=== PATIENT | female | born 1955 | race Caucasian/White ===

== ENCOUNTER 2019-06-12 06:34 | Inpatient (IN) ==
--- NOTE | 2019-05-22 09:31 | PAT Medication Instructions ---
Medication Instructions Date of Service May 22, 2019 Home Medications acetaminophen [Tylenol Extra Strength] 500 mg PO Q6H PRN albuterol sulfate 2 puff INHALATION Q6H PRN aspirin [Aspir-81] 81 mg PO QAM budesonide-formoterol [Symbicort] 2 puff INHALATION Q12H cyclosporine [Restasis] 1 drp OPHTHALMIC (EYE) Q12H levothyroxine 125 mcg PO QAM meloxicam 7.5 mg PO BID montelukast [Singulair] 10 mg PO PM omeprazole 40 mg PO BID simvastatin 20 mg PO HS ASK your surgeon for instructions meloxicam 7.5 mg PO BID Take morning of surgery With a small sip of water, OTHERWISE NOTHING TO EAT OR DRINK AFTER MIDNIGHT: acetaminophen [Tylenol Extra Strength] 500 mg PO Q6H PRN (okay to take up to 4 hours prior to surgery if needed) albuterol sulfate 2 puff INHALATION Q6H PRN (use if needed; please bring with you to hospital day of surgery if possible) aspirin [Aspir-81] 81 mg PO QAM budesonide-formoterol [Symbicort] 2 puff INHALATION Q12H cyclosporine [Restasis] 1 drp OPHTHALMIC (EYE) Q12H levothyroxine 125 mcg PO QAM omeprazole 40 mg PO BID Take evening before surgery acetaminophen [Tylenol Extra Strength] 500 mg PO Q6H PRN (if needed) albuterol sulfate 2 puff INHALATION Q6H PRN (if needed) budesonide-formoterol [Symbicort] 2 puff INHALATION Q12H cyclosporine [Restasis] 1 drp OPHTHALMIC (EYE) Q12H montelukast [Singulair] 10 mg PO PM omeprazole 40 mg PO BID simvastatin 20 mg PO HS Other Notes If you have any questions please call us at [phone] or [phone] or [phone] or [phone]
--- NOTE | 2019-05-23 14:03 | Anesthesiology Consultation ---
Date of Service May 23, 2019 Assessment & Plan (1) Encounter for pre-operative examination: (2) Obesity: - Awaiting review preop testing (labs, EKG, CXR). - Awaiting surgeon-ordered PCP preop evaluation. - Patient anxious RE: SAB: Patient reports fidgeting/aggressive reaction with either thumb surgery or shoulder surgery done with block + light sedation. Patient also anxious regarding SAB/hx migraines. Discussed SAB vs. GA: questions/concerns answered. Advised patient to discuss further AM DOS. Chart Review Chart Review: Patient seen in Pre Admission Testing Teaching & Discussion Pre-Anesthesia Teaching/Discussion Notes: Instructed NPO after midnight before surgery,except medications with 15 cc of water. Medication instructions provided according to the PAT guidelines. History Surgery Operation Date: 06/12/19 15:05 Proposed Procedures p Right Total Knee Arthroplasty - David Dinh MD Height/Weight Height: 5 ft Weight: 85 kg Allergies Allergy/AdvReac Type Severity Reaction Status Date / Time mold Allergy Unknown MOLD TREE Verified 05/15/19 13:20 POLLEN-ASTHMA SYMPTOMS adhesive tape AdvReac Unknown SKIN Verified 05/15/19 13:21 IRRITATION -PAPER TAPE OK garlic AdvReac Unknown NAUSEA AND Unverified 05/15/19 13:20 VOMITNG Penicillins AdvReac Unknown COLITIS Verified 05/15/19 13:20 INTERNAL BLEEDING tomato AdvReac Unknown TOMATO Verified 05/15/19 13:20 SAUCE-GERD Medications Home Medications Medication Instructions Recorded Confirmed Last Taken acetaminophen [Tylenol Extra 500 mg PO Q6H PRN 05/15/19 05/15/19 Unknown Strength] albuterol sulfate 2 puff INHALATION Q6H PRN 05/15/19 05/15/19 Unknown aspirin [Aspir-81] 81 mg PO QAM 05/15/19 05/15/19 Unknown budesonide-formoterol [Symbicort] 2 puff INHALATION Q12H 05/15/19 05/15/19 Unknown cyclosporine [Restasis] 1 drp OPHTHALMIC (EYE) Q12H 05/15/19 05/15/19 Unknown levothyroxine 125 mcg PO QAM 05/15/19 05/15/19 Unknown meloxicam 7.5 mg PO BID 05/15/19 05/15/19 Unknown montelukast [Singulair] 10 mg PO PM 05/15/19 05/15/19 Unknown omeprazole 40 mg PO BID 05/15/19 05/15/19 Unknown simvastatin 20 mg PO HS 05/15/19 05/15/19 Unknown Past Medical History Medical History Obesity Asthma GERD (gastroesophageal reflux disease) controlled Hiatal hernia Hyperlipidemia Hypothyroidism Migraine hx Temporomandibular joint disorder occasional clicking Exercise / Class Metabolic Activity III < 4 Walking/Shop/Light housework Past Family History Family History Mother Family history of diabetes mellitus Past Surgical History Surgical History Exploratory laparotomy scar MULTIPLE RELATED TO ENDOMETRIOSIS H/O shoulder surgery LEFT H/O sinus surgery MULTIPLE History of appendectomy History of arthroscopy R/L KNEE- MENISCUS REPAIR History of carpal tunnel release R/L History of hand surgery LEFT History of hysterectomy TOTAL History of tonsillectomy Past Anesthesia History No Family Hx of Anesthesia Complications and Other *Patient reports fidgeting/aggressive reaction with either thumb surgery or shoulder surgery done with block + light sedation.* History of PONV No Hx of PONV and No Hx of Motion Sickness Social History Smoking Status: Never smoker Do You Dip or Chew Tobacco: No Hx Alcohol Use: No Hx Substance Use: No Review of Systems Reflux controlled. Patient denies chest pain, shortness of breath, cough, wheezing, palpitations. Physical Exam Vital Signs VITALS BP 119/72 P 83 TEMP 98.0 SP02 93%RA RESP 16 PHYSICAL Full neck and c-spine range of motion. Full TMJ range of motion. TMD 3.5 finger breaths Mallampati Score 2 Dentition: temporary bridge lower front (plan to be cemented in prior to surgery/surgeon aware), partials upper/lower Lungs: clear throughout to auscultation Cardiac: regular rate and rhythm, no murmurs noted Spine: normal Carotid arteries: negative bruit Extremities: no edema
--- NOTE | 2019-05-23 15:06 | XRay Report ---
XR chest Pre-admission PA/Lat CLINICAL HISTORY: pat preoperative evaluation COMPARISON STUDY: No previous studies for comparison. FINDINGS: Lungs are clear. No significant cardiac enlargement. Prior left shoulder arthroplasty. IMPRESSION: No acute process. The above report was generated using voice recognition software. It may contain grammatical, syntax or spelling errors. Electronically signed by: Charles Mullen M.D. 05/23/2019 3:05 PM
[2019-05-23 16:07] LABS: Basophils # (auto) 0.04 K/uL (0-0.2); Basophils % (auto) 0.4 %; Eosinophils % (auto) 2.8 %; Hematocrit (blood only) 40.9 % (37-47); Immature Granulocytes # (auto) 0.03 K/uL (0.00-0.02); Immature Granulocytes % (auto) 0.3 %; Lymphocytes # (auto) 2.42 K/uL (1.2-3.4); Lymphocytes % (auto) 22.8 %; Mean Corpuscular Hgb Conc 34.2 g/dL (32-36); Mean Corpuscular Volume 90.7 fL (80-100); Mean Platelet Volume 10.4 fL (7.4-10.4); Monocytes # (auto) 0.88 K/uL (0.11-0.59); Monocytes % (auto) 8.3 %; Neutrophils # (auto) 6.93 K/uL (1.4-6.5); Neutrophils % (auto) 65.4 %; Platelet Count 334 K/uL (130-400); RDW Coefficient of Variation 13.2 % (11.5-14.5); RDW Standard Deviation 43.7 fL (36.4-46.3); Red Blood Count 4.51 M/uL (4.2-5.4)
[2019-05-23 16:15] LABS: Albumin Level 3.8 gm/dl (3.4-5.0); BUN Creatinine Ratio 25.3 (10-20); Calcium 9.3 mg/dl (8.5-10.1); Est GFR (African American) 87.6; Est GFR (Non-African American) 75.6; Potassium 3.8 mmol/L (3.5-5.1)
[2019-05-23 16:21] LABS: Partial Thromboplastin Time 26.4 Seconds (21.0-31.0); Prothrombin Time 10.1 Seconds (9.0-12.0)
[2019-05-24 05:47] LABS: Estimated Average Glucose 117 mg/dl; Hemoglobin A1C 5.7 % (4.5-5.6)
--- NOTE | 2019-06-11 22:16 | History and Physical Report ---
DATE OF ADMISSION: 06/12/2019 CHIEF COMPLAINT: Chronic right knee pain and instability. HISTORY OF PRESENT ILLNESS: This is a 63-year-old female patient of Dr. Dinh'senia complaining of chronic right knee pain and instability, longstanding, now progressively getting worse. The patient has failed conservative treatment including intra-articular injections, anti-inflammatories, home exercise program and the use of a brace and a cane. The patient has increased pain with weightbearing activities and her pain does interfere with her activities of daily living. The patient was diagnosed with end-stage osteoarthritis per clinical and radiographic exams and wishes to proceed with a right total knee arthroplasty. PAST MEDICAL HISTORY: Hypercholesterolemia, asthma, hypothyroidism, osteoarthritis, neck problems, sciatica, acid reflux, hiatal hernia, obesity. SOCIAL HISTORY: Nonsmoker, nondrinker. PAST SURGICAL HISTORY: Left shoulder replacement, hysterectomy, appendectomy, tonsillectomy, multiple sinus surgeries, bilateral knee meniscal repairs, bilateral carpal tunnel and left thumb fusion. FAMILY HISTORY: Noncontributory. REVIEW OF SYSTEMS: Chronic right knee pain and instability. Otherwise, denies any shortness of breath, chest pain, nausea, vomiting, or any joint complaints. MEDICATIONS: 1. Montelukast 10 mg daily. 2. Meloxicam 7.5 mg daily. 3. Omeprazole 40 mg twice daily. 4. Simvastatin 20 mg daily. 5. Budesonide/formoterol 160/4.5 mcg actuation inhaler 2 puffs twice daily. 6. Levothyroxine 112 mcg daily. 7. Zyrtec 10 mg daily. 8. Nasacort 55 mcg actuation inhaler 2 sprays twice daily. 9. DuoNeb nebulizer 0.5/2.5 mg per 3 mL nebulizers 4 times daily as needed. 10. Prophylactic antibiotics for dental work only. 11. Restasis 0.05% ophthalmic solution 1 drop in both eyes twice daily. 12. Sumatriptan 50 mg for migraines as needed. 13. Ventolin inhaler 108 mcg actuation inhaler daily as needed. 14. Aspirin 81 mg daily. ALLERGIES: INCLUDE PENICILLIN WHICH CAUSES GASTRITIS. PHYSICAL EXAMINATION: GENERAL: Well-developed, well-nourished, 63-year-old female in no acute distress. She is alert and oriented x3 and pleasant. HEENT: Normocephalic, atraumatic. Extraocular motions are intact. Pupils are equal and reactive to light. HEART: Regular rate and rhythm, no murmurs. LUNGS: Clear. ABDOMEN: Soft and nontender. Bowel sounds are present. EXTREMITIES: Right knee reveals a limited range of motion of 0-125 degrees. She has a varus deformity with medial joint line tenderness. She has crepitation with range of motion. She has 5/5 strength with pain in her right lower extremity. NEUROLOGIC: Neurovascularly, she is intact in her right lower extremity and she is noticed to need a cane with ambulation. DIAGNOSES: Right knee end-stage osteoarthritis, hypercholesterolemia, asthma, hypothyroidism, osteoarthritis, neck problems, sciatica, acid reflux, hiatal hernia, obesity. PLAN: The patient was advised of her diagnosis. Indications, risks, benefits, postop course have all been reviewed. The patient wished to proceed with a right total knee arthroplasty. Necessary consent forms, preoperative testing and clearances will be obtained.
[~2019-06-12 06:34] MED LIST: ACETAMINOPHEN 500 MG TAB PO SCH; CeleBREX 200 MG CAP PO SCH; FAMOTIDINE 20 MG TAB PO SCH; GABAPENTIN 600 MG DOSE PO SCH; LR 500ML BOLUS, THEN 15ML/HR IV SCH; METOCLOPRAMIDE HCL 10 MG TABLET PO SCH; ROPIVACAINE 0.5% HCL/PF 150 MG, BUPIVACAINE 0.5% MPF 30 ML, EPINEPHrine 30MG/30ML (OR U... INFIL SCH; TRANEXAMIC ACID 1,000 MG **IV Intra-op IV SCH; TRANEXAMIC ACID 1,000 MG **IV Pre-op IV SCH; VANCOMYCIN HCL 1,250 MG in SODIUM CHLORIDE 0.9% 250 ML IV SCH; dexAMETHasone 4 MG TAB PO SCH
[2019-06-12] MEDS ORDERED: ROPIVACAINE 0.5% 5 MG/ML 30 ML VIAL ONE (06:42)
[2019-06-12] MEDS ORDERED: BUPIVACAINE 0.5 % 5 MG/1 ML PF 10ML VIAL ONE (06:42)
[2019-06-12] MEDS ORDERED: EPINEPHrine INJ 1 MG/ML AMP ONE (06:43)
--- NOTE | 2019-06-12 07:08 | History & Physical Bridge Note ---
Date of Service June 12, 2019 History & Physical Bridge Note I have examined the patient, reviewed the History & Physical and in the interval since the performance of the History & Physical I have noted the following changes of clinical significance: no changes noted
[2019-06-12] MEDS ORDERED: fentaNYL citrate 100 MCG/2 ML VIAL IV PRN (07:21)
[2019-06-12] MEDS ORDERED: ATROPINE SULFATE 0.1 MG/ML 10ML SYR IV PRN (07:21)
[2019-06-12] MEDS ORDERED: LABETALOL HCL IV 5 MG/ML 20ML IV PRN (07:21)
[2019-06-12] MEDS ORDERED: ePHEDrine sulfate 50 MG/ML AMP IV PRN (07:21)
[2019-06-12] MEDS ORDERED: MEPERIDINE HCL 25 MG/ML CARP IV PRN (07:21)
[2019-06-12] MEDS ORDERED: ONDANSETRON INJ 2 MG/ML 2 ML VIAL IV PRN ×2 (07:21→12:05)
[2019-06-12] MEDS ORDERED: PHENYLEPHRINE 100MCG/ML 5ML SYR IV PRN (07:21)
[2019-06-12] MEDS ORDERED: HYDROmorphone INJ 1 MG/ML SYRINGE IV PRN (07:21)
[2019-06-12] MEDS ORDERED: ORTHO JOINT ANESTHETIC ONE (07:41)
[2019-06-12] MEDS ORDERED: BACITRACIN INJ 50,000 UNIT VIAL ONE (07:41)
[2019-06-12] MEDS ORDERED: MIDAZOLAM HCL 1 MG/ML 2ML VIAL ONE ×2 (07:57→08:48)
[2019-06-12] MEDS ORDERED: ONDANSETRON INJ 2 MG/ML 2 ML VIAL ONE (07:57)
[2019-06-12] MEDS ORDERED: LIDOCAINE HCL 2% 2 ML VIAL/AMP(20MG/ML) INFIL ONE (07:57)
[2019-06-12] MEDS ORDERED: PROPOFOL IV EMULSION 10 MG/ML 20 ML VIAL IV ONE (07:57)
[2019-06-12] MEDS ORDERED: KETAMINE HCL INJ 50 MG/ML 10 ML VIAL ONE (07:57)
[2019-06-12] MEDS ORDERED: GLYCOPYRROLATE 0.2 MG/ML VIAL ONE (07:57)
[2019-06-12] MEDS ORDERED: DEXAMETHASONE SOD INJ 4 MG/ML VIAL ONE (07:57)
--- NOTE | 2019-06-12 10:25 | Operative Report ---
Post Operative Report Pre & Post Diagnosis Operation Date: 06/12/19 08:50 Pre-Op Diagnosis: Right Knee End-Stage Osteoarthritis Post-Op Diagnosis: Right Knee End-Stage Osteoarthritis I identified the patient and participated in the time-out.: Yes Procedure Operation Date: 06/12/19 08:50 Actual Procedures p Right Total Knee Arthroplasty(Right) - David Dinh MD Surgeon David Dinh MD Product Expert Kody ARREDONDO Estimated Blood Loss 5 Findings Consistent with Post-Op Diagnosis Specimens Bone cuts Drains 2 Hemovac Anesthesia Type MAC Spinal Regional Complications none Disposition Accompanied Patient To Recovery: No Disposition: Recovery Room Indications 61-year-old female with chronic progressive osteoarthritis in her right knee. Radiographs demonstrate she is a varus knee [id number] medial compartment subluxation of femur on the tibia. Description of Procedure Patient taken to the operating room the size under spinal MAC regional anesthesia. Patient was placed supine on the operating table. A pneumatic tourniquet was placed about the right upper thigh. The right lower extremity was prepped and draped in sterile fashion. Knee exam demonstrated positive Sully exam subluxation the femur on tibia varus knee 0 through 125 degrees range of motion. The leg was elevated exsanguinated with an Esmarch bandage and pneumatic tourniquet was raised to 325 millimeters of mercury. Skin incised sharply in longitudinal fashion. Subcutaneous flaps elevated. Incision was made through the medial retinaculum extending up in the mid third of the quadriceps tendon and down to the medial tibial tubercle. Intra-articular findings demonstrated tricompartmental osteoarthritis [id number] medial compartment chronic ACL tear. The MWI triathlon total knee arthroplasty system was used. To expose the knee the infrapatellar fat pad was resected. The meniscal remnants and cruciate ligaments were resected. The anterior fat pad over the femur in the area of the anterior flange of the femoral component was resected. Lateral synovial bands release. The femur was exposed. An in tramedullary drill hole was made into the canal. A guide jyoti was placed. Distal femoral cutting guide was adjusted to resect a 5 degree valgus cut with 8 millimeters distal femur resected. The knee was extended and a subperiosteal peel lateral release was performed around the patella. Patella width was measured and width was reproduced using a freehand cut technique and a 31 x 9 symmetrical patella component. The 3 drill holes were made and the excess lateral facet was beveled off to prevent any impingement. Attention was taken back to the femur which was exposed with retractors and the femoral sizing guide was pinned in position. The drill holes were placed in 3 of external rotation to match epicondylar axis. Femur sized for a 4 component. The 4-in-1 cutting block was placed and then the anterior posterior and chamfer cuts are made. The tibia was then subluxed. The external tibial cutting guide was just to make a perpendicular cut to the long axis of the tibia below the most deficient bone loss side. A lamina veneer trimmer was used and the flexion extension gaps were balanced. All posterior osteophytes removed. All meniscal remnants were resected. The tibia exposed and the trial tibial component size 3 was externally rotated in line with the tibial tubercle and pinned in position. The punch for stem was used. Drill holes were made in the sclerotic bone medial proximal tibia to enhance cement fixation. The notch cutting device was centered appropriately and the femoral notch cut was made. The femoral trial was inserted. Trial tibial inserts were placed and size 11 gave balanced ligaments through flexion and extension. Patella tracking was assessed. The patella tracked centrally. The trial components were then removed and the orthomix anesthetic cocktail was injected per protocol. The knee was then copiously irrigated with pulsatile lavage antibiotic solution. Final components were then cemented with Simplex cement. Final components were Lenox triathlon size 4 right posterior stabilized femoral component, 3 primary tibial baseplate, 3 bilaminar X3 polyethylene triathlon posterior stabilized tibial bearing insert. Triathlon X3 symmetrical patella S 31 x 9 mm.. While the cement cured the Betadine soak was used per protocol. After cement cured further pulsatile lavage irrigation performed and 2 Hemovac drains were brought out laterally. The quadriceps tendon and medial retinaculum were closed with figure of 8 #1 Vicryl sutures. The knee was taken through full range of motion and the repair was secure. The subcutaneous tissues were closed with 2-0 Vicryl sutures. Skin was closed with damien. Sterile dressings were applied. Patient procedure well. Kody ARREDONDO was my physician assistant professor of drama who assisted in patient positioning prepping and draping,leg positioning ,soft tissue retraction and instrument management and participated in the closing and will participate in postoperative care of the patient. The patient tolerated the procedure well. I attest to the content of the Intraoperative Record and any orders documented therein. Any exceptions are noted below.
--- NOTE | 2019-06-12 11:25 | Anesthesiology Progress Note ---
Date of Service June 12, 2019 Anesthesia Post Procedure Vital Signs Vital Signs: Temp Pulse Pulse Resp BP Pulse Ox 06/12/19 11:10 83 19 103/66 93 06/12/19 11:00 87 18 99/63 L 92 06/12/19 10:50 36.4 C L 101 H 16 104/55 L 92 06/12/19 07:06 36.5 C 72 20 143/82 H 93 Transfer of Care Handoff Completed per policy Notes Mental Status: alert / awake / arousable Patient Amnestic to Procedure: Yes Nausea / Vomiting: adequately controlled Pain: adequately controlled Airway Patency, RR, SpO2: stable & adequate BP & HR: stable & adequate Hydration State: stable & adequate Neuraxial Anesthesia: was administered and sensory block is resolving Anesthetic Complications: no major complications apparent and Pt Satisfied with anesthetic care Notes: The patient had two spinals with CSF noted on both attempts. The patient did not have resulting numbness in the and was able to move her legs in the OR so a general anesthetic was performed. The patient tolerated the procedure well. In the PACU, the patient is moving her legs but does appear to have some numbness from the spinals as well as the adductor block. The patient has no pain. The patient was instructed to watch for any new onset of numbness, weakness, or incontinence and to report any of those signs immediately to a nurse on the floor if in the hospital or to go to the ER if at home.
--- NOTE | 2019-06-12 11:32 | XRay Report ---
TWO VIEWS RIGHT KNEE CLINICAL HISTORY: Postoperative examination. FINDINGS: AP and crosstable lateral portable views of the right knee are obtained. A right knee arthr oplasty is in near anatomic alignment. There has been undersurface remodeling of the patella. No acut e fracture is seen. There are expected postoperative changes around the knee including skin clips, a surgical drain, soft tissue edema, and subcutaneous gas. IMPRESSION: Expected postoperative changes status post right knee arthroplasty. No acute fracture is seen. Electronically signed by: Ko Carlin M.D. 06/12/2019 11:30 AM
[2019-06-12] MEDS ORDERED: VANCOMYCIN CONSULT ACTIVE PRN (12:05)
[2019-06-12] MEDS ORDERED: BISACODYL 10 MG SUPP PR PRN (12:05)
[2019-06-12] MEDS ORDERED: MAGNESIUM HYDROXIDE SUSP 30 ML UDC PO PRN (12:05)
[2019-06-12] MEDS ORDERED: ALBUTEROL HFA 8 GM INHALER INH PRN (12:05)
[2019-06-12] MEDS ORDERED: NON-FORMULARY MEDICATION (Cyclosporine [Restasis] 1 DROPS) OP SCH (12:05)
[2019-06-12] MEDS ORDERED: NALOXONE HCL 0.4 MG/1 ML VIAL/CARP IV PRN (12:05)
[2019-06-12] MEDS: ACETAMINOPHEN 500 MG TAB PO SCH ×2 (13:45→20:28)
[2019-06-12] MEDS: SODIUM CHLORIDE 0.9% 1000ML 1,000 ML IV SCH ×2 (13:45→22:14)
[2019-06-12] MEDS: OXYCODONE HCL IR 5 MG TAB (IMMEDIATE RELEASE) PO PRN ×2 (13:46→19:05)
[2019-06-12] MEDS: BUDESONIDE/FORMOTEROL FUMARATE 160/4.5 60 PUFFS/INHALER INH SCH ×2 (13:51→23:11)
[2019-06-12] MEDS ORDERED: ALBUT/IPRATROP 3MG/0.5MG NEB 3 ML VIAL NEB PRN (16:06)
--- NOTE | 2019-06-12 16:17 | Hospitalist Consultation ---
Date of Consultation June 12, 2019 Assessment & Plan (1) Knee pain: s/o R TKA on 06/[address] Dinh As per ortho Pre-op Hb 14.0 (2) Asthma: Some air gasping when I entered the room initially, but this cleared with coughing and appears related to eating too quickly No wheezing noted PRN nebs Feels asthma is well controlled with symbicort, rare home albuterol use (3) Hypothyroidism: continue home meds (4) Hyperlipidemia: continue home meds (5) GERD (gastroesophageal reflux disease): continue home meds (6) DVT prophylaxis: As per ortho Hx of 81mg aspirin use for prevention only, resume as per ortho History of Present Illness Attending Physician: David Dinh MD History of Present Illness 63 y/o F who was admitted on 06/12 s/p R TKA with Dr. Dinh. As I entered the room, pt was coughing and gasping. She had been eating and suddenly felt like she could not swallow. She states the beef she was eating was dry. She states she was not SOB prior to eating. She is uncertain if this is similar to her asthma or if it was related to eating too quickly. She does not know if she was wheezing. Pt denies fever, chest pain, abd pain, n/v/c/d, LE swelling. No pain related to OR. By the end of discussion, pt was no longer coughing or gasping and had resumed her meal stating she felt better. Allergies Allergy/AdvReac Type Severity Reaction Status Date / Time mold Allergy Unknown MOLD TREE Verified 06/12/19 07:18 POLLEN-ASTHMA SYMPTOMS adhesive tape AdvReac Unknown SKIN Verified 06/12/19 07:18 IRRITATION -PAPER TAPE OK garlic AdvReac Unknown NAUSEA AND Verified 06/12/19 07:18 VOMITNG Penicillins AdvReac Unknown COLITIS Verified 06/12/19 07:18 INTERNAL BLEEDING tomato AdvReac Unknown TOMATO Verified 06/12/19 07:18 SAUCE-GERD Home Medications Home Medications Medication Instructions Recorded Confirmed Type acetaminophen [Tylenol Extra 500 mg PO Q6H PRN 05/15/19 06/12/19 History Strength] albuterol sulfate 2 puff INHALATION Q6H PRN 05/15/19 05/15/19 History aspirin [Aspir-81] 81 mg PO QAM 05/15/19 05/15/19 History budesonide-formoterol [Symbicort] 2 puff INHALATION Q12H 05/15/19 06/12/19 History cyclosporine [Restasis] 1 drp OPHTHALMIC (EYE) Q12H 05/15/19 05/15/19 History levothyroxine 112 mcg PO QAM 05/15/19 05/23/19 History meloxicam 7.5 mg PO BID 05/15/19 05/15/19 History montelukast [Singulair] 10 mg PO PM 05/15/19 06/12/19 History omeprazole 40 mg PO BID 05/15/19 06/12/19 History simvastatin 20 mg PO HS 05/15/19 06/12/19 History Patient History Medical History Obesity Asthma GERD (gastroesophageal reflux disease) controlled Hiatal hernia Hyperlipidemia Hypothyroidism Migraine hx Temporomandibular joint disorder occasional clicking Surgical History Exploratory laparotomy scar MULTIPLE RELATED TO ENDOMETRIOSIS H/O shoulder surgery LEFT H/O sinus surgery MULTIPLE History of appendectomy History of arthroscopy R/L KNEE- MENISCUS REPAIR History of carpal tunnel release R/L History of hand surgery LEFT History of hysterectomy TOTAL History of tonsillectomy Family History (Updated 06/12/19 @ 16:11 by Citlalli Niño DO) Mother , CHF Family history of diabetes mellitus Father TIA (transient ischemic attack) Social History Preferred Language: Colombian Communication Ability: Effective Industrial Relations Director Required: No Beliefs That Will Affect Care: None Current Living Situation: Parent Other Information That Helps Us Care for You: No Feels Safe at Home: Yes Safety Concerns: Feels Safe At This Time Smoking Status: Never smoker Do You Dip or Chew Tobacco: No ; Second Hand Exposure: No ; Hx Alcohol Use: No Hx Substance Use: No Review of Systems Review of Systems: Pertinent positives and negatives reviewed in HPI--all others negative Physical Exam Constitutional: WD/WN, vitals as above Eyes: normal visual villasenor by confrontation and + anicteric sclerae Neck: normal visual inspection and trachea midline Respiratory: Auscultation: lungs clear to auscultation bilaterally Initially gasping for air, however no wheezing noted. Good air movement. No r espiratory distress other than gasping and this resolved after about 1 minute Pt was able to have a full conversation Cardiovascular: Rate/Rhythm: regular rate and regular rhythm Gastrointestinal (Abdomen): Inspection/Auscultation: abdomen not distended Percussion/Palpation: abdomen soft; abdomen nontender Musculoskeletal: Head/Neck/Chest: normocephalic and head atraumatic negative for edema, peripheral pulses intact Skin: no rashes, warm and dry Neurologic: awake; not confused Speech / Cognition: normal speech Psychiatric: A+Ox3, euthymic affect Results & Data Vital Signs (Past 12 Hours) Vital Signs Temp Pulse Pulse Resp BP Pulse Ox 06/12/19 15:02 36.4 C L 82 17 108/63 98 06/12/19 13:45 86 16 106/66 97 06/12/19 12:50 86 17 113/73 93 06/12/19 12:20 77 16 116/76 97 06/12/19 11:50 36.6 C 76 16 107/70 94 06/12/19 11:35 77 15 111/56 L 97 06/12/19 11:20 36.5 C 85 22 103/65 93 06/12/19 11:10 83 19 103/66 93 06/12/19 11:00 87 18 99/63 L 92 06/12/19 10:50 36.4 C L 101 H 16 104/55 L 92 06/12/19 07:06 36.5 C 72 20 143/82 H 93 Diagnostic Findings CXR: neg for acute PG Care Time/CCT Total # of Minutes Spent Total Time Spent with Patient: Total time spent is greater than 50% in coordination of care (as documented) at patient's floor/unit and/or counseling patient:
[2019-06-12] MEDS: HYDROmorphone INJ 0.5 MG/0.5 ML SYR IV PRN (16:48)
[2019-06-12] MEDS: FERROUS GLUCONATE 324 MG TAB PO SCH (17:39)
[2019-06-12] MEDS ORDERED: VANCOMYCIN HCL 1,250 MG in SODIUM CHLORIDE 0.9% 250 ML IV SCH (19:00)
[2019-06-12] MEDS: DOCUSATE SODIUM 100 MG CAP PO SCH (20:25)
[2019-06-12] MEDS: PANTOprazole 40 MG TAB PO SCH (20:25)
[2019-06-12] MEDS: SENNA 8.6 MG TAB PO SCH (20:26)
[2019-06-12] MEDS: MONTELUKAST SODIUM 10 MG TABLET PO SCH (20:27)
[2019-06-12] MEDS: ASPIRIN 81 MG ECTAB PO SCH (20:27)
[2019-06-12] MEDS: SIMVASTATIN 20 MG TAB PO SCH (20:28)
[2019-06-13] MEDS: OXYCODONE HCL IR 5 MG TAB (IMMEDIATE RELEASE) PO PRN ×4 (02:26→17:27)
[2019-06-13] MEDS: ACETAMINOPHEN 500 MG TAB PO SCH ×3 (05:31→22:37)
[2019-06-13] MEDS: LEVOTHYROXINE SODIUM 112 MCG TABLET PO SCH (05:31)
[2019-06-13 05:57] LABS: Hematocrit (blood only) 33.3 % (37-47); Hemoglobin 11.1 g/dL (12.0-16.0); Mean Corpuscular Hemoglobin 30.9 pg (25-34); Mean Corpuscular Hgb Conc 33.3 g/dL (32-36); Mean Corpuscular Volume 92.8 fL (80-100); Mean Platelet Volume 9.8 fL (7.4-10.4); Platelet Count 282 K/uL (130-400); RDW Coefficient of Variation 13.2 % (11.5-14.5); Red Blood Count 3.59 M/uL (4.2-5.4); White Blood Count 20.03 K/uL (4.8-10.8)
[2019-06-13 06:25] LABS: BUN Creatinine Ratio 19.3 (10-20); Calcium 8.9 mg/dl (8.5-10.1); Creatinine Clr Calc Pharmacy 74.8 ml/min; Est GFR (African American) 102.3; Est GFR (Non-African American) 88.3; Potassium 3.8 mmol/L (3.5-5.1)
[2019-06-13] MEDS: BUDESONIDE/FORMOTEROL FUMARATE 160/4.5 60 PUFFS/INHALER INH SCH ×2 (07:29→22:37)
[2019-06-13] MEDS: PANTOprazole 40 MG TAB PO SCH ×2 (07:38→20:25)
--- NOTE | 2019-06-13 07:53 | Orthopedic Progress Note ---
Date of Service June 13, 2019 Assessment & Plan (1) Knee pain: POD #1, Right TKA PT/ OT DVT proph- ASA D/C planning- Home w HH As per medicine. Subjective POD #1, States she has been having some typical asthma issues- has rescue inhaler at bedside. Denies SOB, CP, N/V. Pain controlled well Wishes HH at D/C. Physical Exam Physical Exam: Right knee dressing c/d/i. No drainage, drain in tact. Toes/ ankle mobile. No calf tenderness. N/V+. A&Ox3. Results & Data Vital Signs (Past 12 Hours) Vital Signs Temp Pulse Resp BP Pulse Ox 06/13/19 06:56 36.6 C 70 16 104/63 95 06/13/19 03:05 36.8 C 69 18 97/59 L 94 06/12/19 23:08 36.8 C 60 16 92/56 L 95
[2019-06-13] MEDS ORDERED: Nursing to Pharmacy Communication ONE ×2 (07:54→22:44)
--- NOTE | 2019-06-13 08:08 | Anesthesiology Progress Note ---
Date of Service June 13, 2019 Anesthesia Post Procedure Vital Signs Vital Signs: Temp Pulse Pulse Resp BP Pulse Ox 06/13/19 08:02 82 18 94 06/13/19 06:56 36.6 C 70 16 104/63 95 06/13/19 03:05 36.8 C 69 18 97/59 L 94 06/12/19 23:08 36.8 C 60 16 92/56 L 95 06/12/19 19:35 36.8 C 98 H 17 111/69 91 06/12/19 15:02 36.4 C L 82 17 108/63 98 06/12/19 13:45 86 16 106/66 97 06/12/19 12:50 86 17 113/73 93 06/12/19 12:20 77 16 116/76 97 06/12/19 11:50 36.6 C 76 16 107/70 94 06/12/19 11:35 77 15 111/56 L 97 06/12/19 11:20 36.5 C 85 22 103/65 93 06/12/19 11:10 83 19 103/66 93 06/12/19 11:00 87 18 99/63 L 92 06/12/19 10:50 36.4 C L 101 H 16 104/55 L 92 Pain Intensity Right Knee: Pain Intensity: 8 Notes Mental Status: alert / awake / arousable and participated in evaluation Nausea / Vomiting: adequately controlled Pain: adequately controlled Airway Patency, RR, SpO2: stable & adequate BP & HR: stable & adequate Hydration State: stable & adequate Neuraxial Anesthesia: sensory block resolved Anesthetic Complications: no major complications apparent
[2019-06-13] MEDS: ASPIRIN 81 MG ECTAB PO SCH ×2 (08:15→20:27)
[2019-06-13] MEDS: DOCUSATE SODIUM 100 MG CAP PO SCH ×2 (08:15→20:27)
[2019-06-13] MEDS: MULTIVITAMIN TAB PO SCH (08:15)
[2019-06-13] MEDS: FERROUS GLUCONATE 324 MG TAB PO SCH ×2 (08:16→17:27)
[2019-06-13] MEDS ORDERED: PNEUMOCOCCAL ADMINISTRATION CHARGE ONE (11:15)
[2019-06-13] MEDS ORDERED: PNEUMOCOCCAL POLYSACCHARIDES 25 MCG/0.5 ML VIAL/SYR IM ONE (11:15)
--- NOTE | 2019-06-13 11:33 | Hospitalist Progress Note ---
Date of Service June 13, 2019 Assessment & Plan (1) Knee pain: - S/p R TKA on 06/12, POD#1. - Pain management per primary team. - DVT ppx: 81 mg BID. - PT/OT evaluation for discharge planning. - Monitor H/H daily -- has been trending down as expected post operatively. Also has leukocytosis, steroid induced. (2) Asthma: - No acute exacerbation noted. - Continue home Symbicort & Singulair as prescribed. - Albuterol and Duonebs prn. (3) Hypothyroidism: - Continue home Levothyroxine 112 mcg daily. - No recently documented TSH in our system -- recommend test as outpatient by PCP. (4) Hyperlipidemia: - Continue Zocor as prescribed. (5) GERD (gastroesophageal reflux disease): - Continue PPI BID. (6) Obesity: - BMI 37.2 -- encourage weight loss and exercise (7) DVT prophylaxis: - ASA 81 mg BID. Dispo: Med/surg; will sign off, please call with any questions. Subjective Pt. is doing well overall - does c/o right knee pain. No BM yet, is passing gas. Denies urinary retention. Is anticipating working with PT/OT this morning. Review of Systems Review of Systems: All systems reviewed & are unremarkable except as noted in HPI & below Constitutional: no fever, no chills, no fatigue and no weakness Respiratory: no cough, no dyspnea, no dyspnea on exertion and no wheezing Cardiovascular: no chest pain and no palpitations Gastrointestinal: + constipation; no abdominal pain and no nausea Genitourinary: no difficulty urinating and no decreased urination Musculoskeletal: + joint pain; no back pain Physical Exam Physical Exam: General: Resting comfortably HEENT: NC/AT; PERRLA with EOMI; Rex conjunctiva, MMM. No erythema of posterior pharynx Neck: Supple and nontender Cardiac: RRR Lungs: CTA bilaterally Abdomen: Bowel normoactive X 4; Nontender to palpation Extremities: Warm. No edema present. Dressing in place over right knee, +drain. Neuro: No focal weakness Skin: No rash Results & Data Vital Signs (Past 12 Hours) Vital Signs Temp Pulse Resp BP Pulse Ox 06/13/19 10:41 36.6 C 85 16 108/69 94 06/13/19 08:02 82 18 94 06/13/19 06:56 36.6 C 70 16 104/63 95 06/13/19 03:05 36.8 C 69 18 97/59 L 94 Laboratory Results 06/13/19 06/13/19 06/13/19 Range/Units 05:38 05:38 05:38 WBC 20.03 H (4.8-10.8) K/uL RBC 3.59 L (4.2-5.4) M/uL Hgb 11.1 L (12.0-16.0) g/dL Hct 33.3 L (37-47) % MCV 92.8 (80-100) fL MCH 30.9 (25-34) pg MCHC 33.3 (32-36) g/dL RDW Std Deviation 45.0 (36.4-46.3) fL RDW Coeff of Scarlet 13.2 (11.5-14.5) % Plt Count 282 (130-400) K/uL MPV 9.8 (7.4-10.4) fL Sodium 140 (136-145) mmol/L Potassium 3.8 (3.5-5.1) mmol/L Chloride 110 H (98-107) mmol/L Carbon Dioxide 26 (21-32) mmol/L Anion Gap 4.0 (3-11) BUN 14 (7-18) mg/dl Creatinine 0.73 (0.6-1.2) mg/dl Est Cr Clr Drug Dosing 74.8 ml/min Est GFR ( Amer) 102.3 Est GFR (Non-Af Amer) 88.3 BUN/Creatinine Ratio 19.3 (10-20) Glucose 130 H (70-99) mg/dl Calcium 8.9 (8.5-10.1) mg/dl Hepatitis C Ab Screen Neg (Neg) PG Care Time/CCT Total # of Minutes Spent Total Time Spent with Patient: Total time spent is greater than 50% in coordination of care (as documented) at patient's floor/unit and/or counseling patient:
[2019-06-13] MEDS: HYDROmorphone INJ 0.5 MG/0.5 ML SYR IV PRN (18:45)
[2019-06-13] MEDS: ALUMINUM/MAGNESIUM SUSP 30 ML UDC PO PRN (20:24)
[2019-06-13] MEDS: SENNA 8.6 MG TAB PO SCH (20:26)
[2019-06-13] MEDS: SIMVASTATIN 20 MG TAB PO SCH (20:26)
[2019-06-13] MEDS: MONTELUKAST SODIUM 10 MG TABLET PO SCH (20:26)
[2019-06-14] MEDS: OXYCODONE HCL IR 5 MG TAB (IMMEDIATE RELEASE) PO PRN ×3 (02:59→11:38)
[2019-06-14] MEDS: HYDROmorphone INJ 0.5 MG/0.5 ML SYR IV PRN (04:15)
[2019-06-14 05:44] LABS: Hemoglobin 10.2 g/dL (12.0-16.0); Mean Corpuscular Hemoglobin 30.9 pg (25-34); Mean Corpuscular Hgb Conc 32.9 g/dL (32-36); Mean Corpuscular Volume 93.9 fL (80-100); Mean Platelet Volume 10.4 fL (7.4-10.4); Platelet Count 269 K/uL (130-400); RDW Coefficient of Variation 13.8 % (11.5-14.5); RDW Standard Deviation 47.8 fL (36.4-46.3); White Blood Count 10.19 K/uL (4.8-10.8)
[2019-06-14] MEDS: LEVOTHYROXINE SODIUM 112 MCG TABLET PO SCH (05:49)
[2019-06-14] MEDS: ACETAMINOPHEN 500 MG TAB PO SCH ×2 (05:49→13:51)
[2019-06-14] MEDS: BUDESONIDE/FORMOTEROL FUMARATE 160/4.5 60 PUFFS/INHALER INH SCH (07:39)
[2019-06-14] MEDS: PANTOprazole 40 MG TAB PO SCH (07:40)
[2019-06-14] MEDS: MULTIVITAMIN TAB PO SCH (07:40)
[2019-06-14] MEDS: FERROUS GLUCONATE 324 MG TAB PO SCH (07:40)
[2019-06-14] MEDS: ASPIRIN 81 MG ECTAB PO SCH (07:40)
[2019-06-14] MEDS: DOCUSATE SODIUM 100 MG CAP PO SCH (07:40)
--- NOTE | 2019-06-14 08:10 | Orthopedic Progress Note ---
Date of Service June 14, 2019 Assessment & Plan (1) Knee pain: POD #2, Right TKA Nausea this AM which seems to be resolving. PT/ OT DVT proph- ASA D/C planning- Home w HH- possble dc to home today if tolerating po and progressing with PT As per medicine. Subjective Patient is postop day 2 status post total knee arthroplasty. Currently, the patient is sitting up in bed and is awake and alert. Some nausea this AM with 1 episode of emesis. Feels it was secondary to something she ate. Denies shortness of breath, chest pain, lightheadedness. Adequate pain control at present time. She is hoping to go home today. Physical Exam Physical Exam: Silverlon dressing is clean, dry, intact. Minimal drainage in the dressing window. Small dressing noted over the drain site which has some drainage noted. Calves are soft and nontender. Neurovascular is intact. Toes are mobile. Mild bruising noted. Results & Data Vital Signs (Past 12 Hours) Vital Signs Temp Pulse Resp BP Pulse Ox 06/14/19 06:16 36.5 C 64 16 116/75 98 06/13/19 23:04 36.7 C 78 15 102/60 94 Laboratory Results Laboratory Results WBC 10.19 K/uL (4.8-10.8) 06/14/19 04:42 RBC 3.30 M/uL (4.2-5.4) L 06/14/19 04:42 Hgb 10.2 g/dL (12.0-16.0) L 06/14/19 04:42 Hct 31.0 % (37-47) L 06/14/19 04:42 MCV 93.9 fL (80-100) 06/14/19 04:42 MCH 30.9 pg (25-34) 06/14/19 04:42 MCHC 32.9 g/dL (32-36) 06/14/19 04:42 RDW Std Deviation 47.8 fL (36.4-46.3) H 06/14/19 04:42 RDW Coeff of Scarlet 13.8 % (11.5-14.5) 06/14/19 04:42 Plt Count 269 K/uL (130-400) 06/14/19 04:42 MPV 10.4 fL (7.4-10.4) 06/14/19 04:42 Immature Gran % (Auto) 0.3 % 05/23/19 14:23 Neut % (Auto) 65.4 % 05/23/19 14:23 Lymph % (Auto) 22.8 % 05/23/19 14:23 [place] % (Auto) 8.3 % 05/23/19 14:23 Eos % (Auto) 2.8 % 05/23/19 14:23 Baso % (Auto) 0.4 % 05/23/19 14:23 Immature Gran # (Auto) 0.03 K/uL (0.00-0.02) H 05/23/19 14:23 Neut # (Auto) 6.93 K/uL (1.4-6.5) H 05/23/19 14:23 Lymph # (Auto) 2.42 K/uL (1.2-3.4) 05/23/19 14:23 [place] # (Auto) 0.88 K/uL (0.11-0.59) H 05/23/19 14:23 Eos # (Auto) 0.30 K/uL (0-0.5) 05/23/19 14:23 Baso # (Auto) 0.04 K/uL (0-0.2) 05/23/19 14:23 PT 10.1 Seconds (9.0-12.0) 05/23/19 14:23 INR 1.0 (0.9-1.1) 05/23/19 14:23 APTT 26.4 Seconds (21.0-31.0) 05/23/19 14:23 PTT Ratio 1.0 05/23/19 14:23 Sodium 140 mmol/L (136-145) 06/13/19 05:38 Potassium 3.8 mmol/L (3.5-5.1) 06/13/19 05:38 Chloride 110 mmol/L (98-107) H 06/13/19 05:38 Carbon Dioxide 26 mmol/L (21-32) 06/13/19 05:38 Anion Gap 4.0 (3-11) 06/13/19 05:38 BUN 14 mg/dl (7-18) 06/13/19 05:38 Creatinine 0.73 mg/dl (0.6-1.2) 06/13/19 05:38 Est Cr Clr Drug Dosing 74.8 ml/min 06/13/19 05:38 Est GFR ( Amer) 102.3 06/13/19 05:38 Est GFR (Non-Af Amer) 88.3 06/13/19 05:38 BUN/Creatinine Ratio 19.3 (10-20) 06/13/19 05:38 Glucose 130 mg/dl (70-99) H 06/13/19 05:38 Estimat Average Glucose 117 mg/dl 05/23/19 14:23 Hemoglobin A1c 5.7 % (4.5-5.6) H 05/23/19 14:23 Calcium 8.9 mg/dl (8.5-10.1) 06/13/19 05:38 Albumin 3.8 gm/dl (3.4-5.0) 05/23/19 14:23 Hepatitis C Ab Screen Neg (Neg) 06/13/19 05:38 Blood Type A Positive 05/23/19 14:23 Antibody Screen NEGATIVE 05/23/19 14:23
[2019-06-14] MEDS: ALUMINUM/MAGNESIUM SUSP 30 ML UDC PO PRN (10:37)
[2019-06-14] MEDS ORDERED: PNEUMOCOCCAL ADMINISTRATION CHARGE ONE (11:45)
[2019-06-14] MEDS ORDERED: PNEUMOCOCCAL POLYSACCHARIDES 25 MCG/0.5 ML VIAL/SYR IM ONE (11:45)
--- NOTE | 2019-06-15 21:38 | Discharge Summary ---
DISCHARGE DIAGNOSIS: Degenerative joint disease, right knee. SECONDARY DIAGNOSES: Hypercholesterolemia, asthma, hypothyroidism, sciatica, gastroesophageal reflux disease, hiatal hernia. CONSULTS: Dr. Citlalli Niño. COMPLICATIONS: None. PROCEDURES: Right total knee arthroplasty performed by Dr. Dinh on 06/12/2019. BRIEF HISTORY: As dictated in the history and physical. HOSPITAL SUMMARY: The patient was admitted on the above-noted date and had the above-noted surgery performed, which she tolerated well. On the first postoperative day, she was having some typical asthma issues and has her inhaler at the bedside. She at that time had no shortness of breath or chest pain. Pain was controlled and was planning for home health services on discharge. Dressings were intact, neurovascular was intact. Toes were mobile. Drain was functioning and she was alert and oriented. Vital signs were stable and she was afebrile. Pulse ox was 95. She was started on PT and OT protocols, continued on DVT prophylaxis and pain management as well as medical management per [facility]. By her second postoperative day, she was sitting in the bed, awake and alert. She had some nausea that morning with one episode of emesis and felt it was secondary to something she ate prior. Denied shortness of breath, chest pain or lightheadedness. She had adequate pain control and was hoping to go home. Silverlon dressing was clean, dry and intact. She had minimal drainage in the dressing window, small dressing noted over the drain site which had some drainage noted. Calves were soft, nontender, neurovascular intact. Toes were mobile. Mild bruising noted over the knee. Vital signs were stable. She was afebrile. Pulse ox was 98. She was continued on her PT and OT protocols and was planning for home health services upon discharge that had been arranged. She was remaining stable later that day and she had no more nausea which had resolved and it was felt she could be discharged to home. For further review, please see chart. LABORATORY AND X-RAY DATA: As per chart. DISCHARGE INSTRUCTIONS: The patient was discharged home in satisfactory condition. Activity: Weightbearing as tolerated on the right lower extremity with a walker. Regular diet: Follow TK instruction sheets and special care instructions as noted. Follow up with Dr. Dinh in 2 weeks. The patient is to call for appointment if one has not been made for you. DISCHARGE MEDICATIONS: Acetaminophen 1000 mg p.o. q. 8 hours, aspirin 81 mg p.o. b.i.d., oxycodone 5 mg p.o. q. 4 hours p.r.n. and Senokot 17.2 mg p.o. at bedtime. Resume home meds as listed and stop taking previous acetaminophen, previous aspirin and meloxicam dosages.
== END 2019-06-14 14:20 | disposition home health service (06) | DRG 470 ==
LOC: ASU 06:34 → 3E 10:58

== ENCOUNTER 2020-05-02 09:35 | Inpatient (IN) ==
--- NOTE | 2020-04-05 14:57 | PAT Medication Instructions ---
Medication Instructions Date of Service April 05, 2020 Home Medications Restasis 1 drp OPHTHALMIC (EYE) Q12H albuterol sulfate 2 puff INHALATION Q6H PRN budesonide-formoterol [Symbicort] 2 puff INHALATION Q12H montelukast [Singulair] 10 mg PO PM omeprazole 40 mg PO BID simvastatin 20 mg PO HS Probiotic 1 dose PO QAM aspirin [Aspir-81] 81 mg PO QAM diphenhydramine-acetaminophen [Tylenol PM Extra Strength] 1 tab PO HS PRN levothyroxine 100 mcg PO QAM tramadol 50 mg PO Q8H PRN DO NOT take the morning of surgery Probiotic 1 dose PO QAM Take morning of surgery With a small sip of water, OTHERWISE NOTHING TO EAT OR DRINK AFTER MIDNIGHT: Restasis 1 drp OPHTHALMIC (EYE) Q12H albuterol sulfate 2 puff INHALATION Q6H PRN (use if needed; please bring with you to hospital day of surgery if possible) budesonide-formoterol [Symbicort] 2 puff INHALATION Q12H omeprazole 40 mg PO BID aspirin [Aspir-81] 81 mg PO QAM levothyroxine 100 mcg PO QAM tramadol 50 mg PO Q8H PRN (okay to take up to 4 hours prior to surgery if needed) Take evening before surgery Restasis 1 drp OPHTHALMIC (EYE) Q12H albuterol sulfate 2 puff INHALATION Q6H PRN (if needed) budesonide-formoterol [Symbicort] 2 puff INHALATION Q12H montelukast [Singulair] 10 mg PO PM omeprazole 40 mg PO BID simvastatin 20 mg PO HS diphenhydramine-acetaminophen [Tylenol PM Extra Strength] 1 tab PO HS PRN (if needed) tramadol 50 mg PO Q8H PRN (if needed) Other Notes If you have any questions please call us at [phone] or [phone] or [phone] or [phone]
--- NOTE | 2020-04-09 08:49 | Anesthesiology Consultation ---
Date of Service April 09, 2020 Assessment & Plan (1) Encounter for pre-operative examination: Chart Review Chart Review: Acceptable Risk for Surgery (pending preop Covid testing ) and Patient seen in Pre Admission Testing Per PAT appt on 04/09/20, patient denies any recent travel. No known Covid positive contacts or Covid related symptoms. Does not wear mask at all times. Educated patient to follow up with surgeon's office regarding Covid testing. Educated on importance of self quarantining, social distancing and wearing mask in public both for the patient and household contacts. Did educated patient that she does need to wear mask or not go out in public from time of Covid test until surgery Right TKA 06/12/19= Pt done under GA (difficult placement of SAB x 2 attempts- patient able to move legs after second placement of spinal). GA done with LMA #4. Teaching & Discussion Pre-Anesthesia Teaching/Discussion Notes: Instructed NPO after midnight before surgery,except medications with 15 cc of water. Medication instructions provided according to the PAT guidelines. History Surgery Operation Date: 05/02/20 08:55 Proposed Procedures p Right Total Shoulder Arthroplasty, Open Distal Clavical Excision - David Dinh MD Height/Weight Height: 4 ft 11 in Weight: 87.8 kg Allergies Allergy/AdvReac Type Severity Reaction Status Date / Time mold Allergy Unknown MOLD TREE Verified 04/04/20 09:49 POLLEN-ASTHMA SYMPTOMS adhesive tape AdvReac Unknown SKIN Verified 04/04/20 09:49 IRRITATION -PAPER TAPE OK garlic AdvReac Unknown NAUSEA AND Verified 04/04/20 09:49 VOMITNG Penicillins AdvReac Unknown COLITIS Verified 04/04/20 09:49 INTERNAL BLEEDING tomato AdvReac Unknown TOMATO Verified 04/04/20 09:49 SAUCE-GERD steri strips Allergy Redness of Uncoded 04/09/20 08:53 Skin and inflammation/pus surgical damien Allergy Redness of Uncoded 04/09/20 08:53 Skin and inflammation/pus Medications Home Medications Medication Instructions Recorded Confirmed Last Taken Restasis 1 drp OPHTHALMIC (EYE) Q12H 05/15/19 04/04/20 06/12/19 05:30 albuterol sulfate 2 puff INHALATION Q6H PRN 05/15/19 04/04/20 Unknown budesonide-formoterol [Symbicort] 2 puff INHALATION Q12H 05/15/19 04/04/20 06/12/19 05:30 montelukast [Singulair] 10 mg PO PM 05/15/19 04/04/20 06/11/19 21:00 omeprazole 40 mg PO BID 05/15/19 04/04/20 06/11/19 23:00 simvastatin 20 mg PO HS 05/15/19 04/04/20 06/11/19 21:00 Probiotic 1 dose PO QAM 04/04/20 04/04/20 Unknown aspirin [Aspir-81] 81 mg PO QAM 04/04/20 04/04/20 Unknown diphenhydramine-acetaminophen 1 tab PO HS PRN 04/04/20 04/04/20 Unknown [Tylenol PM Extra Strength] levothyroxine 100 mcg PO QAM 04/04/20 04/04/20 Unknown tramadol 50 mg PO Q8H PRN 04/04/20 04/04/20 Unknown Past Medical History Medical History (Updated 04/09/20 @ 08:55 by [place]re [place] PA-C) Asthma uses PRN inh 2-3 x per month on average - well controlled and stable GERD (gastroesophageal reflux disease) controlled and stable Hiatal hernia Hyperglycemia Borderline DM per patient- no meds needed Hyperlipidemia Hypothyroidism Migraine hx Sleep apnea does not tolerate CPAP Exercise / Class Metabolic Activity III < 4 Walking/Shop/Light housework (one flight stairs - mild SOB, no chest pain ) Past Family History Family History Mother , CHF Family history of diabetes mellitus Father TIA (transient ischemic attack) Other No family history of adverse response to anesthesia Denies family history of Myocardial infarction Past Surgical History Surgical History Exploratory laparotomy scar MULTIPLE RELATED TO ENDOMETRIOSIS H/O sinus surgery MULTIPLE History of appendectomy History of arthroscopy R/L KNEE- MENISCUS REPAIR History of carpal tunnel release R/L History of colonoscopy History of esophagogastroduodenoscopy (EGD) History of hand surgery LEFT History of hysterectomy TOTAL History of left shoulder replacement History of right knee joint replacement 06/12/2019 [facility] History of tonsillectomy Past Anesthesia History No Hx of Anesthesia Complications (with exception to nerve blocks- pt states she was told she thrashed with previous thumb block (no known issues with left shoulder surgery); patient states it takes a great deal of anesthesia to put her to sleep ) and No Family Hx of Anesthesia Complications History of PONV No Hx of PONV and No Hx of Motion Sickness Social History Smoking Status: Never smoker Do You Dip or Chew Tobacco: No Hx Alcohol Use: No Hx Substance Use: No Review of Systems Occ palpitations with anxiety Due to asthma- chronic mild KUMAR Patient denies chest pain, shortness of breath, cough, wheezing. No hx of seizures, stroke, AL. No hx of blood clots or blood transfusions Physical Exam Vital Signs VITALS BP 136/73 P 73 TEMP 97.6 SP02 94% RESP 16 Constitutional no acute distress ENMT Mouth: no TMJ clicking Thyromental Distance: < 3.5 Finger Breadths (3.0) Mallampati Class: I Partial upper denture Missing bottom molars Neck + limited neck extension (minimal ) Respiratory normal respiratory effort; no respiratory distress Auscultation: lungs clear to auscultation bilaterally; no wheezes Cardiovascular Rate/Rhythm: regular rate and regular rhythm Heart Sounds: no murmur Vessels: no carotid bruit Musculoskeletal Spine: no pain with cervical ROM Neurologic moves all extremities Psychiatric Orientation: alert Testing Laboratory Results 04/09/20 09:12 04/09/20 09:12 PT 10.6 Seconds (9.0-12.0) 04/09/20 09:12 INR 1.0 (0.9-1.1) 04/09/20 09:12 APTT 30.6 Seconds (21.0-31.0) 04/09/20 09:12 Hemoglobin A1c 5.4 % (4.5-5.6) 04/09/20 09:12 Urine Color Yellow 04/09/20 09:12 Urine Appearance Clear (Clear) 04/09/20 09:12 Urine pH 6.5 (4.5-7.5) 04/09/20 09:12 Ur Specific [place] 1.004 (1.000-1.030) 04/09/20 09:12 Urine Protein Negative (Negative) 04/09/20 09:12 Urine Glucose (UA) Negative (Negative) 04/09/20 09:12 Urine Ketones Negative (Negative) 04/09/20 09:12 Urine Nitrite Negative (Negative) 04/09/20 09:12 Ur Leukocyte Esterase Negative (Negative) 04/09/20 09:12 Blood Type A Positive 04/09/20 09:12 Antibody Screen NEGATIVE 04/09/20 09:12 Electrocardiogram Date: 05/23/19 Findings: + NSR @ (78) Chest X-Ray Date: 05/23/19 Findings: + NAD
[2020-04-09 10:53] LABS: Basophils # (auto) 0.01 K/uL (0-0.2); Basophils % (auto) 0.1 %; Eosinophils # (auto) 0.14 K/uL (0-0.5); Eosinophils % (auto) 1.6 %; Hematocrit (blood only) 44.3 % (37-47); Hemoglobin 14.7 g/dL (12.0-16.0); Immature Granulocytes # (auto) 0.01 K/uL (0.00-0.02); Immature Granulocytes % (auto) 0.1 %; Lymphocytes # (auto) 1.37 K/uL (1.2-3.4); Lymphocytes % (auto) 15.7 %; Mean Corpuscular Hemoglobin 30.4 pg (25-34); Mean Corpuscular Hgb Conc 33.2 g/dL (32-36); Mean Corpuscular Volume 91.7 fL (80-100); Mean Platelet Volume 10.6 fL (7.4-10.4); Monocytes # (auto) 0.96 K/uL (0.11-0.59); Neutrophils # (auto) 6.22 K/uL (1.4-6.5); Neutrophils % (auto) 71.5 %; Platelet Count 342 K/uL (130-400); RDW Standard Deviation 43.5 fL (36.4-46.3); Red Blood Count 4.83 M/uL (4.2-5.4); White Blood Count 8.71 K/uL (4.8-10.8)
[2020-04-09 10:54] LABS: Appearance Urine Clear (Clear); Bilirubin Urine Negative (Negative); Blood Urine Negative (Negative); Color Urine Yellow; Glucose Urine UA Negative (Negative); Ketones Urine Negative (Negative); Leukocyte Esterase Urine Negative (Negative); Nitrite Urine Negative (Negative); Protein Urine Negative (Negative); Specific Gravity Urine 1.004 (1.000-1.030); Urobilinogen Urine Negative (Negative); pH Urine 6.5 (4.5-7.5)
[2020-04-09 11:04] LABS: Partial Thromboplastin Ratio 1.1; Partial Thromboplastin Time 30.6 Seconds (21.0-31.0); Prothrombin Time 10.6 Seconds (9.0-12.0)
[2020-04-09 11:05] LABS: Albumin Level 4.1 gm/dl (3.4-5.0); BUN Creatinine Ratio 21.6 (10-20); Creatinine Clr Calc Pharmacy 69.4 ml/min; Est GFR (African American) 90.9; Est GFR (Non-African American) 78.5; Potassium 4.8 mmol/L (3.5-5.1)
[2020-04-09 11:18] LABS: Estimated Average Glucose 108 mg/dl; Hemoglobin A1C 5.4 % (4.5-5.6)
--- NOTE | 2020-05-01 19:37 | History and Physical Report ---
DATE OF ADMISSION: 05/02/2020 CHIEF COMPLAINT: Chronic right shoulder pain. HISTORY OF PRESENT ILLNESS: This is a 64-year-old female patient of Dr. Hearn, complaining of chronic right shoulder pain and dysfunction, longstanding, now progressively getting worse. The patient has failed conservative treatment and has been diagnosed with end-stage osteoarthritis per clinical and radiographic exams of her glenohumeral joint and AC joint. The patient wished to proceed with a right total shoulder arthroplasty and distal clavicle excision. PAST MEDICAL HISTORY: Asthma, hypothyroidism, osteoarthritis, neck problems, acid reflux, obesity. SOCIAL HISTORY: Nonsmoker, nondrinker. She does report problems with waking up outside of anesthesia with some combativeness. FAMILY HISTORY: Noncontributory. REVIEW OF SYSTEMS: Chronic right shoulder pain and decreased function. Otherwise, denies any shortness of breath, chest pain, nausea, vomiting or any other joint complaints. MEDICATIONS: 1. Singulair daily. 2. Omeprazole 40 mg twice daily. 3. Symbicort 160 mcg actuation 2 puffs twice daily. 4. Sumatriptan 50 mg 2 times daily with migraines. 5. Simvastatin 20 mg daily. 6. Restasis 0.05% eyedrops 1 drop in each eye every 12 hours as needed. 7. Levothyroxine 88 mcg daily. 8. Ventolin HFA 90 mcg actuation 2 puffs as needed. 9. Clindamycin 300 mg every 6 hours as needed. 10. Ipratropium 0.5 mg albuterol nebulizer as needed. 11. Triamcinolone 55 mcg nasal spray 2 sprays twice daily. 12. Cetirizine 10 mg daily. 13. Ipratropium albuterol 3 mL nebulizer as needed 4 times daily. 14. Meloxicam 7.5 mg. 15. Ultram 50 mg. ALLERGIES: PENICILLIN AND ADHESIVE PERRI, STERI-STRIPS, THEY ALL CAUSE PUS AND REDNESS. PHYSICAL EXAMINATION: GENERAL: Well-developed, well-nourished 64-year-old female in no acute distress. She is alert and oriented x3 and pleasant. HEENT: Normocephalic, atraumatic. Extraocular motions are intact. Pupils are equal and reactive to light. HEART: Regular rate and rhythm, no murmurs. LUNGS: Clear. ABDOMEN: Soft, nontender, bowel sounds present. EXTREMITIES: Right upper extremity active range of motion 0-90, passive range of motion 0-140, crepitation and pain with all motion, 4/5 strength with pain. Neurologically and neurovascularly intact in her right upper extremity. DIAGNOSES: Right shoulder end-stage osteoarthritis and acromioclavicular arthritis, hypercholesterolemia, acid reflux, history of migraine, restless leg syndrome, asthma, hypothyroidism, osteoarthritis, neck problems, and obesity. PLAN: The patient was advised of her diagnosis. Indications, risks, benefits, postop course have all been reviewed. The patient wished to proceed with a right total shoulder arthroplasty and open distal clavicle excision. Necessary consent forms, preoperative testing and clearances will be obtained.
[~2020-05-02 09:35] MED LIST changes: +DEXAMETHASONE SOD INJ 4 MG/ML VIAL ONE; +LR 15ML/HR IV SCH; -LR 500ML BOLUS, THEN 15ML/HR IV SCH; +MIDAZOLAM HCL 1 MG/ML 2ML VIAL ONE; +ROPIVACAINE 0.5% 5 MG/ML 30 ML VIAL ONE; -ROPIVACAINE 0.5% HCL/PF 150 MG, BUPIVACAINE 0.5% MPF 30 ML, EPINEPHrine 30MG/30ML (OR U... INFIL SCH; -TRANEXAMIC ACID 1,000 MG **IV Intra-op IV SCH; -TRANEXAMIC ACID 1,000 MG **IV Pre-op IV SCH; +fentaNYL citrate 100 MCG/2 ML VIAL ONE
[2020-05-02] MEDS ORDERED: EPINEPHrine HCL INJ 1 MG/ML 30ML ONE (09:43)
[2020-05-02] MEDS ORDERED: BACITRACIN INJ 50,000 UNIT VIAL ONE (09:43)
[2020-05-02] MEDS ORDERED: HYDROmorphone INJ 2 MG/ML SYR/VIAL IV PRN (10:36)
[2020-05-02] MEDS ORDERED: METOCLOPRAMIDE HCL INJ 5 MG/ML 2 ML VIAL IV PRN (10:36)
[2020-05-02] MEDS ORDERED: ePHEDrine sulfate 50 MG/ML AMP IV PRN (10:36)
[2020-05-02] MEDS ORDERED: PROMETHAZINE HCL 12.5 MG in SODIUM CHLORIDE 0.9% 50 ML IV PRN (10:36)
[2020-05-02] MEDS ORDERED: ATROPINE SULFATE 0.1 MG/ML 10ML SYR IV PRN (10:36)
[2020-05-02] MEDS ORDERED: ONDANSETRON INJ 2 MG/ML 2 ML VIAL IV PRN ×2 (10:36→16:21)
[2020-05-02] MEDS ORDERED: LIDOCAINE HCL 2% MPF (LOCAL) 5 ML VIAL INFIL ONE (10:46)
--- NOTE | 2020-05-02 10:51 | History & Physical Bridge Note ---
Date of Service May 02, 2020 History & Physical Bridge Note I have examined the patient, reviewed the History & Physical and in the interval since the performance of the History & Physical I have noted the following changes of clinical significance: no changes noted
[2020-05-02] MEDS ORDERED: fentaNYL citrate 100 MCG/2 ML VIAL ONE (12:30)
--- NOTE | 2020-05-02 14:35 | Post Operative Brief Note ---
Immediate Post Op Note v1 Date of Surgery May 02, 2020 Pre & Post Diagnosis Operation Date: 05/02/20 12:40 Pre-Op Diagnosis: Right Shoulder Osteoarthritis glenohumeral and AC joint obesity BMI 38.5 Post-Op Diagnosis: Right Shoulder Osteoarthritis glenohumeral and AC joint obesity biceps tendinopathy with tenosynovitis BMI 38.5 I identified the patient and participated in the time-out.: Yes Procedure Operation Date: 05/02/20 12:40 Actual Procedures p Right Total Shoulder Arthroplasty, Open Distal Clavical Excision(Right) biceps tenodesis- David Dinh MD Surgeon David Dinh MD Line Service Attendant ARNULFO Au Estimated Blood Loss 100 Findings Consistent with Post-Op Diagnosis Specimens Humeral head and distal clavicle Anesthesia Type General Regional Complications none Disposition Accompanied Patient To Recovery: No Disposition: Recovery Room Overlapping Procedure I was immediately available: during the entire case.
[2020-05-02] MEDS ORDERED: GLYCOPYRROLATE 0.2 MG/ML VIAL ONE (14:40)
[2020-05-02] MEDS ORDERED: PROPOFOL IV EMULSION 10 MG/ML 20 ML VIAL IV ONE (14:40)
[2020-05-02] MEDS ORDERED: ROCURONIUM BROMIDE 10 MG/ML 5 ML VIAL IV ONE (14:40)
[2020-05-02] MEDS ORDERED: NEOSTIGMINE METHYLSULFATE 5 MG/5 ML SYR ONE (14:40)
[2020-05-02] MEDS ORDERED: ONDANSETRON INJ 2 MG/ML 2 ML VIAL ONE (14:40)
[2020-05-02] MEDS ORDERED: LIDOCAINE HCL 2% 2 ML VIAL/AMP(20MG/ML) INFIL ONE (14:40)
[2020-05-02] MEDS: fentaNYL citrate 100 MCG/2 ML VIAL IV PRN ×2 (14:59→15:18)
--- NOTE | 2020-05-02 15:28 | XRay Report ---
XR shoulder RT min 2V routine HISTORY: 64 years-old Female Post shoulder surgery right shoulder arthroplasty COMPARISON: None TECHNIQUE: 2 views the right shoulder FINDINGS: Right shoulder arthroplasty demonstrates satisfactory alignment. Resection of the distal right clavic le. No acute fracture or malalignment. Expected postsurgical soft tissue swelling and deep tissue air with surgical drainage catheter. No unexpected retained foreign body. IMPRESSION: 1. Satisfactory alignment of the right shoulder total joint arthroplasty. 2. Status post resection of the distal right clavicle. ACT 112: Negative or not required by law. The above report was generated using voice recognition software. It may contain grammatical, syntax o r spelling errors. Electronically signed by: Carl Tran M.D. 05/02/2020 3:26 PM
--- NOTE | 2020-05-02 15:41 | Operative Report ---
Post Operative Report Pre & Post Diagnosis Operation Date: 05/02/20 12:40 Pre-Op Diagnosis: Right Shoulder Osteoarthritis, obesity BMI 38.5 Post-Op Diagnosis: Right Shoulder Osteoarthritis, glenohumeral and AC joint, biceps tenosynovitis biceps tendinopathy, obesity BMI 38.5 I identified the patient and participated in the time-out.: Yes Procedure Operation Date: 05/02/20 12:40 Actual Procedures p Right Total Shoulder Arthroplasty, Open Distal Clavical Excision(Right), biceps tenodesis with tenosynovectomy and removal debris biceps tendon sheath- David Dinh MD Surgeon David Dinh MD Link Trainer Operator ARNULFO Au Estimated Blood Loss 100 Findings Consistent with Post-Op Diagnosis Specimens Humeral head and distal clavicle Drains 2 Hemovac Anesthesia Type General Regional Complications none Disposition Accompanied Patient To Recovery: No Disposition: Recovery Room Indications 64-year-old female with chronic progressive osteoarthritis in her right shoulder. Patient has end-stage glenohumeral osteoarthritis [id number] and AC joint osteoarthritis as well which is symptomatic. Patient had prior left total shoulder replacement with distal clavicle excision and did well with that procedure wants proceed with similar procedure on her right shoulder. Description of Procedure The patient was taken to the operating room and anesthetized under a general and regional block anesthesia. A towel roll was placed under the medial border of the scapula of the right shoulder. The patient's head was placed on a foam headrest and protective eyewear was placed and the extremities were well padded. The arm was draped free in order to manipulate the shoulder as necessary. The shoulder exam demonstrated 130 degrees forward elevation 30 degrees external rotation 70 degrees abduction [id number] crepitation and obese shoulder and obese arm. The shoulder was sterilely prepped and draped in the usual sterile fashion. An anterior deltopectoral approach was performed. A longitudinal incision was made in the interval. The skin was incised sharply and subcutaneous tissues dissected down to the fascia. The cephalic vein was identified and retracted laterally with the deltoid. Any crossing veins were tied off with silk ties and divided. The clavipectoral fascia was divided at the lateral margin of the conjoined tendon and divided up to the level of the coracoacromial ligament which was preserved. The upper 1 cm of the pectoralis was released for inferior exposure. The biceps tendon findings demonstrated chronic tenosynovitis around the biceps tendon with articular debris from the joint within the biceps tendon sheath. A tenosynovectomy was performed and the debris was resected.. The rotator cuff tendon findings demonstrated intact rotator cuff. The circumflex vessels were identified and tied off with silk ties and divided laterally. The fibers and subscapularis were split longitudinally at the level of the circumflex vessels down to the capsule and then reflected off the inferior capsule using a Kitner elevator. The axillary nerve was identified with a tug test and protected with a blunt Rosie retractor. The rotator interval was opened up and extended down to the glenoid. The biceps tendon was tenodesed to the pectoralis tendon with [id number]-[id number] #2 FiberWire sutures in the proximal biceps was resected. The subscapularis tendon was taken down with a trans-tendinous incision leaving a cuff of tissue for repair on the lesser tuberosity. The incision was carried down to the tendon and the capsule and a #1 Vicryl suture was placed into the free end of the subscapularis tendon. The capsule was subperiosteally dissected off the inferior neck of the humerus exposing the humeral osteophytes which demonstrated very large inferior humeral osteophytes extending from anterior to posterior. Humeral head was completely down to the bone with some bone wear and flattening. The osteophytes were excised with an artist chisel and a rongeur. The capsular release along the inferior neck of the humerus was completed. The humerus was then retracted posterior to the glenoid with a Fukuda retractor. The remainder of the biceps tendon and labrum was resected. The glenoid findings demonstrated flattening out of the curve of the glenoid with completely exposed eburnated bone and chronic degeneration of the labrum. Patient had a large thickened labrum circumferentially. The biceps tendon and labral tissue was all resected from within the joint.. I did an anterior inferior and posterior inferior release with electrocautery on bone and a Forrest elevator with the axillary nerve continuing to be protected with the blunt Hohmann retractor inferiorly. When the releases were completed and the humeral head was exposed with some extension and external rotation and in anatomic head cut was made using the oscillating saw. The Tornier ascend flex total shoulder arthroplasty was used including the Cortiloc glenoid component. Attention was first taken to preparation of the humeral shaft. A centralizing awl was used followed by broaches up to the appropriate templated size. The trial broach was left in place and a cut protector was placed. The humerus was then retracted posterior to the glenoid using a Bankart retractor anteriorly and blunt Rosie and posterior Tornier glenoid retractor. A central drill hole was made into the glenoid. The glenoid was sized for a size small 40 radius Cortiloc component. The glenoid was reamed and the central drill widened and the guide for the 3 peripheral peg holes was placed in the peg holes were drilled and a trial component was placed with a tight fit. The trial was removed and the glenoid was irrigated with pulsatile lavage antibiotic solution and the drill holes were dried and packed with epinephrine-soaked tampons for hemostasis. The Palacos G cement was vacuum mixed. The final component was cemented into position and held in position with pressure until the cement cured. A humeral head trial was placed. A trial reduction was performed and the shoulder was stable. The trial was removed and the humerus and canal were irrigated with antibiotic solution with bacitracin. 3 drill holes were made into the hard bone in the bicipital groove lateral to the lesser tuberosity and 3 #5 FiberWire transosseous sutures were placed for repair of the subscapularis. After further irrigation of the canal and the final components were assembled. The final components were the 4B standard humeral stem assembled to the 48 x 18 low offset humeral head. The implant was then impacted into the humerus with a tight press-fit. The humerus was reduced to the glenoid and stability verified. The subscapularis was repaired with the #5 FiberWire sutures in a Dimas-Andrés suture technique and lateral row fixation with qujhou-lj-ysakl #2 FiberWire in the soft tissue. The rotator interval was closed and maximal external rotation. The pectoralis was then closed with [id number] #2 FiberWire suture. The sutures were passed through the biceps tendon as well to reinforce the biceps tenodesis. The arm was taken through range of motion and the forward elevation was 140 degrees abduction 100 degrees and external rotation to 60 degrees without any tension on repair. A transverse incision was then made over the distal clavicle. A 3 cm incision was made. The skin incised sharply and a deep layer of fat was divided down to the fascia. Subcutaneous flaps were elevated. Transverse incision was made through the periosteum over the distal clavicle and it was reflected off the clavicle. There was a calcified meniscus material and degeneration of the AC joint. The calcifications in the AC joint were all resected as well as the meniscus scarred tissue. 1 cm distal clavicle was resected using oscillating saw. After copious irrigation the deltoid trapezius fascia was closed with interrupted scvuxt-cd-nampt #2 FiberWire sutures with a secure repair. The subcutaneous tissues were closed into 2-0 Vicryl suture and the skin was closed with interrupted 4-0 nylon vertical mattress sutures. The deltopectoral wound was then irrigated and 2 Hemovac drains were placed. The deltopectoral interval was closed with bnjjrf-cy-azqoh #1 Vicryl sutures. The subcutaneous tissues were closed with interrupted 2-0 Vicryl and the skin was closed with damien and a sterile dressing was applied. The patient tolerated the procedure well. ARNULFO Au my physician pastry assistant, assisted in soft tissue retraction instrument management suture management and assisted in the subcutaneous and skin closure and will participate in the postoperative care the patient. I attest to the content of the Intraoperative Record and any orders documented therein. Any exceptions are noted below.
[2020-05-02] MEDS ORDERED: bisacodyL 10 MG SUPP PR PRN (16:21)
[2020-05-02] MEDS ORDERED: NALOXONE HCL 0.4 MG/1 ML VIAL/CARP IV PRN (16:21)
[2020-05-02] MEDS ORDERED: ALBUTEROL HFA 8 GM INHALER INH PRN (16:21)
[2020-05-02] MEDS ORDERED: NON-FORMULARY MEDICATION (Diphenhydramine-Acetaminophen [Tylenol Pm Extra Strength] 1 TAB) PO PRN (16:21)
[2020-05-02] MEDS ORDERED: VANCOMYCIN CONSULT ACTIVE PRN (16:21)
[2020-05-02] MEDS ORDERED: MAGNESIUM HYDROXIDE SUSP 30 ML UDC PO PRN (16:21)
[2020-05-02] MEDS ORDERED: diphenhydrAMINE Capsule 25 MG CAP PO PRN (16:21)
--- NOTE | 2020-05-02 17:38 | Hospitalist Consultation ---
Date of Consultation May 02, 2020 Assessment & Plan (1) DJD of left shoulder: * s/p RIGHT total shoulder arthroplasty with Dr. Dinh. EBL 100ml. Pre- op h/h 14.7/44.3 * PT/OT/pain management/DVT prophylaxis per primary service * Vancomycin per primary service x 1 * IVF NSS @ 100cc/hr * Monitor labs in AM (2) Asthma: * Stable -- no wheezing on exam * Discontinued Breo as ordered by primary service and ordered Symbicort 2 puffs BID as she takes at home * Continue ventolin prn * 94% on 1L currently -- continue to wean post-operatively (3) Allergic rhinitis: * Stable -- continue home nasacort (she has in her purse and will send down to pharmacy to be relabeled) * Continue cetirizine 10mg in the morning and montelukast 10mg at night (4) Hypothyroidism: * Chronic. Continue home levothyroxine 100mcg daily (5) Hyperlipidemia: * Chronic. Familial. Continue home simvastatin 20mg HS (6) GERD (gastroesophageal reflux disease): * Chronic. Continue protonix instead of omeprazole while inpatient --> Protonix 40mg BID (7) Obesity: * BMI 38.5 -- encourage diet/weight loss (8) Sleep apnea: * Records indicated patient "unable to tolerate CPAP" however patient states she uses this nightly and brought hers in from home * Continue CPAP HS (9) DVT prophylaxis: * SCDs * Chemoprophylaxis per primary service -- none ordered Thank you for allowing medicine service to participate in the care of Mrs. Shaikh. Medicine will follow along. Supervising Physician Co-Signing Physician Notes PA Supervision Note: I personally saw and examined the patient. I verified all adams points and agree with ARNULFO Morales with the following exceptions and/or additions: Pt doing wlel post op, no N/V, no CP or SOB over her baseline asthma she states. Pain fairly well controlled History and ROS reviewed VSS Obese, NAD, AAOx3 RRR no mgr CTAB no wcr Abd +BS soft NT ND, obses RUE in sling, rt hand NVI 64 yo female here with Right shoulder TSA, history otherwise as above Continue plan as outlined above, will follow History of Present Illness Reason for Consultation: medical management Requesting Physician: Dr Dinh Attending Physician: David Dinh MD History of Present Illness 64 year old female with PMHx significant for asthma, allergies, hypothyroidism, reflux, HLD, EDA, osteoarthritis presented for RIGHT total shoulder arthroplasty with Dr. Dinh. Patient evaluated post-operatively. She was sitting up in bed eating roast beef and carrots without difficulty although she did request to be boosted in bed to prevent issues with swallowing. Myself and nurse Pam boosted in bed for more comfort and requested roast beef be heated up. Pain controlled currently. Improvement of numbness/tingling since coming back to the floor. History of sleep apnea and she states she brought her CPAP with her. Not usually on oxygen. Had her right shoulder done in the past with Dr Dinh and aware of typical course. She would like to make sure she has pain medications ordered so that the pain doesn't creep up on her. She has a history of bronchitis and only utilitzes nebulizers during that time, otherwise she utilizes her rescue inhaler 2-3x/month and is maintained on a combination of symbicort BID, nasacort, montelukast and singular. Denies fever, chills, chest pain, shortness of breath, nausea, vomiting, diarrhea or constipation at this time. No other concerns at this time. Allergies Allergy/AdvReac Type Severity Reaction Status Date / Time mold Allergy Intermediate MOLD TREE Verified 05/02/20 09:57 POLLEN-ASTHMA SYMPTOMS adhesive tape AdvReac Severe SKIN Verified 05/02/20 09:57 IRRITATION -PAPER TAPE OK Penicillins AdvReac Severe COLITIS Verified 05/02/20 09:57 INTERNAL BLEEDING garlic AdvReac Intermediate NAUSEA AND Verified 05/02/20 09:57 VOMITNG lettuce AdvReac Intermediate Verified 05/02/20 09:58 tomato AdvReac Intermediate TOMATO Verified 05/02/20 09:57 SAUCE-GERD watermelon AdvReac Intermediate Verified 05/02/20 09:58 steri strips Allergy Severe Redness of Uncoded 05/02/20 09:57 Skin and inflammation/pus surgical damien Allergy Severe Redness of Uncoded 05/02/20 09:57 Skin and inflammation/pus Home Medications Home Medications Medication Instructions Recorded Confirmed Type Restasis 1 drp OPHTHALMIC (EYE) Q12H 05/15/19 05/02/20 History albuterol sulfate 2 puff INHALATION Q6H PRN 05/15/19 05/02/20 History budesonide-formoterol [Symbicort] 2 puff INHALATION Q12H 05/15/19 05/02/20 History montelukast [Singulair] 10 mg PO PM 05/15/19 05/02/20 History omeprazole 40 mg PO BID 05/15/19 05/02/20 History simvastatin 20 mg PO HS 05/15/19 05/02/20 History Probiotic 1 dose PO QAM 04/04/20 05/02/20 History aspirin [Aspir-81] 81 mg PO QAM 04/04/20 05/02/20 History diphenhydramine-acetaminophen 1 tab PO HS PRN 04/04/20 05/02/20 History [Tylenol PM Extra Strength] levothyroxine 100 mcg PO QAM 04/04/20 05/02/20 History tramadol 50 mg PO Q8H PRN 04/04/20 05/02/20 History Patient History Medical History (Updated 05/03/20 @ 12:49 by Brittaney Morales PA-C) Asthma uses PRN inh 2-3 x per month on average - well controlled and stable GERD (gastroesophageal reflux disease) controlled and stable Hiatal hernia Hyperglycemia Borderline DM per patient- no meds needed Hyperlipidemia Hypothyroidism Migraine hx Sleep apnea Surgical History Exploratory laparotomy scar MULTIPLE RELATED TO ENDOMETRIOSIS H/O sinus surgery MULTIPLE History of appendectomy History of arthroscopy R/L KNEE- MENISCUS REPAIR History of carpal tunnel release R/L History of colonoscopy History of esophagogastroduodenoscopy (EGD) History of hand surgery LEFT History of hysterectomy TOTAL History of left shoulder replacement History of right knee joint replacement 06/12/2019 [facility] History of tonsillectomy Family History Mother , CHF Family history of diabetes mellitus Father TIA (transient ischemic attack) Other No family history of adverse response to anesthesia Denies family history of Myocardial infarction Social History Smoking Status: Never smoker Second Hand Exposure: No; Do You Dip or Chew Tobacco: No; Hx Alcohol Use: No Hx Substance Use: No Preferred Language: Japanese Communication Ability: Effective Sr. Strategic Sourcing Manager Required: No Beliefs That Will Affect Care: None marital status: / Current Living Situation: Alone Feels Safe at Home: Yes Safety Concerns: Feels Safe At This Time Assistive Devices: Denture - Upper, Denture - Lower and Glasses Review of Systems Review of Systems: All systems reviewed & are unremarkable except as noted in HPI & below Physical Exam Constitutional: WD/WN, vitals as above no acute distress Eyes: + anicteric sclerae and PERRL ENMT: Ears: no hearing impairment Nose: no external nose abnormality Neck: trachea midline, no thyromegaly Respiratory: normal respiratory effort, lungs clear to auscultation Auscultation: + diminished lung sounds Cardiovascular: RRR, no murmur, no edema Gastrointestinal (Abdomen): normal bowel sounds, soft, nontender, no hepatosplenomegaly Musculoskeletal: sling to RIGHT arm with drain functioning, bloody drainage noted NVI socket puller strength 5/5 bilaterally 2+ radial pulses bilaterally Skin: warm, dry Neurologic: PERRL, EOMI, accommodation nl, no face palsy, no dysarthria Psychiatric: A+Ox3, euthymic affect Lymphatic: no cervical or axillary lymphadenopathy Results & Data Results & Data ([facility]) Vital Signs (Past 12 Hours) Vital Signs Temp Pulse Pulse Pulse Resp BP Pulse Ox 05/02/20 17:04 36.9 C 87 16 90/60 L 95 05/02/20 16:37 36.7 C 89 18 110/74 95 05/02/20 16:05 36.6 C 87 19 110/61 94 05/02/20 15:45 84 17 121/67 93 05/02/20 15:30 87 18 109/68 95 05/02/20 15:20 36.3 C L 86 18 118/88 95 05/02/20 15:10 86 20 108/75 93 05/02/20 15:00 84 17 131/75 92 05/02/20 14:50 86 18 139/89 96 05/02/20 14:40 86 17 144/76 H 97 05/02/20 14:34 36.2 C L 84 16 128/79 97 05/02/20 10:08 37.0 C 92 H 22 148/85 H 94 Diagnostic Findings XR Shoulder RT min 2V IMPRESSION: 1. Satisfactory alignment of the right shoulder total joint arthroplasty. 2. Status post resection of the distal right clavicle. PG Care Time/CCT Total # of Minutes Spent Total Time Spent with Patient: Total time spent is greater than 50% in coordination of care (as documented) at patient's floor/unit and/or counseling patient: Coding Level of Care Code 15047 Inpt Consult Level 3 Diagnoses DJD of left shoulder M19.012 Asthma J45.909 Allergic rhinitis J30.9 Hypothyroidism E03.9 Hyperlipidemia E78.5 GERD (gastroesophageal reflux disease) K21.9 Obesity E66.9 Sleep apnea G47.30 DVT prophylaxis Z29.9
--- NOTE | 2020-05-02 18:06 | Anesthesiology Progress Note ---
Date of Service May 02, 2020 Anesthesia Post Procedure Vital Signs Vital Signs: Temp Pulse Pulse Pulse Resp BP Pulse Ox 05/02/20 17:04 36.9 C 87 16 90/60 L 95 05/02/20 16:37 36.7 C 89 18 110/74 95 05/02/20 16:05 36.6 C 87 19 110/61 94 05/02/20 15:45 84 17 121/67 93 05/02/20 15:30 87 18 109/68 95 05/02/20 15:20 36.3 C L 86 18 118/88 95 05/02/20 15:10 86 20 108/75 93 05/02/20 15:00 84 17 131/75 92 05/02/20 14:50 86 18 139/89 96 05/02/20 14:40 86 17 144/76 H 97 05/02/20 14:34 36.2 C L 84 16 128/79 97 05/02/20 10:08 37.0 C 92 H 22 148/85 H 94 Pain Intensity Right Shoulder: Pain Intensity: 3 Transfer of Care Handoff Completed per policy Notes Mental Status: alert / awake / arousable and participated in evaluation Patient Amnestic to Procedure: Yes Nausea / Vomiting: adequately controlled Pain: adequately controlled Airway Patency, RR, SpO2: stable & adequate BP & HR: stable & adequate Hydration State: stable & adequate Anesthetic Complications: no major complications apparent
[2020-05-02] MEDS: oxyCODONE HCL IR 5 MG TAB (IMMEDIATE RELEASE) PO PRN (19:44)
[2020-05-02] MEDS: SODIUM CHLORIDE 0.9% 1000ML 1,000 ML IV SCH (19:44)
[2020-05-02] MEDS: DOCUSATE SODIUM 100 MG CAP PO SCH (21:02)
[2020-05-02] MEDS: PANTOprazole 40 MG TAB PO SCH (21:02)
[2020-05-02] MEDS: SENNA 8.6 MG TAB PO SCH (21:03)
[2020-05-02] MEDS: ACETAMINOPHEN 500 MG TAB PO SCH (21:03)
[2020-05-02] MEDS: MONTELUKAST SODIUM 10 MG TABLET PO SCH (21:03)
[2020-05-02] MEDS: SIMVASTATIN 20 MG TAB PO SCH (21:03)
[2020-05-02] MEDS: BUDESONIDE/FORMOTEROL FUMARATE 160/4.5 60 PUFFS/INHALER INH SCH (21:39)
[2020-05-02] MEDS ORDERED: VANCOMYCIN HCL 1,250 MG in SODIUM CHLORIDE 0.9% 250 ML IV SCH (22:00)
[2020-05-03] MEDS: oxyCODONE HCL IR 5 MG TAB (IMMEDIATE RELEASE) PO PRN ×6 (00:18→23:46)
[2020-05-03] MEDS: LEVOTHYROXINE SODIUM 100 MCG TABLET PO SCH (04:50)
[2020-05-03] MEDS: ACETAMINOPHEN 500 MG TAB PO SCH ×3 (04:52→21:17)
[2020-05-03] MEDS: SODIUM CHLORIDE 0.9% 1000ML 1,000 ML IV SCH (05:23)
[2020-05-03] MEDS: cycloSPORINE (RESTASIS) OP SCH ×2 (05:47→21:14)
[2020-05-03] MEDS: TRIAMCINOLONE ACET NASAL SPRAY 10.8ML BTL NAE SCH (06:04)
[2020-05-03] MEDS: BUDESONIDE/FORMOTEROL FUMARATE 160/4.5 60 PUFFS/INHALER INH SCH ×2 (06:04→21:16)
[2020-05-03 06:33] LABS: Basophils # (auto) 0.01 K/uL (0-0.2); Hematocrit (blood only) 36.2 % (37-47); Hemoglobin 11.6 g/dL (12.0-16.0); Immature Granulocytes # (auto) 0.04 K/uL (0.00-0.02); Immature Granulocytes % (auto) 0.2 %; Lymphocytes # (auto) 0.96 K/uL (1.2-3.4); Lymphocytes % (auto) 4.7 %; Mean Corpuscular Hemoglobin 29.6 pg (25-34); Mean Corpuscular Volume 92.3 fL (80-100); Monocytes # (auto) 1.72 K/uL (0.11-0.59); Monocytes % (auto) 8.5 %; Neutrophils # (auto) 17.54 K/uL (1.4-6.5); Neutrophils % (auto) 86.6 %; Platelet Count 273 K/uL (130-400); RDW Standard Deviation 43.9 fL (36.4-46.3); Red Blood Count 3.92 M/uL (4.2-5.4); White Blood Count 20.27 K/uL (4.8-10.8)
[2020-05-03 07:04] LABS: BUN Creatinine Ratio 14.8 (10-20); Calcium 8.9 mg/dl (8.5-10.1); Creatinine Clr Calc Pharmacy 68.7 ml/min; Est GFR (African American) 90.9; Est GFR (Non-African American) 78.5; Potassium 4.1 mmol/L (3.5-5.1)
--- NOTE | 2020-05-03 08:25 | Hospitalist Progress Note ---
Date of Service May 03, 2020 Assessment & Plan (1) DJD of left shoulder: * POD #1 s/p RIGHT total shoulder arthroplasty with Dr. Dinh. Pre-op h/h 14.7/44.3. EBL 100ml. * PT/OT/pain management/DVT prophylaxis per primary service * Vancomycin per primary service x 1 in operative period * H/h dropped to 11.6/36.2 -- acute blood loss from surgery/IVF * WBC up to 20.2k but did get steroids operatively --> given wheezing/crackles on examination, will obtain CXR to ensure no pneumonia and she did state a cough but non-productive * Monitor labs in AM (2) Asthma: * Symbicort 2 puffs BID as she takes at home * Continue ventolin prn --> patient took two puffs while in room with improvement but will notify nursing if she has any further tightness/wheezing and we will order nebulizer treatment * Sats stable on RA * CXR pending (3) Allergic rhinitis: * Stable -- continue home nasacort * Continue cetirizine 10mg in the morning and montelukast 10mg at night (4) Hypothyroidism: * Chronic. Continue home levothyroxine 100mcg daily (5) Hyperlipidemia: * Chronic. Familial. Continue home simvastatin 20mg HS (6) GERD (gastroesophageal reflux disease): * Chronic. Continue protonix instead of omeprazole while inpatient --> Protonix 40mg BID (7) Obesity: * BMI 38.5 -- encourage diet/weight loss (8) Sleep apnea: * Records indicated patient "unable to tolerate CPAP" however patient states she uses this nightly and brought hers in from home * Continue CPAP HS (9) Acute blood loss anemia: * As above (10) DVT prophylaxis: * SCDs * Chemoprophylaxis per primary service -- note states ASA, but only ordered once daily. Messaged Charles John to verify correct Miralax added for bowels Discharge tomorrow or Wednesday as per primary service Thank you for allowing medicine service to participate in the care of Mrs. Shaikh. Medicine will follow along. Admission and Anticipated Discharge Date Admission Date: May 02, 2020 Supervising Physician Co-Signing Physician Notes PA Supervision Note: I personally saw and examined the patient. I verified all adams points and agree with ARNULFO Morales with the following exceptions and/or additions: None Subjective Patient evaluated this morning. Had worked well with physical therapy this morning. Planning on d/c tomorrow with OPPT. She states pain currently controlled with ordered medication. Passing gas but no BM. Will add Miralax. Concerns with drain removal on Wednesday as she had issues with that in the past time when she was having her knee replaced. Confirmed that I will speak with nursing to ensure no issues that would hold up her discharge over the weekend. Blood pressures chronically run low at home and she is asymptomatic currently. Denied shortness of breath, but expiratory wheezes on exam and patient does admit that she feels tight. Has her albuterol inhaler in her purse and willing to take 2 puffs. If unsuccessful, will order nebulizer treatment. No fever, chills, chest pain, shortness of breath, abdominal pain, nausea, vomiting. Review of Systems Review of Systems: All systems reviewed & are unremarkable except as noted in HPI & below Physical Exam Constitutional: WD/WN, vitals as above no acute distress Eyes: + anicteric sclerae and PERRL ENMT: Ears: no hearing impairment Nose: no external nose abnormality Neck: trachea midline, no thyromegaly Respiratory: normal respiratory effort and able to speak in complete sentences; no respiratory distress and no labored breathing Auscultation: + diminished lung sounds, + crackles (bases) and + wheezes (left posterior expiratory wheezing) Cardiovascular: RRR, no murmur, no edema Gastrointestinal (Abdomen): normal bowel sounds, soft, nontender, no hepatosplenomegaly Musculoskeletal: sling to RIGHT arm with drain functioning, dressing c/d/i NVI. fingers mobile rivet driver strength 5/5 bilaterally 2+ radial pulses bilaterally Neurologic: PERRL, EOMI, accommodation nl, no face palsy, no dysarthria Psychiatric: A+Ox3, euthymic affect Lymphatic: no cervical or axillary lymphadenopathy Results & Data Results & Data ([facility]) Vital Signs (Past 12 Hours) Vital Signs Temp Pulse Resp BP Pulse Ox 05/03/20 06:36 36.8 C 86 19 93/59 L 95 05/03/20 03:32 36.8 C 90 19 98/62 L 90 05/02/20 23:34 36.6 C 89 18 101/65 93 Laboratory Results 05/03/20 05/03/20 Range/Units 06:12 06:12 WBC 20.27 H (4.8-10.8) K/uL RBC 3.92 L (4.2-5.4) M/uL Hgb 11.6 L (12.0-16.0) g/dL Hct 36.2 L (37-47) % MCV 92.3 (80-100) fL MCH 29.6 (25-34) pg MCHC 32.0 (32-36) g/dL RDW Std Deviation 43.9 (36.4-46.3) fL RDW Coeff of Scarlet 13.0 (11.5-14.5) % Plt Count 273 (130-400) K/uL MPV 10.0 (7.4-10.4) fL Immature Gran % (Auto) 0.2 % Neut % (Auto) 86.6 % Lymph % (Auto) 4.7 % [place] % (Auto) 8.5 % Eos % (Auto) 0.0 % Baso % (Auto) 0.0 % Neut # (Auto) 17.54 H (1.4-6.5) K/uL Lymph # (Auto) 0.96 L (1.2-3.4) K/uL [place] # (Auto) 1.72 H (0.11-0.59) K/uL Eos # (Auto) 0.00 (0-0.5) K/uL Baso # (Auto) 0.01 (0-0.2) K/uL Immature Gran # (Auto) 0.04 H (0.00-0.02) K/uL Sodium 140 (136-145) mmol/L Potassium 4.1 (3.5-5.1) mmol/L Chloride 110 H (98-107) mmol/L Carbon Dioxide 25 (21-32) mmol/L Anion Gap 5.0 (3-11) BUN 12 (7-18) mg/dl Creatinine 0.80 (0.6-1.2) mg/dl Est Cr Clr Drug Dosing 68.7 ml/min Est GFR ( Amer) 90.9 Est GFR (Non-Af Amer) 78.5 BUN/Creatinine Ratio 14.8 (10-20) Glucose 129 H (70-99) mg/dl Calcium 8.9 (8.5-10.1) mg/dl PG Care Time/CCT Total # of Minutes Spent Total Time Spent with Patient: Total time spent is greater than 50% in coordination of care (as documented) at patient's floor/unit and/or counseling patient: Coding Level of Care Code 73064 Subseq Hosp Care Lvl 2 Diagnoses DJD of left shoulder M19.012 Asthma J45.909 Allergic rhinitis J30.9 Hypothyroidism E03.9 Hyperlipidemia E78.5 GERD (gastroesophageal reflux disease) K21.9 Obesity E66.9 Sleep apnea G47.30 Acute blood loss anemia D62 DVT prophylaxis Z29.9
[2020-05-03] MEDS: PANTOprazole 40 MG TAB PO SCH ×2 (08:44→21:13)
[2020-05-03] MEDS: ASPIRIN 81 MG ECTAB PO SCH (08:44)
[2020-05-03] MEDS: LACTOBACILLUS ACIDOPHILUS (FLORANEX) TAB PO SCH (08:44)
[2020-05-03] MEDS: MULTIVITAMIN TAB PO SCH (08:44)
[2020-05-03] MEDS: DOCUSATE SODIUM 100 MG CAP PO SCH ×2 (08:45→21:13)
[2020-05-03] MEDS ORDERED: FLUTICASONE/VILANTEROL 200/25MCG 14 PUFFS/INHALER INH SCH (09:00)
[2020-05-03] MEDS ORDERED: INFLUENZA ADMINISTRATION CHARGE ONE (09:00)
--- NOTE | 2020-05-03 09:16 | Orthopedic Progress Note ---
Date of Service May 03, 2020 Assessment & Plan (1) Arthritis of right shoulder region: POD #1, Right TSA, Biceps tenodesis PT/ OT DVT proph- ASA D/C plans- Home w OPPT Sat. As per medicine. Admission and Anticipated Discharge Date Admission Date: May 02, 2020 Subjective POD #1, doing well Denies SOB, CP, N/V, dizziness. Pain controlled well. Wishes OPPT on discharge. Physical Exam Physical Exam: Right shoulder dressings c/d/i, no drainage. Sling in tact. Fingers Mobile. A&Ox3. Results & Data ([facility]) Vital Signs (Past 12 Hours) Vital Signs Temp Pulse Resp BP Pulse Ox 05/03/20 06:36 36.8 C 86 19 93/59 L 95 05/03/20 03:32 36.8 C 90 19 98/62 L 90 05/02/20 23:34 36.6 C 89 18 101/65 93
[2020-05-03] MEDS: POLYETHYLENE (MIRALAX) 17 GM PACK PO SCH (12:45)
[2020-05-03] MEDS ORDERED: ALBUTEROL 0.083% NEBU SOLN 3 ML VIAL NEB PRN (12:55)
--- NOTE | 2020-05-03 15:00 | XRay Report ---
TWO VIEW CHEST CLINICAL HISTORY: Wheezing. Leukocytosis. FINDINGS: PA and lateral chest radiographs are compared to study dated 05/23/2019. The cardiomediasti nal silhouette is unremarkable. There are low lung volumes with elevation of the right hemidiaphragm and bibasilar atelectasis. No airspace consolidation or pleural effusion is identified. There is no p neumothorax. The skeletal structures are osteopenic. The bony thorax appears intact. Bilateral should er arthroplasties are in place. Postoperative change is seen at the right AC joint. Degenerative andre ge and hyperkyphosis is noted in the thoracic spine. IMPRESSION: No active disease in the chest. ACT 112: Negative or not required by law. Electronically signed by: Ko Carlin M.D. 05/03/2020 2:58 PM
[2020-05-03] MEDS: HYDROmorphone INJ 0.5 MG/0.5 ML SYR IV PRN ×2 (15:28→21:09)
[2020-05-03] MEDS: SIMVASTATIN 20 MG TAB PO SCH (21:13)
[2020-05-03] MEDS: MONTELUKAST SODIUM 10 MG TABLET PO SCH (21:13)
[2020-05-03] MEDS: SENNA 8.6 MG TAB PO SCH (21:13)
[2020-05-04] MEDS: HYDROmorphone INJ 0.5 MG/0.5 ML SYR IV PRN ×3 (02:23→12:11)
[2020-05-04] MEDS: ACETAMINOPHEN 500 MG TAB PO SCH (06:10)
[2020-05-04] MEDS: LEVOTHYROXINE SODIUM 100 MCG TABLET PO SCH (06:10)
[2020-05-04] MEDS: oxyCODONE HCL IR 5 MG TAB (IMMEDIATE RELEASE) PO PRN ×2 (06:10→13:37)
[2020-05-04 06:18] LABS: Basophils # (auto) 0.03 K/uL (0-0.2); Basophils % (auto) 0.3 %; Eosinophils # (auto) 0.18 K/uL (0-0.5); Eosinophils % (auto) 1.6 %; Hematocrit (blood only) 34.7 % (37-47); Hemoglobin 10.5 g/dL (12.0-16.0); Immature Granulocytes # (auto) 0.03 K/uL (0.00-0.02); Immature Granulocytes % (auto) 0.3 %; Lymphocytes # (auto) 1.94 K/uL (1.2-3.4); Lymphocytes % (auto) 17.4 %; Mean Corpuscular Hemoglobin 28.2 pg (25-34); Mean Corpuscular Hgb Conc 30.3 g/dL (32-36); Mean Corpuscular Volume 93.3 fL (80-100); Mean Platelet Volume 10.4 fL (7.4-10.4); Monocytes # (auto) 1.15 K/uL (0.11-0.59); Monocytes % (auto) 10.3 %; Neutrophils # (auto) 7.83 K/uL (1.4-6.5); Neutrophils % (auto) 70.1 %; Platelet Count 258 K/uL (130-400); RDW Coefficient of Variation 13.4 % (11.5-14.5); RDW Standard Deviation 46.3 fL (36.4-46.3); Red Blood Count 3.72 M/uL (4.2-5.4); White Blood Count 11.16 K/uL (4.8-10.8)
[2020-05-04] MEDS: BUDESONIDE/FORMOTEROL FUMARATE 160/4.5 60 PUFFS/INHALER INH SCH (06:41)
[2020-05-04] MEDS: TRIAMCINOLONE ACET NASAL SPRAY 10.8ML BTL NAE SCH (06:41)
[2020-05-04 06:54] LABS: BUN Creatinine Ratio 19.6 (10-20); Calcium 8.9 mg/dl (8.5-10.1); Creatinine Clr Calc Pharmacy 76.3 ml/min; Est GFR (African American) 103.3; Est GFR (Non-African American) 89.1
--- NOTE | 2020-05-04 07:05 | Orthopedic Progress Note ---
Date of Service May 04, 2020 Assessment & Plan (1) Arthritis of right shoulder region: POD #2 Right Total Shoulder Arthroplasty, Open Distal Clavicle Excision PT/ OT DVT proph- ASA D/C plans- Home w HHPT today Admission and Anticipated Discharge Date Admission Date: May 02, 2020 Subjective POD #2, doing well Denies SOB, CP, N/V, dizziness. Pain controlled well. Physical Exam Physical Exam: Vital Signs Temp 36.8 C 05/04/20 07:00 Pulse 73 05/04/20 07:00 Resp 16 05/04/20 07:00 BP 124/78 05/04/20 07:00 Pulse Ox 90 05/04/20 07:00 Intake & Output 05/03/20 05/04/20 05/04/20 18:59 06:59 18:59 Intake Total 680 / 1530 850 / 1530 Output Total 650 / 661 11 / 661 Balance 30 / 869 839 / 869 Intake: Oral 680 / 1530 850 / 1530 Output: Urine 600 / 600 Drain Output 50 / 60 10 / 60 Right Shoulder Hemovac 50 / 60 10 / 60 # Bowel Movement s / Other: # Unmeasured Voi ds 1 Constitutional: WD/WN, vitals as above no acute distress Musculoskeletal: Right shoulder: NVDI, Rad +2, rad/med/ulnar nerves intact distally, no tenderness upper arm or forearm. Results & Data ([facility]) Vital Signs (Past 12 Hours) Vital Signs Temp Pulse Resp BP Pulse Ox 05/04/20 07:00 36.8 C 73 16 124/78 90 05/03/20 23:01 37 C 76 18 124/81 92 Laboratory Results Laboratory Results WBC 11.16 K/uL (4.8-10.8) H 05/04/20 05:23 RBC 3.72 M/uL (4.2-5.4) L 05/04/20 05:23 Hgb 10.5 g/dL (12.0-16.0) L 05/04/20 05:23 Hct 34.7 % (37-47) L 05/04/20 05:23 MCV 93.3 fL (80-100) 05/04/20 05:23 MCH 28.2 pg (25-34) 05/04/20 05:23 MCHC 30.3 g/dL (32-36) L 05/04/20 05:23 RDW Std Deviation 46.3 fL (36.4-46.3) 05/04/20 05:23 RDW Coeff of Scarlet 13.4 % (11.5-14.5) 05/04/20 05:23 Plt Count 258 K/uL (130-400) 05/04/20 05:23 MPV 10.4 fL (7.4-10.4) 05/04/20 05:23 Immature Gran % (Auto) 0.3 % 05/04/20 05:23 Neut % (Auto) 70.1 % 05/04/20 05:23 Lymph % (Auto) 17.4 % 05/04/20 05:23 [place] % (Auto) 10.3 % 05/04/20 05:23 Eos % (Auto) 1.6 % 05/04/20 05:23 Baso % (Auto) 0.3 % 05/04/20 05:23 Neut # (Auto) 7.83 K/uL (1.4-6.5) H 05/04/20 05:23 Lymph # (Auto) 1.94 K/uL (1.2-3.4) 05/04/20 05:23 [place] # (Auto) 1.15 K/uL (0.11-0.59) H 05/04/20 05:23 Eos # (Auto) 0.18 K/uL (0-0.5) 05/04/20 05:23 Baso # (Auto) 0.03 K/uL (0-0.2) 05/04/20 05:23 Immature Gran # (Auto) 0.03 K/uL (0.00-0.02) H 05/04/20 05:23 PT 10.6 Seconds (9.0-12.0) 04/09/20 09:12 INR 1.0 (0.9-1.1) 04/09/20 09:12 APTT 30.6 Seconds (21.0-31.0) 04/09/20 09:12 PTT Ratio 1.1 04/09/20 09:12 Sodium 140 mmol/L (136-145) 05/04/20 05:23 Potassium mmol/L (3.5-5.1) 05/04/20 05:23 Chloride 108 mmol/L (98-107) H 05/04/20 05:23 Carbon Dioxide 28 mmol/L (21-32) 05/04/20 05:23 Anion Gap 4.0 (3-11) 05/04/20 05:23 BUN 14 mg/dl (7-18) 05/04/20 05:23 Creatinine 0.72 mg/dl (0.6-1.2) 05/04/20 05:23 Est Cr Clr Drug Dosing 76.3 ml/min 05/04/20 05:23 Est GFR ( Amer) 103.3 05/04/20 05:23 Est GFR (Non-Af Amer) 89.1 05/04/20 05:23 BUN/Creatinine Ratio 19.6 (10-20) 05/04/20 05:23 Glucose 87 mg/dl (70-99) 05/04/20 05:23 Estimat Average Glucose 108 mg/dl 04/09/20 09:12 Hemoglobin A1c 5.4 % (4.5-5.6) 04/09/20 09:12 Calcium 8.9 mg/dl (8.5-10.1) 05/04/20 05:23 Albumin 4.1 gm/dl (3.4-5.0) 04/09/20 09:12 Urine Color Yellow 04/09/20 09:12 Urine Appearance Clear (Clear) 04/09/20 09:12 Urine pH 6.5 (4.5-7.5) 04/09/20 09:12 Ur Specific Central 1.004 (1.000-1.030) 04/09/20 09:12 Urine Protein Negative (Negative) 04/09/20 09:12 Urine Glucose (UA) Negative (Negative) 04/09/20 09:12 Urine Ketones Negative (Negative) 04/09/20 09:12 Urine Blood Negative (Negative) 04/09/20 09:12 Urine Nitrite Negative (Negative) 04/09/20 09:12 Urine Bilirubin Negative (Negative) 04/09/20 09:12 Urine Urobilinogen Negative (Negative) 04/09/20 09:12 Ur Leukocyte Esterase Negative (Negative) 04/09/20 09:12 Blood Type A Positive 04/09/20 09:12 Antibody Screen NEGATIVE 04/09/20 09:12
[2020-05-04] MEDS: PANTOprazole 40 MG TAB PO SCH (08:05)
[2020-05-04] MEDS: MULTIVITAMIN TAB PO SCH (08:05)
[2020-05-04] MEDS: DOCUSATE SODIUM 100 MG CAP PO SCH (08:05)
[2020-05-04] MEDS: LACTOBACILLUS ACIDOPHILUS (FLORANEX) TAB PO SCH (08:05)
[2020-05-04] MEDS: ASPIRIN 81 MG ECTAB PO SCH (08:05)
[2020-05-04] MEDS: POLYETHYLENE (MIRALAX) 17 GM PACK PO SCH (08:06)
--- NOTE | 2020-05-04 08:33 | Hospitalist Progress Note ---
Date of Service May 04, 2020 Assessment & Plan (1) DJD of left shoulder: * POD #2 s/p RIGHT total shoulder arthroplasty with Dr. Dinh. Pre-op h/h 14.7/44.3. EBL 100ml. * PT/OT/pain management/DVT prophylaxis per primary service * Vancomycin per primary service x 1 in operative period * H/h 10.5/34.7, stable -- acute blood loss from surgery/IVF * WBC up to 20.2k but did get steroids operatively --> trended back down 11.1k. CXR negative for acute process * Discharge later this afternoon per primary service after therapy (2) Asthma: * Symbicort 2 puffs BID as she takes at home * Continue ventolin prn --> patient took two puffs while in room with improvement but will notify nursing if she has any further tightness/wheezing and we will order nebulizer treatment * Sats stable on RA * CXR w/ atelectasis (3) Allergic rhinitis: * Stable -- continue home nasacort * Continue cetirizine 10mg in the morning and montelukast 10mg at night (4) Hypothyroidism: * Chronic. Continue home levothyroxine 100mcg daily (5) Hyperlipidemia: * Chronic. Familial. Continue home simvastatin 20mg HS (6) GERD (gastroesophageal reflux disease): * Chronic. Continue protonix instead of omeprazole while inpatient --> Protonix 40mg BID (7) Obesity: * BMI 38.5 -- encourage diet/weight loss (8) Sleep apnea: * Records indicated patient "unable to tolerate CPAP" however patient states she uses this nightly and brought hers in from home * Continue CPAP HS (9) Acute blood loss anemia: * As above (10) DVT prophylaxis: * SCDs * ASA Thank you for allowing medicine service to participate in the care of Mrs. Shaikh. Medicine will sign off. Admission and Anticipated Discharge Date Admission Date: May 02, 2020 Supervising Physician Co-Signing Physician Notes PA Supervision Note: I did not personally see or examine the patient today, but I verified all adams points of ARNULFO Morales's assessment and plan with the following exceptions/additions: None Subjective Patient evaluated this morning. Painful during the night but appearing to be under control at the current moment. Drain removed last night due to increased pain/pressure and states that helped as well. No numbness/tingling. Eating/drinking without difficulty. Passing lots of gas but no BM yet. Awaiting niece to arrive to help get her cleaned up before she does home later this afternoon. No further tightness in her chest. Denies fever, chills, chest pain, shortness of breath, n/v, dysuria at this time. Plans for d/c after therapy today per primary service. Review of Systems Review of Systems: All systems reviewed & are unremarkable except as noted in HPI & below Physical Exam Constitutional: WD/WN, vitals as above no acute distress Eyes: + anicteric sclerae and PERRL Neck: normal visual inspection Respiratory: normal respiratory effort, lungs clear to auscultation Auscultation: + diminished lung sounds and + wheezes (faint end expiratory wheezing R posterior base); no crackles Cardiovascular: RRR, no murmur, no edema Gastrointestinal (Abdomen): normal bowel sounds, soft, nontender, no hepatosplenomegaly Musculoskeletal: sling to RIGHT arm, dressing c/d/i with tegaderm covering NVI. fingers mobile rat exterminator strength 5/5 bilaterally 2+ radial pulses bilaterally Skin: warm, dry Neurologic: PERRL, EOMI, accommodation nl, no face palsy, no dysarthria Psychiatric: A+Ox3, euthymic affect Lymphatic: no cervical or axillary lymphadenopathy Results & Data Results & Data ([facility]) Vital Signs (Past 12 Hours) Vital Signs Temp Pulse Resp BP Pulse Ox 05/04/20 07:00 36.8 C 73 16 124/78 90 05/03/20 23:01 37 C 76 18 124/81 92 Laboratory Results 05/04/20 05/04/20 05/04/20 Range/Units 07:02 05:23 05:23 WBC 11.16 H (4.8-10.8) K/uL RBC 3.72 L (4.2-5.4) M/uL Hgb 10.5 L (12.0-16.0) g/dL Hct 34.7 L (37-47) % MCV 93.3 (80-100) fL MCH 28.2 (25-34) pg MCHC 30.3 L (32-36) g/dL RDW Std Deviation 46.3 (36.4-46.3) fL RDW Coeff of Scarlet 13.4 (11.5-14.5) % Plt Count 258 (130-400) K/uL MPV 10.4 (7.4-10.4) fL Immature Gran % (Auto) 0.3 % Neut % (Auto) 70.1 % Lymph % (Auto) 17.4 % [place] % (Auto) 10.3 % Eos % (Auto) 1.6 % Baso % (Auto) 0.3 % Neut # (Auto) 7.83 H (1.4-6.5) K/uL Lymph # (Auto) 1.94 (1.2-3.4) K/uL [place] # (Auto) 1.15 H (0.11-0.59) K/uL Eos # (Auto) 0.18 (0-0.5) K/uL Baso # (Auto) 0.03 (0-0.2) K/uL Immature Gran # (Auto) 0.03 H (0.00-0.02) K/uL Sodium 140 (136-145) mmol/L Potassium 3.7 (3.5-5.1) mmol/L Chloride 108 H (98-107) mmol/L Carbon Dioxide 28 (21-32) mmol/L Anion Gap 4.0 (3-11) BUN 14 (7-18) mg/dl Creatinine 0.72 (0.6-1.2) mg/dl Est Cr Clr Drug Dosing 76.3 ml/min Est GFR ( Amer) 103.3 Est GFR (Non-Af Amer) 89.1 BUN/Creatinine Ratio 19.6 (10-20) Glucose 87 (70-99) mg/dl Calcium 8.9 (8.5-10.1) mg/dl PG Care Time/CCT Total # of Minutes Spent Total Time Spent with Patient: Total time spent is greater than 50% in coordination of care (as documented) at patient's floor/unit and/or counseling patient: Coding Level of Care Code 41213 Subseq Hosp Care Lvl 2 Diagnoses DJD of left shoulder M19.012 Asthma J45.909 Allergic rhinitis J30.9 Hypothyroidism E03.9 Hyperlipidemia E78.5 GERD (gastroesophageal reflux disease) K21.9 Obesity E66.9 Sleep apnea G47.30 Acute blood loss anemia D62 DVT prophylaxis Z29.9
[2020-05-06] MEDS ORDERED: INFLUENZA VIRUS QUAD VACCINE 0.5 ML SYR IM ONE (09:00)
--- NOTE | 2020-05-12 20:44 | Discharge Summary (DS) ---
HISTORY OF PRESENT ILLNESS: This is a 64-year-old female patient of Dr. Dinh's complaining of chronic right shoulder pain, longstanding, now progressively getting worse. She has been diagnosed with end-stage osteoarthritis and has elected to proceed with a right total shoulder arthroplasty. PAST MEDICAL HISTORY: Asthma, hypothyroidism, osteoarthritis, neck problems, acid reflux, and obesity. POSTOPERATIVE COURSE: The patient underwent a right total shoulder arthroplasty, biceps tenodesis and open distal clavicle excision on 05/02/2020. She was followed closely with physical therapy, pain control, and medical consultation. The patient did well postoperatively and was discharged home on postoperative day #2. PHYSICAL EXAMINATION: On discharge, right shoulder incision was clean, dry and intact. There is no redness or drainage. Skin edges were approximated well. Angel were intact. She had good elbow, wrist and finger range of motion. Sling was intact. Neurologically and neurovascularly she was intact in her right upper extremity. DIAGNOSES: Status post right total shoulder arthroplasty, biceps tenodesis and open distal clavicle excision. She has a history of asthma, hypothyroidism, osteoarthritis, neck problems, acid reflux and obesity. PLAN: The patient was discharged home with home health services. She will continue her preadmission medications with the addition of pain medications as needed. She will follow up with Dr. Dinh as scheduled as an outpatient.
== END 2020-05-04 14:13 | disposition home health service (06) | DRG 483 ==
LOC: ASU 09:35 → 3E 14:42

== ENCOUNTER 2023-12-13 09:10 | Observation (INO) ==
--- NOTE | 2023-11-15 10:57 | PAT Medication Instructions ---
Medication Instructions Date of Service November 15, 2023 Home Medications albuterol sulfate 90 mcg/actuation aerosol inhaler 2 puff inhalation Q6H PRN Wheezing budesonide-formoterol HFA 160 mcg-4.5 mcg/actuation aerosol inhaler (Symbicort) 2 puff inhalation Q12H cyclosporine 0.05 % eye drops in a dropperette (Restasis) 1 drp ophthalmic (eye) Q12H montelukast 10 mg tablet (Singulair) 10 mg PO PM omeprazole 40 mg capsule,delayed release 40 mg PO BID simvastatin 20 mg tablet 20 mg PO HS aspirin 81 mg tablet,delayed release (Aspir-) 81 mg PO QAM diphenhydramine 25 mg-acetaminophen 500 mg tablet (Tylenol PM Extra Strength) 1 tab PO HS PRN Sleep levothyroxine 100 mcg tablet 100 mcg PO QAM L.acidophilus,rhamnosus-B.breve-S.thermophilus 3 billion cell chew tab 1 tab PO QAM acetaminophen 325 mg tablet 650 mg PO QID PRN Pain cetirizine 10 mg tablet (Zyrtec) 10 mg PO QAM cholecalciferol (vitamin D3) 125 mcg (5,000 unit) tablet (Vitamin D3) 125 mcg PO QAM citalopram 10 mg tablet (Celexa) 10 mg PO QAM clindamycin HCl 300 mg capsule 600 mg PO UD PRN dental procedures ibuprofen 200 mg tablet 200 mg PO Q6H PRN Pain ipratropium 0.5 mg-albuterol 3 mg (2.5 mg base)/3 mL nebulization soln 3 ml inhalation Q6H PRN sob meloxicam 7.5 mg tablet 7.5 mg PO BID prednisone 10 mg tablet 10 mg PO DAILY PRN bronchitis or wheezing tramadol 50 mg tablet 50 mg PO BID PRN Pain triamcinolone acetonide 55 mcg/actuation nasal spray,aerosol 55 mcg intranasal BID Continue as directed clindamycin HCl 300 mg capsule 600 mg PO UD PRN dental procedures (if needed) ASK your surgeon for instructions ibuprofen 200 mg tablet 200 mg PO Q6H PRN Pain meloxicam 7.5 mg tablet 7.5 mg PO BID ASK your prescriber and surgeon aspirin 81 mg tablet,delayed release (Aspir-) 81 mg PO QAM DO NOT take the morning of surgery L.acidophilus,rhamnosus-B.breve-S.thermophilus 3 billion cell chew tab 1 tab PO QAM cetirizine 10 mg tablet (Zyrtec) 10 mg PO QAM cholecalciferol (vitamin D3) 125 mcg (5,000 unit) tablet (Vitamin D3) 125 mcg PO QAM Take morning of surgery With a small sip of water, OTHERWISE NOTHING TO EAT OR DRINK AFTER MIDNIGHT: albuterol sulfate 90 mcg/actuation aerosol inhaler 2 puff inhalation Q6H PRN Wheezing (use if needed; please bring rescue inhaler with you to hospital day of surgery if possible) budesonide-formoterol HFA 160 mcg-4.5 mcg/actuation aerosol inhaler (Symbicort) 2 puff inhalation Q12H cyclosporine 0.05 % eye drops in a dropperette (Restasis) 1 drp ophthalmic (eye) Q12H omeprazole 40 mg capsule,delayed release 40 mg PO BID levothyroxine 100 mcg tablet 100 mcg PO QAM acetaminophen 325 mg tablet 650 mg PO QID PRN Pain (if needed) citalopram 10 mg tablet (Celexa) 10 mg PO QAM ipratropium 0.5 mg-albuterol 3 mg (2.5 mg base)/3 mL nebulization soln 3 ml inhalation Q6H PRN sob (if needed) prednisone 10 mg tablet 10 mg PO DAILY PRN bronchitis or wheezing (if needed) tramadol 50 mg tablet 50 mg PO BID PRN Pain (if needed) triamcinolone acetonide 55 mcg/actuation nasal spray,aerosol 55 mcg intranasal BID Take evening before surgery albuterol sulfate 90 mcg/actuation aerosol inhaler 2 puff inhalation Q6H PRN Wheezing (if needed) budesonide-formoterol HFA 160 mcg-4.5 mcg/actuation aerosol inhaler (Symbicort) 2 puff inhalation Q12H cyclosporine 0.05 % eye drops in a dropperette (Restasis) 1 drp ophthalmic (eye) Q12H montelukast 10 mg tablet (Singulair) 10 mg PO PM omeprazole 40 mg capsule,delayed release 40 mg PO BID simvastatin 20 mg tablet 20 mg PO HS diphenhydramine 25 mg-acetaminophen 500 mg tablet (Tylenol PM Extra Strength) 1 tab PO HS PRN Sleep (if needed) acetaminophen 325 mg tablet 650 mg PO QID PRN Pain (if needed) ipratropium 0.5 mg-albuterol 3 mg (2.5 mg base)/3 mL nebulization soln 3 ml inhalation Q6H PRN sob (if needed) prednisone 10 mg tablet 10 mg PO DAILY PRN bronchitis or wheezing (if needed) tramadol 50 mg tablet 50 mg PO BID PRN Pain (if needed) triamcinolone acetonide 55 mcg/actuation nasal spray,aerosol 55 mcg intranasal BID Other Notes If you have any questions please call us at [phone] or [phone] or [phone] or [phone]
--- NOTE | 2023-11-24 10:26 | Anesthesiology Consultation ---
Date of Service November 24, 2023 Assessment & Plan (1) Encounter for pre-operative examination: Chart Review Chart Review: Acceptable Risk for Surgery (pending PCP clearance 12/03/23, six minute walk test/ECHO 12/06/23) and Patient seen in Pre Admission Testing - Awaiting PCP clearance 12/03/23 ([facility]- Dr. Mini Trevino- ARNULFO Paz)- please fax preop testing for PCP review - Awaiting six minute walk test and ECHO scheduled 12/06/23 (scheduled with PCP) - Patient is NOT an ideal OPJ candidate (currently 23 hour obs) Per PAT appt on 11/24/23, no recent illness/disease exposures, illness related symptoms, or recent illness/disease positive tests. Will leave to surgeon's discretion if preop Covid testing needed Teaching & Discussion Pre-Anesthesia Teaching/Discussion Notes: Instructed NPO after midnight before surgery,except medications with 15 cc of water. Medication instructions provided according to the PAT guidelines. History Surgery Operation Date: 12/13/23 11:25 Proposed Procedures p Left Total Knee Arthroplasty - David Dinh MD Height/Weight Height: 4 ft 11 in Weight: 86.9 kg Allergies Allergy/AdvReac Type Severity Reaction Status Date / Time mold Allergy Intermediate MOLD TREE Verified 11/11/23 14:56 POLLEN-ASTHMA SYMPTOMS adhesive tape AdvReac Severe SKIN Verified 11/11/23 14:56 IRRITATION -PAPER TAPE OK Penicillins AdvReac Severe COLITIS Verified 11/11/23 14:56 INTERNAL BLEEDING garlic AdvReac Intermediate NAUSEA AND Verified 11/11/23 14:56 VOMITNG lettuce AdvReac Intermediate Verified 11/11/23 14:56 tomato AdvReac Intermediate TOMATO Verified 11/11/23 14:56 SAUCE-GERD watermelon AdvReac Intermediate Verified 11/11/23 14:56 steri strips Allergy Severe Redness of Uncoded 11/11/23 14:56 Skin and inflammation/pus surgical damien Allergy Severe Redness of Uncoded 11/11/23 14:56 Skin and inflammation/pus Additional Notes: Surgeon aware of steri strip, surgical stable and adhesive allergy per patient Medications Home Medications Medication Instructions Recorded Confirmed Last Taken albuterol sulfate 90 mcg/actuation 2 puff inhalation Q6H PRN Wheezing 05/15/19 11/11/23 05/01/20 08:00 aerosol inhaler budesonide-formoterol HFA 160 2 puff inhalation Q12H 05/15/19 11/11/23 05/02/20 09:00 mcg-4.5 mcg/actuation aerosol inhaler (Symbicort) cyclosporine 0.05 % eye drops in a 1 drp ophthalmic (eye) Q12H 05/15/19 11/11/23 05/02/20 09:00 dropperette (Restasis) montelukast 10 mg tablet 10 mg PO PM 05/15/19 11/11/23 05/01/20 21:00 (Singulair) omeprazole 40 mg capsule,delayed 40 mg PO BID 05/15/19 11/11/23 05/02/20 09:00 release simvastatin 20 mg tablet 20 mg PO HS 05/15/19 11/11/23 05/01/20 21:00 aspirin 81 mg tablet,delayed 81 mg PO QAM 04/04/20 11/11/23 05/02/20 09:00 release (Aspir-) diphenhydramine 25 1 tab PO HS PRN Sleep 04/04/20 11/11/23 05/01/20 21:00 mg-acetaminophen 500 mg tablet (Tylenol PM Extra Strength) levothyroxine 100 mcg tablet 100 mcg PO QAM 04/04/20 11/11/23 05/02/20 09:00 L.acidophilus,rhamnosus-B.breve-S.thermophilus 1 tab PO QAM 11/11/23 11/11/23 Unknown 3 billion cell chew tab acetaminophen 325 mg tablet 650 mg PO QID PRN Pain 11/11/23 11/11/23 Unknown cetirizine 10 mg tablet (Zyrtec) 10 mg PO QAM 11/11/23 11/11/23 Unknown cholecalciferol (vitamin D3) 125 125 mcg PO QAM 11/11/23 11/11/23 Unknown mcg (5,000 unit) tablet (Vitamin D3) citalopram 10 mg tablet (Celexa) 10 mg PO QAM 11/11/23 11/11/23 Unknown clindamycin HCl 300 mg capsule 600 mg PO UD PRN dental procedures 11/11/23 11/11/23 Unknown ibuprofen 200 mg tablet 200 mg PO Q6H PRN Pain 11/11/23 11/11/23 Unknown ipratropium 0.5 mg-albuterol 3 mg 3 ml inhalation Q6H PRN sob 11/11/23 11/11/23 Unknown (2.5 mg base)/3 mL nebulization soln meloxicam 7.5 mg tablet 7.5 mg PO BID 11/11/23 11/11/23 Unknown prednisone 10 mg tablet 10 mg PO DAILY PRN bronchitis or 11/11/23 11/11/23 Unknown wheezing tramadol 50 mg tablet 50 mg PO BID PRN Pain 11/11/23 11/11/23 Unknown triamcinolone acetonide 55 55 mcg intranasal BID 11/11/23 11/11/23 Unknown mcg/actuation nasal spray,aerosol Past Medical History Medical History (Updated 11/24/23 @ 10:56 by Tere Guillen PA-C) Allergic rhinitis Asthma uses PRN inh 2-3 x per month on average - well controlled and stable Dizziness - only occurs when laying down at night- present x months (lasts seconds)- then resolves - Scheduled for upcoming ECHO 12/06/23 (following with PCP) KUMAR (dyspnea on exertion) Chronic with asthma- stable per patient No LE edema Does have ECHO scheduled by PCP 12/06/23 GERD (gastroesophageal reflux disease) controlled and stable Hiatal hernia Hx of migraines rare / 1-2 year Hyperlipidemia Hypothyroidism Sleep apnea CPAP compliant Exercise / Class Metabolic Activity III < 4 Walking/Shop/Light housework (one flight of stairs- mild SOB, no chest pain ) Past Family History Family History Mother , CHF Family history of diabetes mellitus Father TIA (transient ischemic attack) Other No family history of adverse response to anesthesia Denies family history of Myocardial infarction Past Surgical History Surgical History Exploratory laparotomy scar MULTIPLE RELATED TO ENDOMETRIOSIS H/O sinus surgery MULTIPLE History of appendectomy History of arthroscopy R/L KNEE- MENISCUS REPAIR History of bilateral carpal tunnel release History of colonoscopy History of esophagogastroduodenoscopy (EGD) History of hand surgery x 3 left and right hand, right trigger finger release History of hysterectomy TOTAL History of right knee joint replacement 06/12/[facility] History of tonsillectomy History of total replacement of both shoulder joints History of total right hip replacement Past Anesthesia History No Hx of Anesthesia Complications and No Family Hx of Anesthesia Complications History of PONV No Hx of PONV and No Hx of Motion Sickness Social History Smoking Status: Never smoker Do You Dip or Chew Tobacco: No Hx Alcohol Use: No Hx Substance Use: No substance use type: does not use Review of Systems - Mild SOB with asthma aggravation- no recent issues Patient denies chest pain, cough, wheezing, palpitations. No hx of seizures, stroke, LA. No hx of blood clots or blood transfusions Physical Exam Vital Signs VITALS BP 116/52 P73 TEMP 97.7 SP02 95% RESP 16 Constitutional no acute distress ENMT Mouth: no TMJ clicking Thyromental Distance: < 3.5 Finger Breadths (3.0) Mallampati Class: I Mouth / Teeth: 2 1. Missing Top front and bottom teeth capped Missing side teeth and molars. And see above picture Neck + limited neck extension (mild) Respiratory normal respiratory effort; no respiratory distress Auscultation: lungs clear to auscultation bilaterally; no wheezes Cardiovascular Rate/Rhythm: regular rate and regular rhythm Heart Sounds: no murmur Vessels: no carotid bruit Musculoskeletal Spine: + pain with cervical ROM (mild) Extremities: extremities normal to inspection Psychiatric Orientation: alert Lab Results Anesthesia Preop Results Results Anesthesia Widget: 2 WBC 12.55 K/ul (4.8-10.8) H 11/24/23 Hgb 13.2 g/dl (12.0-16.0) 11/24/23 Hct 40.3 % (37.0-47.0) 11/24/23 Plt 315 K/uL (130-400) 11/24/23 Na 140 mmol/L (136-145) 11/24/23 K 4.1 mmol/L (3.5-5.1) 11/24/23 Cl 107 mmol/L (98-107) 11/24/23 CO2 26 mmol/L (21-32) 11/24/23 BUN 25 mg/dl (6-23) H 11/24/23 Creat 0.67 mg/dl (0.6-1.2) 11/24/23 Glucose Level 93 mg/dl (70-99(Fasting)) 11/24/23 PT 10.3 Seconds (9.0-12.0) 11/24/23 PTT 25 Seconds (21-31) 11/24/23 INR 0.9 (0.9-1.1) 11/24/23 Urine Color Yellow 11/24/23 Urine Appearance Turbid (Clear) A 11/24/23 Urine pH 6.5 (4.5-7.5) 11/24/23 Urine Specific [place] 1.006 (1.000-1.030) 11/24/23 Urine Protein Negative (Negative) 11/24/23 Urine Glucose (UA) Negative (Negative) 11/24/23 Urine Ketones Negative (Negative) 11/24/23 Urine Blood Negative (Negative) 11/24/23 Urine Nitrite Negative (Negative) 11/24/23 Urine Bilirubin Negative (Negative) 11/24/23 Urine Urobilinogen Negative (Negative) 11/24/23 Urine Leukocyte Esterase Negative (Negative) 11/24/23 Urine WBC (Auto) 0-5 /hpf (0-5) 11/24/23 Urine RBC (Auto) 6-10 /hpf (0-2) H 11/24/23 Urine Hyaline Casts (Auto) 0-2 /lpf (0-2) 11/24/23 Urine Epithelial Cells (Auto) 0-2 /hpf (0-2) 11/24/23 Urine Bacteria (Auto) None Seen (None Seen) 11/24/23 Blood Type A Positive 11/24/23 Antibody Screen NEGATIVE 11/24/23 Testing Electrocardiogram Date: 11/24/23 Findings: + NSR @ (74bpm) Normal EKG per cardio Chest X-Ray Date: 09/09/23 Findings: + NAD Large gastroesophageal hiatal hernia
--- NOTE | 2023-12-09 17:27 | History & Physical Report ---
Date of Service December 09, 2023 Assessment & Plan (1) Unilateral primary osteoarthritis, left knee: Plan: Severe end-stage osteoarthritis of the left knee. Patient has instability and bone loss and tricompartmental disease. Patient has successful right knee replacement. Proceed with left total knee replacement. History of Present Illness Chief Complaint: Chronic left knee pain due to arthritis Primary Care Provider: Scotty Mantilla 68-year-old female with chronic left knee pain failed conservative management. Patient has grinding, giving way and instability of her left knee. Allergies Allergy/AdvReac Type Severity Reaction Status Date / Time mold Allergy Intermediate MOLD TREE Verified 11/11/23 14:56 POLLEN-ASTHMA SYMPTOMS latex Allergy Unknown Unverified 12/09/23 12:25 adhesive tape AdvReac Severe SKIN Verified 11/11/23 14:56 IRRITATION -PAPER TAPE OK Penicillins AdvReac Severe COLITIS Verified 11/11/23 14:56 INTERNAL BLEEDING garlic AdvReac Intermediate NAUSEA AND Verified 11/11/23 14:56 VOMITNG lettuce AdvReac Intermediate Verified 11/11/23 14:56 tomato AdvReac Intermediate TOMATO Verified 11/11/23 14:56 SAUCE-GERD watermelon AdvReac Intermediate Verified 11/11/23 14:56 steri strips Allergy Severe Redness of Uncoded 11/11/23 14:56 Skin and inflammation/pus surgical damien Allergy Severe Redness of Uncoded 11/11/23 14:56 Skin and inflammation/pus Home Medications Medication Instructions Recorded Confirmed Type albuterol sulfate 90 mcg/actuation 2 puff inhalation Q6H PRN Wheezing 05/15/19 11/11/23 History aerosol inhaler budesonide-formoterol HFA 160 2 puff inhalation Q12H 05/15/19 11/11/23 History mcg-4.5 mcg/actuation aerosol inhaler (Symbicort) cyclosporine 0.05 % eye drops in a 1 drp ophthalmic (eye) Q12H 05/15/19 11/11/23 History dropperette (Restasis) montelukast 10 mg tablet 10 mg PO PM 05/15/19 11/11/23 History (Singulair) omeprazole 40 mg capsule,delayed 40 mg PO BID 05/15/19 11/11/23 History release simvastatin 20 mg tablet 20 mg PO HS 05/15/19 11/11/23 History aspirin 81 mg tablet,delayed 81 mg PO QAM 04/04/20 11/11/23 History release (Aspir-) diphenhydramine 25 1 tab PO HS PRN Sleep 04/04/20 11/11/23 History mg-acetaminophen 500 mg tablet (Tylenol PM Extra Strength) levothyroxine 100 mcg tablet 100 mcg PO QAM 04/04/20 11/11/23 History L.acidophilus,rhamnosus-B.breve-S.thermophilus 1 tab PO QAM 11/11/23 11/11/23 History 3 billion cell chew tab acetaminophen 325 mg tablet 650 mg PO QID PRN Pain 11/11/23 11/11/23 History cetirizine 10 mg tablet (Zyrtec) 10 mg PO QAM 11/11/23 11/11/23 History cholecalciferol (vitamin D3) 125 125 mcg PO QAM 11/11/23 11/11/23 History mcg (5,000 unit) tablet (Vitamin D3) citalopram 10 mg tablet (Celexa) 10 mg PO QAM 11/11/23 11/11/23 History clindamycin HCl 300 mg capsule 600 mg PO UD PRN dental procedures 11/11/23 11/11/23 History ibuprofen 200 mg tablet 200 mg PO Q6H PRN Pain 11/11/23 11/11/23 History ipratropium 0.5 mg-albuterol 3 mg 3 ml inhalation Q6H PRN sob 11/11/23 11/11/23 History (2.5 mg base)/3 mL nebulization soln meloxicam 7.5 mg tablet 7.5 mg PO BID 11/11/23 11/11/23 History prednisone 10 mg tablet 10 mg PO DAILY PRN bronchitis or 11/11/23 11/11/23 History wheezing tramadol 50 mg tablet 50 mg PO BID PRN Pain 11/11/23 11/11/23 History triamcinolone acetonide 55 55 mcg intranasal BID 11/11/23 11/11/23 History mcg/actuation nasal spray,aerosol Past Med/Surg History Problem List (Updated 12/09/23 @ 17:32 by David Dinh MD) Unilateral primary osteoarthritis, left knee Arthritis of right shoulder region Allergic rhinitis Knee pain Obesity Encounter for pre-operative examination DJD of left shoulder Medical History KUMAR (dyspnea on exertion) Chronic with asthma- stable per patient No LE edema Does have ECHO scheduled by PCP 12/06/23 Dizziness - only occurs when laying down at night- present x months (lasts seconds)- then resolves - Scheduled for upcoming ECHO 12/06/23 (following with PCP) Allergic rhinitis Hx of migraines rare / 1-2 year Sleep apnea CPAP compliant Hiatal hernia GERD (gastroesophageal reflux disease) controlled and stable Hypothyroidism Asthma uses PRN inh 2-3 x per month on average - well controlled and stable Hyperlipidemia Surgical History History of total replacement of both shoulder joints History of bilateral carpal tunnel release History of total right hip replacement History of esophagogastroduodenoscopy (EGD) History of colonoscopy History of right knee joint replacement 06/12/2019 [facility] History of hand surgery x 3 left and right hand, right trigger finger release Exploratory laparotomy scar MULTIPLE RELATED TO ENDOMETRIOSIS History of appendectomy History of hysterectomy TOTAL History of arthroscopy R/L KNEE- MENISCUS REPAIR H/O sinus surgery MULTIPLE History of tonsillectomy Family History Mother , CHF Family history of diabetes mellitus Father TIA (transient ischemic attack) Other No family history of adverse response to anesthesia Denies family history of Myocardial infarction Social History Smoking Status: Never smoker Second Hand Exposure: No; Do You Dip or Chew Tobacco: No; Tobacco Cessation Education Requested by Patient: No Hx Alcohol Use: No Hx Substance Use: No Preferred Language: Citizen Of [place] Communication Ability: Effective Finance Specialist Required: No Beliefs That Will Affect Care: None marital status: / Current Living Situation: Alone Other Information That Helps Us Care for You: No Feels Safe at Home: Yes Safety Concerns: Feels Safe At This Time Assistive Devices: CPAP, Glasses and Other Assistive Devices Comment: partial dentures, not worn regularly Review of Systems All systems reviewed & are unremarkable except as noted in HPI & below Asthma and sleep apnea but no shortness of breath or wheezing Additional Comments: Had cardiac stress test and echocardiogram Acid reflux hiatal hernia obesity Multiple degenerative arthritic problems including back arthritis Thyroid disease Internal bleeding with penicillin Physical Exam Constitutional: WD/WN, vitals as above Respiratory: normal respiratory effort; no respiratory distress Cardiovascular: Rate/Rhythm: regular rate and regular rhythm Musculoskeletal: Left knee varus mild effusion and swelling mild patellofemoral crepitation active painful range of motion 10 through 120 degrees range of motion . Medial joint tray line worker. Distal neurological exam motor exam intact. Skin: no rashes, warm and dry Neurologic: normal touch/pain/proprioception Psychiatric: A+Ox3, euthymic affect Results & Data Diagnostic Findings Tricompartmental osteoarthritis with varus knee. Subluxation the femur medially on the tibia with flattening of the medial femoral condyle and [id number] with subchondral sclerosis and osteophytes as well as patellofemoral osteophytes.
[~2023-12-13 09:10] MED LIST changes: -ACETAMINOPHEN 500 MG TAB PO SCH; +BUPIVACAINE 0.5 % 5 MG/1 ML PF 10ML VIAL ONE; -CeleBREX 200 MG CAP PO SCH; -DEXAMETHASONE SOD INJ 4 MG/ML VIAL ONE; -FAMOTIDINE 20 MG TAB PO SCH; -GABAPENTIN 600 MG DOSE PO SCH; -LR 15ML/HR IV SCH; -METOCLOPRAMIDE HCL 10 MG TABLET PO SCH; -MIDAZOLAM HCL 1 MG/ML 2ML VIAL ONE; -VANCOMYCIN HCL 1,250 MG in SODIUM CHLORIDE 0.9% 250 ML IV SCH; -dexAMETHasone 4 MG TAB PO SCH; -fentaNYL citrate 100 MCG/2 ML VIAL ONE
[2023-12-13] MEDS ORDERED: MIDAZOLAM HCL 1 MG/ML 2ML VIAL ONE (09:22)
[2023-12-13] MEDS ORDERED: KETAMINE HCL 10MG/ML SYR ONE (09:22)
[2023-12-13] MEDS ORDERED: ONDANSETRON INJ 2 MG/ML 2 ML VIAL ONE (09:23)
[2023-12-13] MEDS ORDERED: PROPOFOL IV EMULSION 10 MG/ML 100 ML VIAL IV ONE (09:23)
[2023-12-13] MEDS ORDERED: GLYCOPYRROLATE 0.2 MG/ML VIAL ONE (09:23)
[2023-12-13] MEDS ORDERED: PHENYLEPHRINE HCL 10 MG/ML VIAL ONE (09:23)
--- NOTE | 2023-12-13 09:38 | History & Physical Bridge Note ---
Date of Service December 13, 2023 History & Physical Bridge Note I have examined the patient, reviewed the History & Physical and in the interval since the performance of the History & Physical I have noted the following changes of clinical significance: no changes noted
[2023-12-13] MEDS: VANCOMYCIN HCL 1,250 MG in SODIUM CHLORIDE 0.9% 250 ML IV SCH ×2 (10:00→21:53)
[2023-12-13] MEDS: LR 500ML BOLUS, THEN 15ML/HR IV SCH (10:00)
[2023-12-13] MEDS: ACETAMINOPHEN 500 MG TAB PO SCH ×2 (10:17→16:13)
[2023-12-13] MEDS: CeleBREX 200 MG CAP PO SCH ×2 (10:18→21:05)
[2023-12-13] MEDS: dexAMETHasone**PF** 10 MG/ML VIAL IV SCH (10:18)
[2023-12-13] MEDS: GABAPENTIN 300 MG CAP PO SCH (10:18)
[2023-12-13] MEDS: METOCLOPRAMIDE HCL 10 MG TABLET PO SCH (10:18)
[2023-12-13] MEDS: FAMOTIDINE 20 MG TAB PO SCH (10:18)
[2023-12-13] MEDS: LR 60ML/HR IV SCH (10:19)
[2023-12-13] MEDS ORDERED: ePHEDrine sulfate 50 MG/ML AMP IV PRN (10:36)
[2023-12-13] MEDS ORDERED: fentaNYL citrate PF 100 MCG/2 ML VIAL IV PRN (10:36)
[2023-12-13] MEDS ORDERED: ATROPINE SULFATE 0.1 MG/ML 10ML SYR IV PRN (10:36)
[2023-12-13] MEDS ORDERED: ONDANSETRON INJ 2 MG/ML 2 ML VIAL IV PRN ×2 (10:36→13:58)
[2023-12-13] MEDS: TRANEXAMIC ACID 1,000 MG **IV Pre-op IV SCH (11:05)
[2023-12-13] MEDS: ORTHO JOINT ANESTHETIC ONE (12:03)
[2023-12-13] MEDS: ROPIV 0.5% 246mg, Ketorolac 30mg, EPINEPHrine 0.5mg in NSS INFIL SCH (12:35)
[2023-12-13] MEDS: TRANEXAMIC ACID 1,000 MG **IV Intra-op IV SCH (13:00)
--- NOTE | 2023-12-13 13:42 | Operative Report ---
Post Operative Report Pre & Post Diagnosis Operation Date: 12/13/23 11:10 Pre-Op Diagnosis: Left Knee: unilateral primary osteoarthritis Post-Op Diagnosis: Left Knee: unilateral primary osteoarthritis I identified the patient and participated in the time-out.: Yes Procedure Operation Date: 12/13/23 11:10 Actual Procedures p Left Total Knee Arthroplasty(Left) josue and Acticoat superficial wound VAC application- David Dinh MD Surgeon David Dinh MD Director E Learning Carlos ARREDONDO Estimated Blood Loss 5 Findings Consistent with Post-Op Diagnosis Specimens Bone cuts Drains 2 Hemovac Anesthesia Type MAC Spinal Regional Complications none Disposition Disposition: Recovery Room Indications 68-year-old female with left knee end-stage osteoarthritis varus knee [id number] medial compartment and moderate patellofemoral osteoarthritis. Patient had prior successful right knee replacement. Patient now presents for left knee replacement. Description of Procedure Patient taken to the operating room the size under spinal MAC regional block anesthesia. Patient was placed supine on the operating table. A pneumatic tourniquet was placed about the left moderately obese upper thigh. The left lower extremity was prepped and draped in sterile fashion. Knee exam demonstrated varus knee no pseudolaxity full range of motion moderate effusion. The leg was elevated exsanguinated with an Esmarch bandage and pneumatic tourniquet was raised to 300 millimeters of mercury. Skin incised sharply in longitudinal fashion. Subcutaneous flaps elevated. Incision was made through the medial retinaculum extending up in the mid third of the quadriceps tendon and down to the medial tibial tubercle. Intra-articular findings demonstrated medial compartment and patellofemoral osteoarthritis [id number] medial compartment with a chronic root tear posterior horn medial meniscus and degeneration of ACL. The [employer] triathlon total knee arthroplasty system was used. To expose the knee the infrapatellar fat pad was resected. The meniscal remnants and cruciate ligaments were resected. The anterior fat pad over the femur in the area of the location of the anterior flange of the femoral component was resected. The lateral synovial bands were released. The femur was exposed. An intramedullary drill hole was made into the canal. A guide jyoti was placed. Distal femoral cutting guide was adjusted to resect a 5 degree valgus cut with a millimeters distal femur resected. The knee was extended and a subperiosteal peel lateral release was performed around the patella. Patella width was measured and width was reproduced using a freehand cut technique and a 31 x 9 symmetrical patella component. The 3 drill holes were made and the excess lateral facet was beveled off to prevent any impingement. Attention was taken back to the femur which was exposed with retractors and the femoral sizing guide was pinned in position. The drill holes were placed in 3 of external rotation to match the epicondylar axis. The femur sized for a 4 component. The 4-in-1 cutting block was placed and then the anterior posterior and chamfer cuts are made. The tibia was then subluxed. The external tibial cutting guide was adjusted to make a perpendicular cut to the long axis of the tibia below the most deficient bone loss side. Cut was adjusted for slope. A lamina pattern cleaner was used and the flexion extension gaps were balanced. Minor medial releases were required. All posterior osteophytes removed. All meniscal remnants were resected. The tibia exposed and the trial tibial component size 3 was externally rotated in line with the tibial tubercle and pinned in position. The punch for stem was used. The notch cutting device was centered appropriately and the femoral notch cut was made. The femoral trial was inserted. Trial tibial inserts were placed and size 11 gave balanced ligaments through flexion and extension. Patella tracking was assessed. The patella tracked centrally. The trial components were then removed and the orthomix anesthetic cocktail was injected per protocol. The knee was then copiously irrigated with pulsatile lavage saline solution. Final components were then cemented with Refobacin cement. Xperience irrigation placed over metal compoments prior to polyethylene insertion. Final components were triathlon size 4 left posterior stabilized femoral component, size 3 primary tibial baseplate with 11 mm posterior stabilized X.3 polyethylene tibial bearing insert and 31 x 9 mm X.3 polyethylene symmetrical patella. After the cement cured further pulsatile lavage irrigation was then performed with Xperience and 2 Hemovac drains were brought out laterally. The quadriceps tendon and medial retinaculum were closed with figure of 8 #1 Vicryl sutures. The knee was taken through full range of motion and the repair was secure. Knee range of motion was 0 through 130 degrees. The subcutaneous tissues were closed with 2-0 Vicryl sutures. Skin was closed with surgical damien. Josue and Acticoat superficial wound VAC was applied. The patient tolerated the procedure well. Carlos RAREDONDO was my physician customer support assistant who participated as nurseryman assistant and was involved in all aspects of the procedure including patient positioning prepping and draping,leg positioning ,soft tissue retraction and instrument management and participated in the closing and application of superficial wound VAC and will participate in postoperative care of the patient. The patient tolerated the procedure well. I attest to the content of the Intraoperative Record and any orders documented therein. Any exceptions are noted below.
[2023-12-13] MEDS ORDERED: VANCOMYCIN CONSULT ACTIVE PRN (13:58)
[2023-12-13] MEDS ORDERED: MAGNESIUM HYDROXIDE SUSP 30 ML UDC PO PRN (13:58)
[2023-12-13] MEDS ORDERED: predniSONE 10 MG TABLET PO PRN (13:58)
[2023-12-13] MEDS ORDERED: ALBUTEROL HFA 8 GM INHALER INH PRN (13:58)
[2023-12-13] MEDS ORDERED: bisacodyL 10 MG SUPP PR PRN (13:58)
[2023-12-13] MEDS ORDERED: ALUMINUM/MAGNESIUM SUSP 30 ML UDC PO PRN (13:58)
[2023-12-13] MEDS ORDERED: ALBUT/IPRATROP 3MG/0.5MG NEB 3 ML VIAL INH PRN (13:58)
[2023-12-13] MEDS ORDERED: TAMSULOSIN HCL 0.4 MG CAP PO PRN (13:58)
[2023-12-13] MEDS ORDERED: NALOXONE HCL 0.4 MG/1 ML VIAL/CARP IV PRN (13:58)
[2023-12-13] MEDS ORDERED: METOCLOPRAMIDE HCL INJ 5 MG/ML 2 ML VIAL IV PRN (13:58)
--- NOTE | 2023-12-13 14:15 | XRay Report ---
XR knee LT 1 or 2V routine CLINICAL HISTORY: Surgical Post Op TECHNIQUE: 2 views of the left knee were obtained. Comparison: None available at the time of this dictation. FINDINGS: Patient is status post total knee arthroplasty with expected postsurgical changes including soft tiss ue swelling and subcutaneous emphysema. No periarticular lucency or hardware fracture is seen. IMPRESSION: Expected postoperative appearance status post placement of total knee arthroplasty. ACT 112: Negative or not required by law. Electronically signed by: Lan Montanez M.D. 12/13/2023 2:14 PM
--- NOTE | 2023-12-13 14:30 | Anesthesiology Progress Note ---
Date of Service December 13, 2023 Anesthesia Post Procedure Vital Signs Vital Signs: Temp Pulse Pulse Resp BP BP Pulse Ox 12/13/23 14:25 65 18 111/61 94 12/13/23 14:15 97.7 F 63 17 101/61 94 12/13/23 14:05 69 17 102/57 L 96 12/13/23 13:55 69 16 90/60 L 97 12/13/23 13:45 80 22 103/51 L 97 12/13/23 13:38 98.6 F 78 14 95/63 L 96 12/13/23 09:58 98.2 F 73 20 140/74 95 O2 Del Method O2 Flow Rate 12/13/23 14:25 Nasal Cannula 2 12/13/23 14:15 Nasal Cannula 2 12/13/23 14:05 Oxymask 5 12/13/23 13:55 Oxymask 5 12/13/23 13:45 Oxymask 5 12/13/23 13:38 Oxymask 5 12/13/23 09:58 Room Air Transfer of Care Handoff Completed per policy Notes Mental Status: alert / awake / arousable and participated in evaluation Patient Amnestic to Procedure: Yes Nausea / Vomiting: adequately controlled Pain: adequately controlled Airway Patency, RR, SpO2: stable & adequate BP & HR: stable & adequate Hydration State: stable & adequate Neuraxial Anesthesia: was administered and sensory block is resolving Anesthetic Complications: no major complications apparent and Pt Satisfied with anesthetic care
[2023-12-13] MEDS: oxyCODONE HCL IR 5 MG TAB (IMMEDIATE RELEASE) PO PRN (16:11)
[2023-12-13] MEDS: FLUTICASONE/VILANTEROL 100/25MCG 14 PUFFS/INHALER INH SCH (16:14)
--- NOTE | 2023-12-13 16:18 | Hospitalist Consultation ---
Date of Consultation December 13, 2023 Assessment & Plan (1) Unilateral primary osteoarthritis, left knee: S/P Left TKA with Dr. Dinh 12/12 - DVT proh/pain control per primary team - EBL 5 AM CBC and BMP (2) Allergic rhinitis: Also with asthma - continue Zyrtec, Flonase, Singulair, Symbicort (or equivalent) - no wheezing postoperatively, continue IS prn Nebs (3) Sleep apnea: CPAP - patient brought in from home (4) Hypothyroidism: continue synthroid Plan Dispo: medically stable. Thank you for allowing us to participate in the care of this patient,we will continue to follow for AM labs. Supervising Physician Co-Signing Physician Notes I personally saw and examined the patient. I verified all adams points and agree with Sherron Urbina PA-C with the following exceptions and/or additions: 68 year old female POD#0 left total knee arthroplasty. No concerns or questions from the patient. Weaned to room air. No shortness of breath O/E HS RRR, no murmurs, Chest CTAB, Abdo SNT A/P VTE/Pain/bowel management per primary orthopedic team Asthma - controlled, continue her usual inhalers or hospital formulary equivalent EDA - CPAP HS History of Present Illness Reason for Consultation: medical management Attending Physician: David Dinh MD History of Present Illness Tere is a 68F who presented for elective knee surgery. She has a Hx of hypothyroidism, asthma, GERD and hyperlipidemia. Allergies Allergy/AdvReac Type Severity Reaction Status Date / Time mold Allergy Intermediate MOLD TREE Verified 12/13/23 09:46 POLLEN-ASTHMA SYMPTOMS adhesive tape AdvReac Severe SKIN Verified 12/13/23 09:46 IRRITATION -PAPER TAPE OK Penicillins AdvReac Severe COLITIS Verified 12/13/23 09:46 INTERNAL BLEEDING garlic AdvReac Intermediate NAUSEA AND Verified 12/13/23 09:46 VOMITNG lettuce AdvReac Intermediate Verified 12/13/23 09:46 tomato AdvReac Intermediate TOMATO Verified 12/13/23 09:46 SAUCE-GERD watermelon AdvReac Intermediate Verified 12/13/23 09:46 steri strips Allergy Severe Redness of Uncoded 12/13/23 09:46 Skin and inflammation/pus surgical damien Allergy Severe Redness of Uncoded 12/13/23 09:46 Skin and inflammation/pus Home Medications Medication Instructions Recorded Confirmed Type albuterol sulfate 90 mcg/actuation 2 puff inhalation Q6H PRN Wheezing 05/15/19 12/13/23 History aerosol inhaler budesonide-formoterol HFA 160 2 puff inhalation Q12H 05/15/19 12/13/23 History mcg-4.5 mcg/actuation aerosol inhaler (Symbicort) cyclosporine 0.05 % eye drops in a 1 drp ophthalmic (eye) Q12H 05/15/19 12/13/23 History dropperette (Restasis) montelukast 10 mg tablet 10 mg PO PM 05/15/19 12/13/23 History (Singulair) omeprazole 40 mg capsule,delayed 40 mg PO BID 05/15/19 12/13/23 History release simvastatin 20 mg tablet 20 mg PO HS 05/15/19 12/13/23 History aspirin 81 mg tablet,delayed 81 mg PO QAM 04/04/20 12/13/23 History release (Aspir-) diphenhydramine 25 1 tab PO HS PRN Sleep 04/04/20 12/13/23 History mg-acetaminophen 500 mg tablet (Tylenol PM Extra Strength) levothyroxine 100 mcg tablet 100 mcg PO QAM 04/04/20 12/13/23 History L.acidophilus,rhamnosus-B.breve-S.thermophilus 1 tab PO QAM 11/11/23 12/13/23 History 3 billion cell chew tab acetaminophen 325 mg tablet 650 mg PO QID PRN Pain 11/11/23 12/13/23 History cetirizine 10 mg tablet (Zyrtec) 10 mg PO QAM 11/11/23 12/13/23 History cholecalciferol (vitamin D3) 125 125 mcg PO QAM 11/11/23 12/13/23 History mcg (5,000 unit) tablet (Vitamin D3) citalopram 10 mg tablet (Celexa) 10 mg PO QAM 11/11/23 12/13/23 History clindamycin HCl 300 mg capsule 600 mg PO UD PRN dental procedures 11/11/23 12/13/23 History ibuprofen 200 mg tablet 200 mg PO Q6H PRN Pain 11/11/23 12/13/23 History ipratropium 0.5 mg-albuterol 3 mg 3 ml inhalation Q6H PRN sob 11/11/23 12/13/23 History (2.5 mg base)/3 mL nebulization soln meloxicam 7.5 mg tablet 7.5 mg PO BID 11/11/23 12/13/23 History prednisone 10 mg tablet 10 mg PO DAILY PRN bronchitis or 11/11/23 12/13/23 History wheezing tramadol 50 mg tablet 50 mg PO BID PRN Pain 11/11/23 12/13/23 History triamcinolone acetonide 55 55 mcg intranasal BID 11/11/23 12/13/23 History mcg/actuation nasal spray,aerosol acetaminophen 500 mg tablet 1,000 mg (2 x 500 mg) PO Q8 pain 12/14/23 Rx 21 days #126 tabs aspirin 81 mg tablet,delayed 81 mg PO BID 30 days #60 tabs 12/14/23 Rx release oxycodone 5 mg tablet 5 - 10 mg (1 - 2 x 5 mg) PO Q6H 12/14/23 Rx PRN pain #30 tabs Patient History Medical History KUMAR (dyspnea on exertion) Chronic with asthma- stable per patient No LE edema Does have ECHO scheduled by PCP 12/06/23 Dizziness - only occurs when laying down at night- present x months (lasts seconds)- then resolves - Scheduled for upcoming ECHO 12/06/23 (following with PCP) Allergic rhinitis Hx of migraines rare / 1-2 year Sleep apnea CPAP compliant Hiatal hernia GERD (gastroesophageal reflux disease) controlled and stable Hypothyroidism Asthma uses PRN inh 2-3 x per month on average - well controlled and stable Hyperlipidemia Surgical History History of total replacement of both shoulder joints History of bilateral carpal tunnel release History of total right hip replacement History of esophagogastroduodenoscopy (EGD) History of colonoscopy History of right knee joint replacement 06/12/2019 [facility] History of hand surgery x 3 left and right hand, right trigger finger release Exploratory laparotomy scar MULTIPLE RELATED TO ENDOMETRIOSIS History of appendectomy History of hysterectomy TOTAL History of arthroscopy R/L KNEE- MENISCUS REPAIR H/O sinus surgery MULTIPLE History of tonsillectomy Family History Mother , CHF Family history of diabetes mellitus Father TIA (transient ischemic attack) Other No family history of adverse response to anesthesia Denies family history of Myocardial infarction Social History Smoking Status: Never smoker Second Hand Exposure: No; Do You Dip or Chew Tobacco: No; Tobacco Cessation Education Requested by Patient: No Hx Alcohol Use: No Hx Substance Use: No Preferred Language: Armenian Communication Ability: Effective 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 Beliefs That Will Affect Care: None marital status: / Current Living Situation: Alone Other Information That Helps Us Care for You: No Feels Safe at Home: Yes Safety Concerns: Feels Safe At This Time Assistive Devices: CPAP, Glasses and Other Assistive Devices Comment: partial dentures, not worn regularly Review of Systems Review of Systems: All systems reviewed & are unremarkable except as noted in Subjective Physical Exam Physical Exam: General: NAD, VS as above Resp: normal respiratory effort, lungs clear to auscultation - no wheezing CV: RRR, no murmur, Abd: normal bowel sounds, non tender, no hepatosplenomegaly Extremities: yuki wrap present, distal sensation in tact, able to wiggle toes. Drain in place Neuro: A&O x3, Skin: intact, no lesions noted Results & Data Results & Data Vital Signs (Past 12 Hours) Vital Signs Temp Pulse Pulse Resp BP BP Pulse Ox 12/13/23 15:52 36.5 C 84 16 102/65 98 12/13/23 15:24 36.7 C 84 16 113/66 97 12/13/23 14:50 12/13/23 14:50 36.7 C 78 16 106/67 93 12/13/23 14:35 75 22 102/55 L 96 12/13/23 14:25 65 18 111/61 94 12/13/23 14:15 36.5 C 63 17 101/61 94 12/13/23 14:05 69 17 102/57 L 96 12/13/23 13:55 69 16 90/60 L 97 12/13/23 13:45 80 22 103/51 L 97 12/13/23 13:38 37 C 78 14 95/63 L 96 12/13/23 09:58 36.8 C 73 20 140/74 95 O2 Del Method O2 Flow Rate 12/13/23 15:52 Nasal Cannula 3 12/13/23 15:24 Nasal Cannula 3 12/13/23 14:50 Nasal Cannula 2 12/13/23 14:50 Nasal Cannula 2 12/13/23 14:35 Nasal Cannula 2 12/13/23 14:25 Nasal Cannula 2 12/13/23 14:15 Nasal Cannula 2 12/13/23 14:05 Oxymask 5 12/13/23 13:55 Oxymask 5 12/13/23 13:45 Oxymask 5 12/13/23 13:38 Oxymask 5 12/13/23 09:58 Room Air PG Care Time/CCT Total # of Minutes Spent Total Time Spent with Patient: Total time spent is greater than 50% in coordination of care (as documented) at patient's floor/unit and/or counseling patient: Coding Level of Care Code 39680 IN/OBS CONSULT LVL 3,45M Diagnoses Unilateral primary osteoarthritis, left knee M17.12 Allergic rhinitis J30.9 Sleep apnea G47.30 Hypothyroidism E03.9
[2023-12-13] MEDS: ARTIFICIAL TEARS OP SCH (17:22)
[2023-12-13] MEDS: HYDROmorphone INJ 0.5 MG/0.5 ML SYR IV PRN (17:25)
[2023-12-13] MEDS: SODIUM CHLORIDE 0.9% 1,000 ML IV SCH (17:26)
[2023-12-13] MEDS: TRANEXAMIC ACID / 0.7% NACL 1,000 MG/100 ML BAG IV SCH (19:30)
[2023-12-13] MEDS: PANTOprazole 40 MG TAB PO SCH (21:04)
[2023-12-13] MEDS: FLUTICASONE PROPIONATE NA SPR 16 GM BTL NAE SCH (21:04)
[2023-12-13] MEDS: ASPIRIN 81 MG ECTAB PO SCH (21:04)
[2023-12-13] MEDS: SIMVASTATIN 20 MG TAB PO SCH (21:05)
[2023-12-13] MEDS: MONTELUKAST SODIUM 10 MG TABLET PO SCH (21:05)
[2023-12-13] MEDS: SENNA 8.6 MG TAB PO SCH (21:05)
[2023-12-13] MEDS: DOCUSATE SODIUM 100 MG CAP PO SCH (21:05)
[2023-12-13] MEDS: diphenhydrAMINE Capsule 25 MG CAP PO PRN (22:05)
[2023-12-14] MEDS: KETOROLAC TROMETHAMINE 15 MG/ML VIAL IV PRN (03:06)
[2023-12-14] MEDS: LEVOTHYROXINE SODIUM 100 MCG TABLET PO SCH (06:10)
[2023-12-14 06:25] LABS: Hematocrit (blood only) 34.3 % (37.0-47.0); Hemoglobin 11.3 g/dl (12.0-16.0); Mean Corpuscular Hemoglobin 30.3 pg (25.0-34.0); Mean Corpuscular Hgb Conc 32.9 g/dL (32.0-36.0); Mean Platelet Volume 9.9 fL (9.4-12.4); Platelet Count 286 K/uL (130-400); RDW Coefficient of Variation 12.6 % (11.5-14.5); RDW Standard Deviation 42.9 fL (36.4-46.3); Red Blood Count 3.73 M/uL (4.20-5.40); White Blood Count 17.59 K/ul (4.8-10.8)
[2023-12-14 06:46] LABS: BUN Creatinine Ratio 23.9 (10-20); Creatinine Clr Calc Pharmacy 77.9 ml/min; Est GFR (African American) 105.4 ml/min; Potassium 4.3 mmol/L (3.5-5.1)
[2023-12-14] MEDS: CETIRIZINE HCL 10 MG TABLET PO SCH (07:41)
[2023-12-14] MEDS: CITALOPRAM 20 MG TAB PO SCH (07:41)
[2023-12-14] MEDS: CHOLECALCIFEROL 125 MCG (5,000 UNITS) TAB PO SCH (07:42)
[2023-12-14] MEDS: MULTIVITAMIN TAB PO SCH (07:42)
[2023-12-14] MEDS: ADVANCED PROBIOTIC 625 MG CAPSULE PO SCH (07:42)
--- NOTE | 2023-12-14 07:55 | Orthopedic Progress Note ---
Date of Service December 14, 2023 Assessment & Plan (1) Status post left knee replacement: Plan: Patient has home nursing set up and we can leave the drain and have the home nurses pull out tomorrow. Patient does not feel well with Celebrex so we will going to stop the Celebrex and put her on meloxicam which she normally takes continue with aspirin for DVT prophylaxis and Oxy codon for pain management. Patient has home physical therapy set up. Patient can be discharged today after PT/OT. Admission and Anticipated Discharge Date Admission Date: December 13, 2023 Subjective Doing well minimal pain. Review of Systems Review of Systems: Unremarkable Physical Exam Physical Exam: Independent straight leg raise without difficulty circulation sensorimotor exam intact. Dressings dry and intact. Drainage decreasing in Hemovac. Results & Data Vital Signs (Past 12 Hours) Vital Signs Temp Pulse Resp BP Pulse Ox O2 Del Method 12/14/23 07:14 37.0 C 90 18 106/65 94 Room Air 12/14/23 03:09 36.9 C 88 16 107/70 94 Room Air 12/13/23 22:56 85 18 105/65 95 Room Air 12/13/23 22:48 CPAP 12/13/23 22:38 36.7 C 92 H 18 99/62 L 93 Room Air Diagnostic Findings Well aligned left knee replacement
--- NOTE | 2023-12-14 12:16 | Hospitalist Progress Note ---
Date of Service December 14, 2023 Assessment & Plan (1) Unilateral primary osteoarthritis, left knee: Plan: S/P Left TKA with Dr. Dinh 12/12 - DVT proh/pain control per primary team - EBL 5 Hemoglobin 11.3, it was 13.2 prior to surgeryacute blood loss anemia versus dilutional overall doing well plan to discharge home today per primary team (2) Allergic rhinitis: Plan: Also with asthma - continue Zyrtec, Flonase, Singulair, Symbicort (or equivalent) - no wheezing postoperatively, continue IS prn Nebs (3) Sleep apnea: Plan: CPAP - patient brought in from home (4) Hypothyroidism: Plan: continue synthroid Plan Dispo: medically stable. Thank you for allowing us to participate in the care of this patient,we will sign off. Admission and Anticipated Discharge Date Admission Date: December 13, 2023 Subjective Patient sitting on the side of the bed - reports feeling well. Reports plan is to go home with drain and have it removed with home health tomorrow good appetite and passing gas since surgery. Review of Systems Review of Systems: All systems reviewed & are unremarkable except as noted in Subjective Physical Exam Physical Exam: General: NAD, VS as above Resp: normal respiratory effort, lungs clear to auscultation - no wheezing CV: RRR, no murmur, Abd: normal bowel sounds, non tender, no hepatosplenomegaly Extremities: yuki wrap present, distal sensation in tact, able to wiggle toes. Drain in place Neuro: A&O x3, Skin: intact, no lesions noted Results & Data Results & Data Vital Signs (Past 12 Hours) Vital Signs Temp Pulse Resp BP Pulse Ox O2 Del Method 12/14/23 07:14 37.0 C 90 18 106/65 94 Room Air 12/14/23 03:09 36.9 C 88 16 107/70 94 Room Air Laboratory Results CBC and chemsitry reviewed PG Care Time/CCT Total # of Minutes Spent Total Time Spent with Patient: Total time spent is greater than 50% in coordination of care (as documented) at patient's floor/unit and/or counseling patient: Coding Level of Care Code 49195 SUB INP/OBS CARE 2/35MIN Diagnoses Unilateral primary osteoarthritis, left knee M17.12 Allergic rhinitis J30.9 Sleep apnea G47.30 Hypothyroidism E03.9
== END 2023-12-14 11:48 | disposition home health service (06) ==
LOC: 3E 09:10 → ASU 09:10

== ENCOUNTER 2024-02-16 09:19 | Inpatient (IN) ==
--- NOTE | 2024-02-09 09:13 | Anesthesiology Consultation ---
Date of Service February 09, 2024 Assessment & Plan Chart Review Chart Review: Acceptable Risk for Surgery and Patient NOT seen in Pre Admission Testing Consults Requested none History Surgery Operation Date: 02/16/24 09:00 Proposed Procedures p Left Knee Medial Retinacular Repair, - David Dinh MD s Possible Poly Exchange - David Dinh MD Height/Weight Height: 4 ft 11 in Weight: 83.915 kg Allergies Allergy/AdvReac Type Severity Reaction Status Date / Time mold Allergy Intermediate MOLD TREE Verified 02/09/24 08:26 POLLEN-ASTHMA SYMPTOMS adhesive tape AdvReac Severe SKIN Verified 02/09/24 08:26 IRRITATION -PAPER TAPE OK Penicillins AdvReac Severe COLITIS Verified 02/09/24 08:26 INTERNAL BLEEDING garlic AdvReac Intermediate NAUSEA AND Verified 02/09/24 08:26 VOMITNG lettuce AdvReac Intermediate Verified 02/09/24 08:26 tomato AdvReac Intermediate TOMATO Verified 02/09/24 08:26 SAUCE-GERD watermelon AdvReac Intermediate Verified 02/09/24 08:26 steri strips Allergy Severe Redness of Uncoded 02/09/24 08:26 Skin and inflammation/pus surgical damien Allergy Severe Redness of Uncoded 02/09/24 08:26 Skin and inflammation/pus Medications Home Medications Medication Instructions Recorded Confirmed Last Taken albuterol sulfate 90 mcg/actuation 2 puff inhalation Q6H PRN Wheezing 05/15/19 02/09/24 12/12/23 22:00 aerosol inhaler budesonide-formoterol HFA 160 2 puff inhalation Q12H 05/15/19 02/09/24 12/13/23 07:30 mcg-4.5 mcg/actuation aerosol inhaler (Symbicort) cyclosporine 0.05 % eye drops in a 1 drp ophthalmic (eye) Q12H 05/15/19 02/09/24 12/13/23 07:30 dropperette (Restasis) montelukast 10 mg tablet 10 mg PO PM 05/15/19 02/09/24 12/12/23 22:00 (Singulair) omeprazole 40 mg capsule,delayed 40 mg PO BID 05/15/19 02/09/24 12/13/23 07:30 release simvastatin 20 mg tablet 20 mg PO HS 10/02/09/24 12/12/23 22:00 levothyroxine 100 mcg tablet 100 mcg PO QAM 04/04/20 02/09/24 12/13/23 07:30 L.acidophilus,rhamnosus-B.breve-S.thermophilus 1 tab PO QAM 11/11/23 02/09/24 11/01/23 3 billion cell chew tab cetirizine 10 mg tablet (Zyrtec) 10 mg PO QAM 11/11/23 02/09/24 12/12/23 07:30 citalopram 10 mg tablet (Celexa) 10 mg PO QAM 11/11/23 02/09/24 12/13/23 07:30 clindamycin HCl 300 mg capsule 600 mg PO UD PRN dental procedures 11/11/23 02/09/24 10/04/23 ipratropium 0.5 mg-albuterol 3 mg 3 ml inhalation Q6H PRN sob 11/11/23 02/09/24 06/22/23 (2.5 mg base)/3 mL nebulization soln meloxicam 7.5 mg tablet 7.5 mg PO BID 11/11/23 02/09/24 12/12/23 22:00 prednisone 10 mg tablet 10 mg PO DAILY PRN bronchitis or 11/11/23 02/09/24 11/08/23 wheezing triamcinolone acetonide 55 55 mcg intranasal BID 11/11/23 02/09/24 12/13/23 07:30 mcg/actuation nasal spray,aerosol oxycodone 5 mg tablet 5 - 10 mg (1 - 2 x 5 mg) PO Q6H 12/14/23 02/09/24 Unknown PRN pain #30 tabs aspirin 81 mg capsule 81 mg PO DAILY 02/09/24 02/09/24 Unknown Past Medical History Medical History KUMAR (dyspnea on exertion) Chronic with asthma- stable per patient No LE edema Does have ECHO scheduled by PCP 12/06/23 Allergic rhinitis Hx of migraines rare / 1-2 year Sleep apnea CPAP compliant Hiatal hernia GERD (gastroesophageal reflux disease) controlled and stable Hypothyroidism Asthma uses PRN inh 2-3 x per month on average - well controlled and stable Hyperlipidemia Past Family History Family History Mother , CHF Family history of diabetes mellitus Father TIA (transient ischemic attack) Other No family history of adverse response to anesthesia Denies family history of Myocardial infarction Past Surgical History Surgical History History of total left knee replacement (11/2023) [facility] History of total replacement of both shoulder joints History of bilateral carpal tunnel release History of total right hip replacement History of esophagogastroduodenoscopy (EGD) History of colonoscopy History of right knee joint replacement 06/12/2019 [facility] History of hand surgery x 3 left and right hand, right trigger finger release Exploratory laparotomy scar MULTIPLE RELATED TO ENDOMETRIOSIS History of appendectomy History of hysterectomy TOTAL History of arthroscopy R/L KNEE- MENISCUS REPAIR H/O sinus surgery MULTIPLE History of tonsillectomy Social History Smoking Status: Never smoker Do You Dip or Chew Tobacco: No Hx Alcohol Use: No Hx Substance Use: No substance use type: does not use Testing Laboratory Results Laboratory Tests 04/09/20 02/08/24 02/08/24 09:12 15:32 15:32 WBC 6.43 Hgb 12.0 Hct 37.5 Plt Count 327 PT 10.5 INR 1.0 APTT 26 Sodium 140 Potassium 4.2 Chloride 105 Carbon Dioxide 26 BUN 18 Creatinine 0.74 Glucose 92 Hemoglobin A1c 5.4 Electrocardiogram Date: 11/24/23 Findings: + NSR @ Echocardiogram Date: 12/06/23 EF: 55-60 LV Function: normal
--- NOTE | 2024-02-15 06:43 | History & Physical Report ---
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 Serum and knee aspirate do not suggest any infection. Recommendation is to proceed with a revision repair of the retinacular tissue using suture anchors in the patella and nonabsorbable sutures. Will go slower on the postoperative rehab. Since patient has had reactions to adhesive Steri-Strips and recent skin irritation and reaction to damien last procedure best option is to use nylon sutures for closure of the skin. Will use collagen skin treatment early in postoperative period. Encounter type: subsequent encounter Qualified Code(s): S86.812D - Strain of other muscle(s) and tendon(s) at lower leg level, left leg, subsequent encounter (2) Status post left knee replacement: History of Present Illness Chief Complaint: Left knee pain and weakness Primary Care Provider: Scotty Mantilla 68-year-old female status post knee replacement 12/13/2023. Had previous knee replacement by myself 2019 uneventful recovery with excellent outcome. Similar type knee replacement was performed similar fashion to her left knee however she had significant postoperative healing issues with staple irritation and skin edge necrosis. This required skin debridement and wound management eventually topical collagen to get the wound to heal. Despite the wound healing problems patient been very active postoperatively. As of 2 weeks postop she was not using any ambulatory support and had normal gait. Follow-up x-ray demonstrated increased lateral patellar tilt and patient had some sense of weakness of her knee and some ongoing low-grade pain. Patient denies headaches, sweats, fevers, chills, double vision, blurred vision, cough, sore throat, dysphagia, chest pain, sob, wheezing, n/v/d/c, numbness, tingling, fatigue, urinary symptoms, mood disorders. ROS positive for sleep ap sydnee with use of CPAP, gets some shortness of breath with activity or walking up a hill. Has arthritic issues in the spine. Has acid reflux with hiatal hernia. Allergies Allergy/AdvReac Type Severity Reaction Status Date / Time mold Allergy Intermediate MOLD TREE Verified 02/09/24 08:26 POLLEN-ASTHMA SYMPTOMS adhesive tape AdvReac Severe SKIN Verified 02/09/24 08:26 IRRITATION -PAPER TAPE OK Penicillins AdvReac Severe COLITIS Verified 02/09/24 08:26 INTERNAL BLEEDING garlic AdvReac Intermediate NAUSEA AND Verified 02/09/24 08:26 VOMITNG lettuce AdvReac Intermediate Verified 02/09/24 08:26 tomato AdvReac Intermediate TOMATO Verified 02/09/24 08:26 SAUCE-GERD watermelon AdvReac Intermediate Verified 02/09/24 08:26 steri strips Allergy Severe Redness of Uncoded 02/09/24 08:26 Skin and inflammation/pus surgical damien Allergy Severe Redness of Uncoded 02/09/24 08:26 Skin and inflammation/pus Home Medications Medication Instructions Recorded Confirmed Type albuterol sulfate 90 mcg/actuation 2 puff inhalation Q6H PRN Wheezing 05/15/19 02/09/24 History aerosol inhaler budesonide-formoterol HFA 160 2 puff inhalation Q12H 05/15/19 02/09/24 History mcg-4.5 mcg/actuation aerosol inhaler (Symbicort) cyclosporine 0.05 % eye drops in a 1 drp ophthalmic (eye) Q12H 05/15/19 02/09/24 History dropperette (Restasis) montelukast 10 mg tablet 10 mg PO PM 05/15/19 02/09/24 History (Singulair) omeprazole 40 mg capsule,delayed 40 mg PO BID 05/15/19 02/09/24 History release simvastatin 20 mg tablet 20 mg PO HS 05/15/19 02/09/24 History levothyroxine 100 mcg tablet 100 mcg PO QAM 04/04/20 02/09/24 History L.acidophilus,rhamnosus-B.breve-S.thermophilus 1 tab PO QAM 11/11/23 02/09/24 History 3 billion cell chew tab cetirizine 10 mg tablet (Zyrtec) 10 mg PO QAM 11/11/23 02/09/24 History citalopram 10 mg tablet (Celexa) 10 mg PO QAM 11/11/23 02/09/24 History clindamycin HCl 300 mg capsule 600 mg PO UD PRN dental procedures 11/11/23 02/09/24 History ipratropium 0.5 mg-albuterol 3 mg 3 ml inhalation Q6H PRN sob 11/11/23 02/09/24 History (2.5 mg base)/3 mL nebulization soln meloxicam 7.5 mg tablet 7.5 mg PO BID 11/11/23 02/09/24 History prednisone 10 mg tablet 10 mg PO DAILY PRN bronchitis or 11/11/23 02/09/24 History wheezing triamcinolone acetonide 55 55 mcg intranasal BID 11/11/23 02/09/24 History mcg/actuation nasal spray,aerosol oxycodone 5 mg tablet 5 - 10 mg (1 - 2 x 5 mg) PO Q6H 12/14/23 02/09/24 Rx PRN pain #30 tabs aspirin 81 mg capsule 81 mg PO DAILY 02/09/24 02/09/24 History Past Med/Surg History Problem List (Updated 02/15/24 @ 06:38 by David Dinh MD) 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 Status post left knee replacement Unilateral primary osteoarthritis, left knee Arthritis of right shoulder region Allergic rhinitis Knee pain Obesity Encounter for pre-operative examination DJD of left shoulder Medical History KUMAR (dyspnea on exertion) Chronic with asthma- stable per patient No LE edema Does have ECHO scheduled by PCP 12/06/23 Allergic rhinitis Hx of migraines rare / 1-2 year Sleep apnea CPAP compliant Hiatal hernia GERD (gastroesophageal reflux disease) controlled and stable Hypothyroidism Asthma uses PRN inh 2-3 x per month on average - well controlled and stable Hyperlipidemia Surgical History History of total left knee replacement (11/2023) [facility] History of total replacement of both shoulder joints History of bilateral carpal tunnel release History of total right hip replacement History of esophagogastroduodenoscopy (EGD) History of colonoscopy History of right knee joint replacement 06/12/2019 [facility] History of hand surgery x 3 left and right hand, right trigger finger release Exploratory laparotomy scar MULTIPLE RELATED TO ENDOMETRIOSIS History of appendectomy History of hysterectomy TOTAL History of arthroscopy R/L KNEE- MENISCUS REPAIR H/O sinus surgery MULTIPLE History of tonsillectomy Family History Mother , CHF Family history of diabetes mellitus Father TIA (transient ischemic attack) Other No family history of adverse response to anesthesia Denies family history of Myocardial infarction Social History Smoking Status: Never smoker Second Hand Exposure: No; Do You Dip or Chew Tobacco: No; Tobacco Cessation Education Requested by Patient: No Hx Alcohol Use: No Hx Substance Use: No Preferred Language: [place] Communication Ability: Effective Weatherization Coordinator Required: No Beliefs That Will Affect Care: None marital status: / Current Living Situation: Alone Other Information That Helps Us Care for You: No Feels Safe at Home: Yes Safety Concerns: Feels Safe At This Time Assistive Devices: CPAP, Denture - Upper, Denture - Lower, Glasses and Nebulizer Review of Systems All systems reviewed & are unremarkable except as noted in HPI & below Physical Exam Constitutional: WD/WN, vitals as above Respiratory: normal respiratory effort; no respiratory distress Cardiovascular: Rate/Rhythm: regular rate and regular rhythm Musculoskeletal: Left knee 0 to 130 degrees range of motion. Mild to moderate knee effusion. Defect in medial retinaculum consistent with failed medial retinacular repair, increase medial retinacular restraint with lateral patellar tilt. Distal neurological exam intact. Circulation normal. No knee instability with varus valgus stress or posterior. Incision healed with hypertrophic irregular scar. No drainage. No erythema. Skin: no rashes, warm and dry Neurologic: normal touch/pain/proprioception Psychiatric: A+Ox3, euthymic affect Results & Data Laboratory Results Knee aspirate demonstrates negative alpha defense and CRP 0.8 which is normal total nucleated cell count 365 which is normal, 47.7% neutrophils. Negative antimicrobial panel. Negative crystals. Serum CRP ESR white cell count also normal.
[~2024-02-16 09:19] MED LIST changes: -BUPIVACAINE 0.5 % 5 MG/1 ML PF 10ML VIAL ONE
[2024-02-16] MEDS: LR 15ML/HR IV SCH (09:45)
[2024-02-16] MEDS: ACETAMINOPHEN 500 MG TAB PO SCH ×2 (09:46→22:01)
[2024-02-16] MEDS: FAMOTIDINE 20 MG TAB PO SCH (09:46)
[2024-02-16] MEDS: dexAMETHasone**PF** 10 MG/ML VIAL IV SCH (09:46)
[2024-02-16] MEDS: METOCLOPRAMIDE HCL 10 MG TABLET PO SCH (09:47)
[2024-02-16] MEDS: LR 60ML/HR IV SCH (09:47)
[2024-02-16] MEDS: CeleBREX 200 MG CAP PO SCH (09:47)
[2024-02-16] MEDS: GABAPENTIN 300 MG CAP PO SCH (09:47)
[2024-02-16] MEDS: VANCOMYCIN HCL 1,250 MG in SODIUM CHLORIDE 0.9% 250 ML IV SCH (09:48)
[2024-02-16] MEDS ORDERED: MIDAZOLAM HCL 1 MG/ML 2ML VIAL ONE ×2 (12:08)
[2024-02-16] MEDS ORDERED: ONDANSETRON INJ 2 MG/ML 2 ML VIAL IV PRN ×2 (12:11→16:39)
[2024-02-16] MEDS ORDERED: KETOROLAC 30 MG/ML VIAL IV PRN (12:11)
[2024-02-16] MEDS ORDERED: fentaNYL citrate PF 100 MCG/2 ML VIAL IV PRN (12:11)
[2024-02-16] MEDS ORDERED: ePHEDrine sulfate 50 MG/ML AMP IV PRN (12:11)
[2024-02-16] MEDS ORDERED: ATROPINE SULFATE 0.1 MG/ML 10ML SYR IV PRN (12:11)
--- NOTE | 2024-02-16 12:18 | History & Physical Bridge Note ---
Date of Service February 16, 2024 History & Physical Bridge Note I have examined the patient, reviewed the History & Physical and in the interval since the performance of the History & Physical I have noted the following changes of clinical significance: no changes noted
[2024-02-16] MEDS ORDERED: PROPOFOL IV EMULSION 10 MG/ML 20 ML VIAL IV ONE (13:29)
[2024-02-16] MEDS ORDERED: LIDOCAINE 2% 2 ML VIAL/AMP(20MG/ML) INFIL ONE (13:29)
[2024-02-16] MEDS: TRANEXAMIC ACID 1,000 MG **IV Intra-op IV SCH (14:14)
--- NOTE | 2024-02-16 15:27 | Operative Report ---
Post Operative Report Pre & Post Diagnosis Operation Date: 02/16/24 11:30 Pre-Op Diagnosis: Status Post Total Knee Arthroplasty ,Traumatic medial retinacular tear, hypertrophic scar Post-Op Diagnosis: Status Post Total Knee Arthroplasty ,Traumatic medial retinacular tear, hypertrophic scar, knee synovitis I identified the patient and participated in the time-out.: Yes Procedure Operation Date: 02/16/24 11:30 Actual Procedures p Left Knee Medial Retinacular and quad tendon repair(Left), irrigation debridement knee joint. Debridement hypertrophic scar skin incision- David Dinh MD Surgeon David Dinh MD Charging Car Operator Carlos ARREDONDO Estimated Blood Loss 10 Findings Consistent with Post-Op Diagnosis Specimens Swab culture knee joint fluid Drains None Anesthesia Type MAC Spinal Regional Complications none Disposition Disposition: Recovery Room Indications 68-year-old female status post knee replacement 12/13/2023. Patient did excellent with range of motion postop and was likely more active than typical early in the postoperative period. She did have some issues with skin edge necrosis and wound healing issues which were corrected with debridement in the office and collagen application to the incisional area. Wound healed with hypertrophic scar but she had a defect in her medial retinaculum and on postoperative x-rays she had increased lateral patellar tilt consistent with medial retinacular failed repair. Patient did have full knee extension with no extensor lag but lacks medial retinacular restraint with defect and increased patellar tilt. Synovasure testing negative serum and synovial white cell count normal, synovial CRP and serum CRP negative ESR normal. Alpha defense and negative antigens none in knee joint fluid. Cultures negative for any growth. X-rays demonstrate well-fixed's satisfactory aligned total knee replacement aside from the patella with increased tilt. Patient has a Leola triathlon total knee replacement. Description of Procedure Patient was taken to the operating anesthetized under spinal regional block anesthetic placed by the operating table. Pneumatic tourniquet is left upper thigh. Left lower extremity was prepped and draped in sterile fashion. ChloraPrep was used. Leg was elevated exsanguinated and the pneumatic tourniquet raised to 325 mm. On the incision was made longitudinally through her hypertrophic old scar over the patella there was fluid and a large defect that extended right into the joint. This went down to the level of the tibial implant bone interface and proximal to the lower quadriceps tendon which was split in the medial third from previous exposure. There was edematous tissue from the synovial fluid exiting into the prepatellar bursa areas of some of the fat was edematous there was some scar tissue there. There was no evidence of gross infection. I did get a deep culture. There was some intra-articular fibrinous type synovial tissue in the notch and around the proximal tibia and lateral gutter area. All these areas were debrided. The knee was irrigated copiously with 3 L of pulsatile lavage saline solution. The tibial polyethylene was normal the implants were stable well-fixed patella was stable well-fixed. Edges of the medial retinaculum which was thickened from retraction and the quadriceps tendon proximally were debrided sharply with a 10 blade. The edge of the patella tendon and along the medial retinaculum that was still attached to the patella was debrided and the bone was exposed along the medial patella. At this point I did a 3-minute Betadine soak. After that the Q fix anchors were placed into the medial patella. Two 1.8 mm Q fix anchors were placed 1 loaded with 0 ultra braid and the other anchor loaded with mini tape ultra tape and ultra braid suture. Each of the anchors had an additional 0 ultra braid suture within the anchor. The Betadine was irrigated out of the joint with more pulsatile lavage saline solution. The medial retinaculum was repaired with the sutures from the Q fix anchors. Mini tape was placed in horizontal mattress fashion into the medial retinaculum. The serous sutures that were additional were passed in simple fashion to reapproximate retinaculum and take tension off the repair. The ultra braid sutures from the other Q fix anchor were placed in a modified Dimas-Andrés technique with 1 horizontal and 1 vertical placed suture. Was securely repaired the medial retinaculum to the medial and superior medial patella. Additional #2 FiberWire sutures were utilized at the distal quad tendon and the patella tendon anterior to the tibial polyethylene. I also used another #2 FiberWire [id number] suture at the apex of the split in the quad tendon. I then used a running 0 STRATAFIX suture which is a running locking suture placed from the apex superiorly and the quad tendon down to the inferior pole of the patella level. I then completed the patella tendon medial retinaculum portion of the repair with interrupted #1 Vicryl sutures. The knee was then taken through range of motion and the repair was secure 0 through 90 degrees motion after which there was some tension on the repair with further flexion. After further irrigation the incision was addressed and several areas of the hypertrophic scar were excised sharply with a scalpel. There appeared to be plenty of flexibility the skin flaps to repair the skin without any tension. This was closed with 2-0 Vicryl in the subcutaneous tissue and then 3-0 nylon vertical mattress sutures and the skin with good closure. Xeroform sterile gauze dressings and an Kwabena wrap were applied and the tourniquet was let down and circulation was restored and normal. Carlos ARREDONDO assisted me as parking assistant with leg positioning soft tissue retraction and assisted in the subcutaneous and skin closure and dressings and placement of the knee immobilizer. He will participate in postop care the patient. I attest to the content of the Intraoperative Record and any orders documented therein. Any exceptions are noted below.
--- NOTE | 2024-02-16 15:31 | Anesthesiology Progress Note ---
Date of Service February 16, 2024 Anesthesia Post Procedure Vital Signs Vital Signs: Temp Pulse Pulse Resp BP Pulse Ox O2 Del Method 02/16/24 15:20 82 14 104/78 95 Room Air 02/16/24 15:11 37.4 C 78 19 101/56 L 96 Room Air 02/16/24 11:00 76 20 114/68 97 Room Air 02/16/24 09:44 36.6 C 92 H 20 136/104 H 97 Room Air Pain Intensity Left Knee: Pain Intensity: 7 Transfer of Care Handoff Completed per policy Notes Mental Status: alert / awake / arousable Patient Amnestic to Procedure: Yes Nausea / Vomiting: adequately controlled Pain: adequately controlled Airway Patency, RR, SpO2: stable & adequate BP & HR: stable & adequate Hydration State: stable & adequate Neuraxial Anesthesia: was administered and sensory block is resolving Anesthetic Complications: no major complications apparent
--- NOTE | 2024-02-16 16:06 | XRay Report ---
XR knee LT 1 or 2V routine CLINICAL HISTORY: Surgical Post Op TECHNIQUE: 2 views of the left knee were obtained. Comparison: Comparison is made to knee radiograph 12/13/2023 FINDINGS: Patient is status post total knee arthroplasty with expected postsurgical changes including soft tiss ue swelling and subcutaneous emphysema. No periarticular lucency or hardware fracture is seen. IMPRESSION: Expected postoperative appearance. ACT 112: Negative or not required by law. Electronically signed by: Lan Montanez M.D. 02/16/2024 4:05 PM
[2024-02-16] MEDS ORDERED: METOCLOPRAMIDE HCL INJ 5 MG/ML 2 ML VIAL IV PRN (16:39)
[2024-02-16] MEDS ORDERED: ALBUTEROL HFA 8 GM INHALER INH PRN (16:39)
[2024-02-16] MEDS ORDERED: predniSONE 10 MG TABLET PO PRN (16:39)
[2024-02-16] MEDS ORDERED: ALUMINUM/MAGNESIUM SUSP 30 ML UDC PO PRN (16:39)
[2024-02-16] MEDS ORDERED: bisacodyL 10 MG SUPP PR PRN (16:39)
[2024-02-16] MEDS ORDERED: NALOXONE HCL 0.4 MG/1 ML VIAL/CARP IV PRN (16:39)
[2024-02-16] MEDS ORDERED: ALBUT/IPRATROP 3MG/0.5MG NEB 3 ML VIAL INH PRN (16:39)
[2024-02-16] MEDS ORDERED: MAGNESIUM HYDROXIDE SUSP 30 ML UDC PO PRN (16:39)
[2024-02-16] MEDS ORDERED: VANCOMYCIN CONSULT ACTIVE PRN (16:39)
[2024-02-16] MEDS: HYDROmorphone INJ 0.5 MG/0.5 ML SYR IV PRN (17:10)
[2024-02-16] MEDS: SODIUM CHLORIDE 0.9% 1,000 ML IV SCH (17:10)
[2024-02-16] MEDS ORDERED: ARTIFICIAL TEARS OP PRN (17:14)
[2024-02-16] MEDS: TRANEXAMIC ACID 1,000 MG **IV Pre-op IV SCH (17:28)
[2024-02-16] MEDS: KETOROLAC TROMETHAMINE 15 MG/ML VIAL IV PRN (18:07)
--- NOTE | 2024-02-16 18:49 | Hospitalist Consultation ---
Date of Consultation February 16, 2024 Assessment & Plan (1) 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: Patient is currently postop day #0 status post left knee medial retinacular and quadriceps tendon repair, irrigation debridement of the left knee joint, and debridement of hypertrophic scar skin incision by Dr. Ortiz Pain control, perioperative antibiotics, DVT prophylaxis, and IV fluids per the primary team I stopped the patient's normal saline infusion due to likely infiltration of her right forearm IV site and alerted her nurse Agree with a.m. labs tomorrow, we will follow Agree with starting twice daily aspirin for DVT prophylaxis this evening as long as she is without signs of postoperative bleeding Please reach out with any further questions or concerns Medicine will continue to follow (2) Sleep apnea: Order has been placed for patient to use her own CPAP machine which she has brought with her (3) Hypothyroidism: Continue with levothyroxine (4) Asthma: Currently stable on room air, in no respiratory distress, with clear lung villasenor Continue incentive spirometry, albuterol Plan The patient was discussed with Dr. Escobar at the time of the consult Supervising Physician Co-Signing Physician Notes I personally saw and examined the patient. I verified all adams points and agree with Nilay Benitez PA-C with the following exceptions and/or additions: 68 year old female s/p left TKA. No complications listed on operation note. EBL 10ml. Complaining of pain in knee and calf. Requesting diphenhydramine that she takes chronically for sleep aid. O/E HS RRR, no murmurs, Chest CTAB, Abdo SNT A/P VTE / bowel / pain management per primary orthopedic team Added diphenhydramine as "sleep aid" as she takes this chronically although warned against chronic use of this medication. Otherwise as above History of Present Illness Reason for Consultation: Post-op medical management Requesting Physician: David Dinh MD Attending Physician: Dr. Luisito Escobar History of Present Illness Tere is a 68 year old female with a PMH significant for hypothyroidism, asthma, GERD and hyperlipidemia who presented to the [facility] on 02/16/24 for scheduled Left Knee Medial Retinacular and quad tendon repair (Left), irrigation debridement knee joint. Debridement hypertrophic scar skin incision with Dr. Dinh. Per review of the operative note anesthesia type is listed as MAC/spinal/regional, EBL was listed as 10 cc, there were no listed intraopera tive complications. We were consulted for postoperative medical management. Patient was sitting in bed no acute distress at time of exam, still having moderate amount of pain since her procedure but otherwise no other complaints. When asked, she states that she had her a.m. doses of Celexa, Zyrtec, and Singulair but has been holding her aspirin as instructed. She confirms that she has not required recent doses of her as needed prednisone for asthma exacerbations. She brought her own CPAP machine to use [employer]. Was able to eat dinner without issue. Towards the end of my exam she started to notice discomfort in the right forearm at the site of her current IV, it appears to be infiltrating on inspection. Please refer to Dr. Escobar's attestation to any changes to the treatment plan Allergies Allergy/AdvReac Type Severity Reaction Status Date / Time mold Allergy Intermediate MOLD TREE Verified 02/16/24 10:09 POLLEN-ASTHMA SYMPTOMS adhesive tape AdvReac Severe SKIN Verified 02/16/24 10:09 IRRITATION -PAPER TAPE OK Penicillins AdvReac Severe COLITIS Verified 02/16/24 10:09 INTERNAL BLEEDING garlic AdvReac Intermediate NAUSEA AND Verified 02/16/24 10:09 VOMITNG lettuce AdvReac Intermediate Verified 02/16/24 10:09 tomato AdvReac Intermediate TOMATO Verified 02/16/24 10:09 SAUCE-GERD watermelon AdvReac Intermediate Verified 02/16/24 10:09 steri strips Allergy Severe Redness of Uncoded 02/16/24 10:09 Skin and inflammation/pus surgical damien Allergy Severe Redness of Uncoded 02/16/24 10:09 Skin and inflammation/pus Home Medications Medication Instructions Recorded Confirmed Type albuterol sulfate 90 mcg/actuation 2 puff inhalation Q6H PRN Wheezing 05/15/19 02/16/24 History aerosol inhaler budesonide-formoterol HFA 160 2 puff inhalation Q12H 05/15/19 02/16/24 History mcg-4.5 mcg/actuation aerosol inhaler (Symbicort) cyclosporine 0.05 % eye drops in a 1 drp ophthalmic (eye) Q12H 05/15/19 02/16/24 History dropperette (Restasis) montelukast 10 mg tablet 10 mg PO PM 10/21/19 07/24/24 History (Singulair) omeprazole 40 mg capsule,delayed 40 mg PO BID 05/15/19 02/16/24 History release simvastatin 20 mg tablet 20 mg PO HS 05/15/19 02/16/24 History levothyroxine 100 mcg tablet 100 mcg PO QAM 04/04/20 02/16/24 History L.acidophilus,rhamnosus-B.breve-S.thermophilus 1 tab PO QAM 11/11/23 02/16/24 History 3 billion cell chew tab cetirizine 10 mg tablet (Zyrtec) 10 mg PO QAM 11/11/23 02/16/24 History citalopram 10 mg tablet (Celexa) 10 mg PO QAM 11/11/23 02/16/24 History clindamycin HCl 300 mg capsule 600 mg PO UD PRN dental procedures 11/11/23 02/16/24 History ipratropium 0.5 mg-albuterol 3 mg 3 ml inhalation Q6H PRN sob 11/11/23 02/16/24 History (2.5 mg base)/3 mL nebulization soln meloxicam 7.5 mg tablet 7.5 mg PO BID 11/11/23 02/16/24 History prednisone 10 mg tablet 10 mg PO DAILY PRN bronchitis or 11/11/23 02/16/24 History wheezing triamcinolone acetonide 55 55 mcg intranasal BID 11/11/23 02/16/24 History mcg/actuation nasal spray,aerosol oxycodone 5 mg tablet 5 - 10 mg (1 - 2 x 5 mg) PO Q6H 12/14/23 02/16/24 Rx PRN pain #30 tabs aspirin 81 mg capsule 81 mg PO DAILY 02/09/24 02/16/24 History Patient History Medical History KUMAR (dyspnea on exertion) Chronic with asthma- stable per patient No LE edema Does have ECHO scheduled by PCP 12/06/23 Allergic rhinitis Hx of migraines rare / 1-2 year Sleep apnea CPAP compliant Hiatal hernia GERD (gastroesophageal reflux disease) controlled and stable Hypothyroidism Asthma uses PRN inh 2-3 x per month on average - well controlled and stable Hyperlipidemia Surgical History History of total left knee replacement (11/2023) [facility] History of total replacement of both shoulder joints History of bilateral carpal tunnel release History of total right hip replacement History of esophagogastroduodenoscopy (EGD) History of colonoscopy History of right knee joint replacement 06/12/2019 [facility] History of hand surgery x 3 left and right hand, right trigger finger release Exploratory laparotomy scar MULTIPLE RELATED TO ENDOMETRIOSIS History of appendectomy History of hysterectomy TOTAL History of arthroscopy R/L KNEE- MENISCUS REPAIR H/O sinus surgery MULTIPLE History of tonsillectomy Family History Mother , CHF Family history of diabetes mellitus Father TIA (transient ischemic attack) Other No family history of adverse response to anesthesia Denies family history of Myocardial infarction Social History Smoking Status: Never smoker Second Hand Exposure: No; Do You Dip or Chew Tobacco: No; Tobacco Cessation Education Requested by Patient: No Hx Alcohol Use: No Hx Substance Use: No Preferred Language: Mongolian Communication Ability: Effective Property Disposal Manager Required: No Beliefs That Will Affect Care: None marital status: / Current Living Situation: Alone Other Information That Helps Us Care for You: No Feels Safe at Home: Yes Safety Concerns: Feels Safe At This Time Assistive Devices: CPAP, Denture - Upper, Denture - Lower, Glasses and Nebulizer Physical Exam Physical Exam: Physical Exam: General: In no acute distress, stated age, well-nourished, good hygiene HEENT: Normocephalic, atraumatic, no scleral icterus, pupils around round, symmetrical, and reactive to light, moist mucus membranes, trachea midline, no thyromegaly Chest/Pulm: No respiratory distress, symmetrical chest expansion, clear breath sounds throughout Cardiac: RRR, no murmurs noted Abdomen: Negative for ascites and bruising, normoactive bowel sounds, soft, non-tender to palpation throughout Musculoskeletal: LLE currently wrapped and with immobilizer in place, intact sensation and motor function in the feet Extremities: Radial, dorsalis pedis, and posterior tibial pulses are intact and symmetrical, no edema noted in the BL LE's Skin: patient with mild swelling and erythema at the site of peripheral IV insertion in the right forearm Neuro: Alert and oriented to person, place, month, year, and president, no focal defects, no tremors noted Psych: No acute distress, calm and cooperative during the exam Results & Data Results & Data Vital Signs (Past 12 Hours) Vital Signs Temp Pulse Pulse Resp BP Pulse Ox O2 Del Method 02/16/24 18:36 36.7 C 101 H 16 132/60 97 Room Air 02/16/24 17:28 36.7 C 92 H 17 121/76 97 Room Air 02/16/24 17:03 36.7 C 91 H 16 114/80 95 Room Air 02/16/24 16:39 36.3 C L 72 18 111/72 97 Room Air 02/16/24 15:55 74 16 112/71 96 Room Air 02/16/24 15:40 36.1 C L 80 15 109/72 93 Room Air 02/16/24 15:30 82 15 112/72 95 Room Air 02/16/24 15:20 82 14 104/78 95 Room Air 02/16/24 15:11 37.4 C 78 19 101/56 L 96 Room Air 02/16/24 11:00 76 20 114/68 97 Room Air 02/16/24 09:44 36.6 C 92 H 20 136/104 H 97 Room Air Diagnostic Findings Knee X-Ray 02/16/24 15:20 XR knee LT 1 or 2V routine CLINICAL HISTORY: Surgical Post Op TECHNIQUE: 2 views of the left knee were obtained. Comparison: Comparison is made to knee radiograph 12/13/2023 FINDINGS: Patient is status post total knee arthroplasty with expected postsurgical changes including soft tissue swelling and subcutaneous emphysema. No periarticular lucency or hardware fracture is seen. IMPRESSION: Expected postoperative appearance. ACT 112: Negative or not required by law. Electronically signed by: Lan Montanez M.D. 02/16/2024 4:05 PM PG Care Time/CCT Total # of Minutes Spent Total Time Spent with Patient: Total time spent is greater than 50% in coordination of care (as documented) at patient's floor/unit and/or counseling patient: C[place] [address] IN/OBS CONSULT LVL 4,60M Patient Type Established Medical Decision Making Moderate Complexity Diagnoses 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, subsequent encounter S86.812D Encounter type: subsequent encounter Sleep apnea G47.30 Hypothyroidism E03.9 Asthma J45.909 (1) 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 Encounter type: subsequent encounter Qualified Code(s): S86.812D - Strain of other muscle(s) and tendon(s) at lower leg level, left leg, subsequent encounter
[2024-02-16] MEDS: HYDROmorphone HCL 2 MG TAB PO PRN (19:50)
[2024-02-16] MEDS: ASPIRIN 81 MG ECTAB PO SCH (22:00)
[2024-02-16] MEDS: SENNA 8.6 MG TAB PO SCH (22:02)
[2024-02-16] MEDS: SIMVASTATIN 20 MG TAB PO SCH (22:02)
[2024-02-16] MEDS: PANTOprazole 40 MG TAB PO SCH (22:03)
[2024-02-16] MEDS: DOCUSATE SODIUM 100 MG CAP PO SCH (22:03)
[2024-02-16] MEDS: MONTELUKAST SODIUM 10 MG TABLET PO SCH (22:03)
[2024-02-16] MEDS: TRANEXAMIC ACID / 0.7% NACL 1,000 MG/100 ML BAG IV SCH (22:04)
[2024-02-17] MEDS: diphenhydrAMINE Capsule 25 MG CAP PO PRN (00:01)
[2024-02-17] MEDS: LEVOTHYROXINE SODIUM 100 MCG TABLET PO SCH (06:03)
[2024-02-17 07:45] LABS: Hematocrit (blood only) 36.9 % (37.0-47.0); Hemoglobin 11.7 g/dl (12.0-16.0); Mean Corpuscular Hemoglobin 29.5 pg (25.0-34.0); Mean Corpuscular Hgb Conc 31.7 g/dL (32.0-36.0); Mean Corpuscular Volume 93.2 fL (80.0-100.0); Mean Platelet Volume 9.8 fL (9.4-12.4); Platelet Count 315 K/uL (130-400); RDW Coefficient of Variation 12.1 % (11.5-14.5); RDW Standard Deviation 42.2 fL (36.4-46.3); Red Blood Count 3.96 M/uL (4.20-5.40); White Blood Count 15.53 K/ul (4.8-10.8)
[2024-02-17 08:03] LABS: Calcium 9.6 mg/dl (8.6-10.3); Creatinine Clr Calc Pharmacy 75.4 ml/min; Est GFR (African American) 104.9 ml/min; Est GFR (Non-African American) 90.5 ml/min; Potassium 3.9 mmol/L (3.5-5.1)
--- NOTE | 2024-02-17 08:11 | Orthopedic Progress Note ---
Date of Service February 17, 2024 Assessment & Plan (1) 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: Plan: Status post medial retinacular tear failed repair status post repair. We did not do the intra-articular injections so she is having more pain. She will have to be admitted for pain management issues. Plan is to send her home tomorrow after dressing change on oral Dilaudid. Admission and Anticipated Discharge Date Admission Date: February 16, 2024 Subjective Patient had severe pain last evening and still has quite a bit of pain requiring intravenous Dilaudid. Review of Systems Review of Systems: No chest pain shortness of breath. Physical Exam Physical Exam: Left lower extremity circulation normal distal neurologic exam intact. Knee immobilizer in place. Results & Data Vital Signs (Past 12 Hours) Vital Signs Temp Pulse Resp BP Pulse Ox O2 Del Method 02/17/24 07:04 35.0 C L 81 16 126/65 95 Room Air 02/17/24 03:23 36.6 C 66 16 119/63 96 Room Air 02/16/24 23:09 36.5 C 94 H 16 110/64 94 Room Air Laboratory Results Gram stain was negative for white blood cells and organisms Diagnostic Findings X-rays typical postoperative changes with some relative patella [place] (1) 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 Encounter type: subsequent encounter Qualified Code(s): S86.812D - Strain of other muscle(s) and tendon(s) at lower leg level, left leg, subsequent encounter
--- NOTE | 2024-02-17 08:21 | Hospitalist Progress Note ---
Date of Service February 17, 2024 Assessment & Plan (1) 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: Plan: s/p Left Knee Medial Retinacular and quad tendon repair(Left), irrigation debridement knee joint. Debridement hypertrophic scar skin incision- David Dinh MD on 02/15 EBL 10cc WBC elevation suspected 2nd to steroids with surgery. Has been afebrile Hgb 12--> 11.7, acute blood loss anemia but suspect more dilutional from IVF post-operatively and remains stable given such. Renal function stable BUN/Cr 17/0.68 Abx/Pain control/antiemetics/bowel regimen/PT/OT per primary service Ongoing pain control being addressed by primary service, plans to dc in AM on PO control. Encouraged continued bowel regimen. DVT proph: ASA 81mg BID (2) Sleep apnea: Plan: Continue CPAP HS (3) Hypothyroidism: Plan: Continue home Synthroid (4) Asthma: Plan: Currently stable on room air, in no respiratory distress, with clear lung villasenor, on room air Continue incentive spirometry, albuterol Plan Dispo: continued inpatient stay, being admitted for ongoing pain control per primary service Thank you for allowing hospitalist service to participate in the care of Ms Shaikh. Will plan to sign off unless any acute issues arise. Please call with any questions/concerns. Admission and Anticipated Discharge Date Admission Date: February 16, 2024 Subjective Evaluated this morning, having ongoing issues with pain medication. Did not get intraarticular block which she forgot he (surgeon) said he wasn't going to be able to do which is why she is having more pain today. She just got done working with therapy, having increased discomfort to anterior knee. Requesting Toradol, RN to provide. No fever/chills, chest pain, shortness of breath, nausea or vomiting. Passing gas, and reports usually on aggressive regimen when she leaves - encouraged continued bowel regimen on pain medication. Anticipates discharge tomorrow on oral pain control. Questions/concerns addressed at this time. Physical Exam Physical Exam: General: 68yo female laying in bed, just finished working with therapy, NAD but reporting pain to knee/need for medication Head atraumatic, thinned hair, trachea midline, thick neck, trachea midline Resp; Even, unlabored, no w/c/r, on room air, CPAP in room on bedside table CV: RRR, no significant m/r/g, no pitting edema, pulses palpable GI: +BS throughout, slight distension but nontender MSK/Neuro: dressing to LEFT knee intact, +tenderness anteriorly, compartments soft/supple, sensation intact, dorsiflexion/plantar flexion intact bilaterally Psych: AOx3, cooperative with exam Results & Data Results & Data Vital Signs (Past 12 Hours) Vital Signs Temp Pulse Resp BP Pulse Ox O2 Del Method 02/17/24 07:04 35.0 C L 81 16 126/65 95 Room Air 02/17/24 03:23 36.6 C 66 16 119/63 96 Room Air 02/16/24 23:09 36.5 C 94 H 16 110/64 94 Room Air Laboratory Results 02/17/24 Range/Units 06:50 WBC 15.53 H (4.8-10.8) K/ul RBC 3.96 L (4.20-5.40) M/uL Hgb 11.7 L (12.0-16.0) g/dl Hct 36.9 L (37.0-47.0) % MCV 93.2 (80.0-100.0) fL MCH 29.5 (25.0-34.0) pg MCHC 31.7 L (32.0-36.0) g/dL RDW Std Deviation 42.2 (36.4-46.3) fL RDW Coeff of Scarlet 12.1 (11.5-14.5) % Plt Count 315 (130-400) K/uL MPV 9.8 (9.4-12.4) fL Sodium 137 (136-145) mmol/L Potassium 3.9 (3.5-5.1) mmol/L Chloride 106 (98-107) mmol/L Carbon Dioxide 24 (21-32) mmol/L Anion Gap 7 (3-11) BUN 17 (6-23) mg/dl Creatinine 0.68 (0.6-1.2) mg/dl Est Cr Clr Drug Dosing 75.4 ml/min Est GFR ( Amer) 104.9 ml/min Est GFR (Non-Af Amer) 90.5 ml/min BUN/Creatinine Ratio 25.0 H (10-20) Glucose 135 H (70-99(Fasting)) mg/dl Calcium 9.6 (8.6-10.3) mg/dl Diagnostic Findings Knee X-Ray 02/16/24 15:20 XR knee LT 1 or 2V routine CLINICAL HISTORY: Surgical Post Op TECHNIQUE: 2 views of the left knee were obtained. Comparison: Comparison is made to knee radiograph 12/13/2023 FINDINGS: Patient is status post total knee arthroplasty with expected postsurgical changes including soft tissue swelling and subcutaneous emphysema. No periarticular lucency or hardware fracture is seen. IMPRESSION: Expected postoperative appearance. ACT 112: Negative or not required by law. Electronically signed by: Lan Montanez M.D. 02/16/2024 4:05 PM PG Care Time/CCT Total # of Minutes Spent Total Time Spent with Patient: Total time spent is greater than 50% in coordination of care (as documented) at patient's floor/unit and/or counseling patient: Coding Level of Care Code 69971 SUB INP/OBS CARE 2/35MIN Diagnoses 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, subsequent encounter S86.812D Encounter type: subsequent encounter Sleep apnea G47.30 Hypothyroidism E03.9 Asthma J45.909 (1) 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 Encounter type: subsequent encounter Qualified Code(s): S86.812D - Strain of other muscle(s) and tendon(s) at lower leg level, left leg, subsequent encounter
[2024-02-17] MEDS: CETIRIZINE HCL 10 MG TABLET PO SCH (08:31)
[2024-02-17] MEDS: MULTIVITAMIN TAB PO SCH (08:31)
[2024-02-17] MEDS: CITALOPRAM 20 MG TAB PO SCH (08:31)
[2024-02-17] MEDS: FLUTICASONE/VILANTEROL 200/25MCG 14 PUFFS/INHALER INH SCH (08:32)
[2024-02-17] MEDS: FLUTICASONE PROPIONATE NA SPR 16 GM BTL SCH (08:32)
[2024-02-17] MEDS ORDERED: NON-FORMULARY MEDICATION (L.Acid-L.Rham-B.Breve-S.Therm 3 billion cell Tablet,Chewable) PO SCH (09:00)
[2024-02-17] MEDS: HYDROmorphone INJ 0.5 MG/0.5 ML SYR IV STA (16:05)
[2024-02-17] MEDS: HYDROmorphone INJ 0.5 MG/0.5 ML SYR IV PRN (20:49)
[2024-02-17] MEDS: diphenhydrAMINE Capsule 25 MG CAP PO SCH (20:56)
[2024-02-17] MEDS: VANCOMYCIN HCL 1,250 MG in SODIUM CHLORIDE 0.9% 500 ML IV SCH (22:48)
--- NOTE | 2024-02-18 08:16 | Orthopedic Progress Note ---
Date of Service February 18, 2024 Assessment & Plan (1) 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: Plan: Postop day 2 status post medial retinacular repair. Pain management issues. Continue admission due to ongoing pain issues for 1 more day. Will obtain a d ouble upright hinged knee brace and do 0-30 range of motion on it but knee brace to be locked in full extension. Will try muscle relaxer under observation in the hospital. Admission and Anticipated Discharge Date Admission Date: February 17, 2024 Subjective Patient still having a lot of knee pain despite IV Dilaudid tried oral Dilaudid she has had some IV Toradol. Physical Exam Physical Exam: Incision completely benign no erythema no drainage minimal swelling. Neurological exam intact. Results & Data Vital Signs (Past 12 Hours) Vital Signs Temp Pulse Resp BP Pulse Ox O2 Del Method 02/18/24 07:01 36.4 C L 65 16 146/77 H 94 Room Air 02/17/24 20:44 37.0 C 68 16 148/82 H 95 Room Air (1) 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 Encounter type: subsequent encounter Qualified Code(s): S86.812D - Strain of other muscle(s) and tendon(s) at lower leg level, left leg, subsequent encounter
[2024-02-18] MEDS: SULFAMETHOXAZOLE/TRIMETHOPRIM DS 800/160MG TAB PO SCH (11:14)
[2024-02-18] MEDS: CYCLOBENZAPRINE HCL 10 MG TAB PO SCH (11:14)
[2024-02-18] MEDS: MELOXICAM 7.5 MG TAB PO SCH (11:15)
--- NOTE | 2024-02-19 08:09 | Orthopedic Progress Note ---
Date of Service February 19, 2024 Assessment & Plan (1) 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: Plan: POD #3 left knee medial retinacular quad tendon repair, I&D knee joint and hypertrophic scar tissue with Dr. Dinh Pain has been controlled on PO Dilaudid and she had relief with the addition of Flexeril WBAT with double hinged knee brace, locked in extension. Will allow 0-30 degrees ROM ASA BID for DVT PPX Plan to d/c home today with family Admission and Anticipated Discharge Date Admission Date: February 17, 2024 Subjective Doing better this morning. Was able to control pain with PO medications yesterday and had relief with addition of Flexeril. She has been up and out of bed with knee immobilizer on and has been doing well with this. She feels ready to go home today. Physical Exam Physical Exam: Initially resting in bed, no acute distress. Did well getting up and out of bed with walker and knee immobilizer in place Musculoskeletal: LLE: Incision site well approximated with nylon sutures in place. Mild edema about the knee but no surrounding erythema, wound dehiscence or abnormal drainage. Dorsi/plantarflexion intact, able to initiate straight leg raise. D/p pulse intact, NVI Results & Data Vital Signs (Past 12 Hours) Vital Signs Temp Pulse Resp BP Pulse Ox O2 Del Method 02/18/24 23:00 36.9 C 72 02/18/24 20:07 37.1 C 71 16 127/78 96 Room Air (1) 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 Encounter type: subsequent encounter Qualified Code(s): S86.812D - Strain of other muscle(s) and tendon(s) at lower leg level, left leg, subsequent encounter
--- NOTE | 2024-02-25 13:08 | Discharge Summary ---
Date of Service February 25, 2024 Admission HPI Per Admitting Provider 68-year-old female status post knee replacement 12/13/2023. Had previous knee replacement by myself 2019 uneventful recovery with excellent outcome. Similar type knee replacement was performed similar fashion to her left knee however she had significant postoperative healing issues with staple irritation and skin edge necrosis. This required skin debridement and wound management eventually topical collagen to get the wound to heal. Despite the wound healing problems patient been very active postoperatively. As of 2 weeks postop she was not using any ambulatory support and had normal gait. Follow-up x-ray demonstrated increased lateral patellar tilt and patient had some sense of weakness of her knee and some ongoing low-grade pain. Patient denies headaches, sweats, fevers, chills, double vision, blurred vision, cough, sore throat, dysphagia, chest pain, sob, wheezing, n/v/d/c, numbness, tingling, fatigue, urinary symptoms, mood disorders. ROS positive for sleep apnea with use of CPAP, gets some shortness of breath with activity or walking up a hill. Has arthritic issues in the spine. Has acid reflux with hiatal hernia. Principal Diagnosis [facility] [place] [address] History & Physical Report Signed Patient: IAN ALTMAN Admit Date: 02/09/24 MR#: [id number] Att Phy: David Dinh M.D. Acct ID: [id number] Iliana Phy: Scotty Mantilla D.O. Date: 1955 Fam Phy: Age: 68 Location: U Sex: F Room/Bed: cc: ~ *NOTICE TO RECEIVING LIBERTARIAN/AGENCY This information is strictly Confidential and protected under [place] law. [place] law prohibits you from making any further disclosure of this information unless further disclosure is expressly permitted by the written consent of the person to whom it pertains or is authorized by law. A general authorization for the release of medical or other information is not sufficient for this purpose. Hospital accepts no responsibility if the information is made available to any other person, INCLUDING THE PATIENT. 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 Serum and knee aspirate do not suggest any infection. Recommendation is to proceed with a revision repair of the retinacular tissue using suture anchors in the patella and nonabsorbable sutures. Will go slower on the postoperative rehab. Since patient has had reactions to adhesive Steri-Strips and recent skin irritation and reaction to damien last procedure best option is to use nylon sutures for closure of the skin. Will use collagen skin treatment early in postoperative period. Encounter type: subsequent encounter Qualified Code(s): S86.812D - Strain of other muscle(s) and tendon(s) at lower leg level, left leg, subsequent encounter (2) Status post left knee replacement: History of Present Illness Chief Complaint: Left knee pain and weakness Primary Care Provider: Scotty Mantilla 68-year-old female status post knee replacement 12/13/2023. Had previous knee replacement by myself 2019 uneventful recovery with excellent outcome. Similar type knee replacement was performed similar fashion to her left knee however she had significant postoperative healing issues with staple irritation and skin edge necrosis. This required skin debridement and wound management eventually topical collagen to get the wound to heal. Despite the wound healing problems patient been very active postoperatively. As of 2 weeks postop she was not using any ambulatory support and had normal gait. Follow-up x-ray demonstrated increased lateral patellar tilt and patient had some sense of weakness of her knee and some ongoing low-grade pain. Patient denies headaches, sweats, fevers, chills, double vision, blurred vision, cough, sore throat, dysphagia, chest pain, sob, wheezing, n/v/d/c, numbness, tingling, fatigue, urinary symptoms, mood disorders. ROS positive for sleep apnea with use of CPAP, gets some shortness of breath with activity or walking up a hill. Has arthritic issues in the spine. Has acid reflux with hiatal hernia. Allergies Allergy/AdvReac Type Severity Reaction Status Date / Time mold Allergy Intermediate MOLD TREE Verified 02/09/24 08:26 POLLEN-ASTHMA SYMPTOMS adhesive tape AdvReac Severe SKIN Verified 02/09/24 08:26 IRRITATION -PAPER TAPE OK Penicillins AdvReac Severe COLITIS Verified 02/09/24 08:26 INTERNAL BLEEDING garlic AdvReac Intermediate NAUSEA AND Verified 02/09/24 08:26 VOMITNG lettuce AdvReac Intermediate Verified 02/09/24 08:26 tomato AdvReac Intermediate TOMATO Verified 02/09/24 08:26 SAUCE-GERD watermelon AdvReac Intermediate Verified 02/09/24 08:26 steri strips Allergy Severe Redness of Uncoded 02/09/24 08:26 Skin and inflammation/pus surgical damien Allergy Severe Redness of Uncoded 02/09/24 08:26 Skin and inflammation/pus Home Medications Medication Instructions Recorded Confirmed Type albuterol sulfate 90 mcg/actuation 2 puff inhalation Q6H PRN Wheezing 05/15/19 02/09/24 History aerosol inhaler budesonide-formoterol HFA 160 2 puff inhalation Q12H 05/15/19 02/09/24 History mcg-4.5 mcg/actuation aerosol inhaler (Symbicort) cyclosporine 0.05 % eye drops in a 1 drp ophthalmic (eye) Q12H 05/15/19 02/09/24 History dropperette (Restasis) montelukast 10 mg tablet 10 mg PO PM 05/15/19 02/09/24 History (Singulair) omeprazole 40 mg capsule,delayed 40 mg PO BID 05/15/19 02/09/24 History release simvastatin 20 mg tablet 20 mg PO HS 05/15/19 02/09/24 History levothyroxine 100 mcg tablet 100 mcg PO QAM 04/04/20 02/09/24 History L.acidophilus,rhamnosus-B.breve-S.thermophilus 1 tab PO QAM 11/11/23 02/09/24 History 3 billion cell chew tab cetirizine 10 mg tablet (Zyrtec) 10 mg PO QAM 11/11/23 02/09/24 History citalopram 10 mg tablet (Celexa) 10 mg PO QAM 11/11/23 02/09/24 History clindamycin HCl 300 mg capsule 600 mg PO UD PRN dental procedures 11/11/23 02/09/24 History ipratropium 0.5 mg-albuterol 3 mg 3 ml inhalation Q6H PRN sob 11/11/23 02/09/24 History (2.5 mg base)/3 mL nebulization soln meloxicam 7.5 mg tablet 7.5 mg PO BID 11/11/23 02/09/24 History prednisone 10 mg tablet 10 mg PO DAILY PRN bronchitis or 11/11/23 02/09/24 History wheezing triamcinolone acetonide 55 55 mcg intranasal BID 11/11/23 02/09/24 History mcg/actuation nasal spray,aerosol oxycodone 5 mg tablet 5 - 10 mg (1 - 2 x 5 mg) PO Q6H 12/14/23 02/09/24 Rx PRN pain #30 tabs aspirin 81 mg capsule 81 mg PO DAILY 02/09/24 02/09/24 History Past Med/Surg History Problem List (Updated 02/15/24 @ 06:38 by David Dinh MD) 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 Status post left knee replacement Unilateral primary osteoarthritis, left knee Arthritis of right shoulder region Allergic rhinitis Knee pain Obesity Encounter for pre-operative examination DJD of left shoulder Medical History KUMAR (dyspnea on exertion) Chronic with asthma- stable per patient No LE edema Does have ECHO scheduled by PCP 12/06/23Allergic rhinitis Hx of migraines rare / 1-2 yearSleep apnea CPAP compliantHiatal hernia GERD (gastroesophageal reflux disease) controlled and stableHypothyroidism Asthma uses PRN inh 2-3 x per month on average - well controlled and stableHyperlipidemia Surgical History History of total left knee replacement (11/2023) MNMCHistory of total replacement of both shoulder joints History of bilateral carpal tunnel release History of total right hip replacement History of esophagogastroduodenoscopy (EGD) History of colonoscopy History of right knee joint replacement 06/12/2019 MNMCHistory of hand surgery x 3 left and right hand, right trigger finger releaseExploratory laparotomy scar MULTIPLE RELATED TO ENDOMETRIOSISHistory of appendectomy History of hysterectomy TOTALHistory of arthroscopy R/L KNEE- MENISCUS REPAIRH/O sinus surgery MULTIPLEHistory of tonsillectomy Family History Mother , CHF Family history of diabetes mellitusFather TIA (transient ischemic attack)Other No family history of adverse response to anesthesia Denies family history of Myocardial infarction Social History Smoking Status: Never smoker Second Hand Exposure: No; Do You Dip or Chew Tobacco: No; Tobacco Cessation Education Requested by Patient: No Hx Alcohol Use: No Hx Substance Use: No Preferred Language: Luxembourgish Communication Ability: Effective Block Cuber Required: No Beliefs That Will Affect Care: None marital status: / Current Living Situation: Alone Other Information That Helps Us Care for You: No Feels Safe at Home: Yes Safety Concerns: Feels Safe At This Time Assistive Devices: CPAP, Denture - Upper, Denture - Lower, Glasses and Nebu lizer Review of Systems All systems reviewed & are unremarkable except as noted in HPI & below Physical Exam Constitutional: WD/WN, vitals as above Respiratory: normal respiratory effort; no respiratory distress Cardiovascular: Rate/Rhythm: regular rate and regular rhythm Musculoskeletal: Left knee 0 to 130 degrees range of motion. Mild to moderate knee effusion. Defect in medial retinaculum consistent with failed medial retinacular repair, increase medial retinacular restraint with lateral patellar tilt. Distal neurological exam intact. Circulation normal. No knee instability with varus valgus stress or posterior. Incision healed with hypertrophic irregular scar. No drainage. No erythema. Skin: no rashes, warm and dry Neurologic: normal touch/pain/proprioception Psychiatric: A+Ox3, euthymic affect Results & Data Laboratory Results Knee aspirate demonstrates negative alpha defense and CRP 0.8 which is normal total nucleated cell count 365 which is normal, 47.7% neutrophils. Negative antimicrobial panel. Negative crystals. Serum CRP ESR white cell count also normal. Signed By: <Electronically signed by David Dinh MD> 02/15/24 0643 Created: 02/15/24 0623 The status of this report is Signed. Draft = Not yet reviewed or approved by Medical Physician. Signed = Reviewed and approved by Medical Physician. Discharge Exam Incision completely benign no erythema no drainage minimal swelling. Neurological exam intact. Constitutional WD/WN, vitals as above Respiratory normal respiratory effort; no respiratory distress Cardiovascular Rate/Rhythm: regular rate and regular rhythm Skin no rashes, warm and dry Neurologic normal touch/pain/proprioception Psychiatric A+Ox3, euthymic affect Discharge Data Allergies Allergy/AdvReac Type Severity Reaction Status Date / Time mold Allergy Intermediate MOLD TREE Verified 02/16/24 10:09 POLLEN-ASTHMA SYMPTOMS adhesive tape AdvReac Severe SKIN Verified 02/16/24 10:09 IRRITATION -PAPER TAPE OK Penicillins AdvReac Severe COLITIS Verified 02/16/24 10:09 INTERNAL BLEEDING garlic AdvReac Intermediate NAUSEA AND Verified 02/16/24 10:09 VOMITNG lettuce AdvReac Intermediate Verified 02/16/24 10:09 tomato AdvReac Intermediate TOMATO Verified 02/16/24 10:09 SAUCE-GERD watermelon AdvReac Intermediate Verified 02/16/24 10:09 steri strips Allergy Severe Redness of Uncoded 02/16/24 10:09 Skin and inflammation/pus surgical damien Allergy Severe Redness of Uncoded 02/16/24 10:09 Skin and inflammation/pus Consultations 02/12/24 15:18 Consult Hospitalist Routine Procedures Performed Operation Date: 02/16/24 11:30 Actual Procedures p Left Knee Medial Retinacular Repair(Left) - David Dinh MD Ordered Studies 02/16/24 12:10 US - OR guided needle placemen Routine Hospital Course (1) 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 Dinh Pain has been controlled on PO Dilaudid and she had relief with the addition of Flexeril WBAT with double hinged knee brace, locked in extension. Will allow 0-30 degrees ROM ASA BID for DVT PPX Plan to d/c home today with family Total Time Total Time Spent Total Time Spent (In Minutes): 10 min Discharge Plan Discharge Items Patient Disposition: Home - Self-Care Reason For Visit: POSTOP LEFT KNEE MEDIAL RETINACULAR REPAIR Discharge Diagnosis: Medial retinacular tear left knee post total knee arthroplasty Condition on Discharge: Good Activity: Per Instructions section Non-emergency contact: Surgeon Call non-emergency contact if: your pain is not controlled, your pain is worsening and your temperature is above 101 Follow-up/Referrals: Scotty Mantilla D.OErnestina [Primary Care Provider] - Diet: Regular Addtl Attending Provider Instructions: ACTIVITY RECOMMENDATIONS: SELF CARE INSTRUCTIONS AFTER TOTAL KNEE REPLACEMENT A. You may need to continue a physical therapy program after discharge from the hospital. There are several options available to you. Your doctor will assist you in selecting the best one for you. 1. An out-patient facility 3 times a week for therapy. 2. Home therapy for 1 to 2 weeks with outpatient therapy to follow. 3. Continue working on all exercises taught by physical therapy three times a day for 20 minutes on non-therapy days. No range of motion past 90 degrees for at least 6 weeks. B. Weight as tolerated with a walker or as instructed by your physician. You must wear the knee immobilizer while ambulating for 6 weeks. C. It is okay to shower if minimal to no drainage from incision. No Baths. Do not soak wound. D. Make walking a part of your daily routine. Be up as much as comfortable with rest periods throughout the day. Rest with leg elevation is very important. Use the ice wrap frequently for the first 3-4 weeks. E. There are no restrictions on activities. You may ride in a car, shop, participate in consulting sales executive and all social activities. F. Wear the long elastic stockings (KAREN hose) 20 hours a day for one month after surgery. They can be removed several times a day for laundering and when showering. G. He will start the collagen topical powder once you are home from the hospital. Use as directed. SPECIAL CARE INSTRUCTIONS: VERY IMPORTANT TO READ AND REVIEW A. Take Aspirin (blood thinning medications) as directed by your doctor. If on Coumadin, have a pro-time (blood test) drawn according to your doctor's instructions. This will tell the doctor how well the Coumadin is thinning your blood. B. There are a few signs you need to watch for after you are home. Call [facility] if you notice any of the followin. Increased severe knee pain. Some pain is expected especially when you exercise. 2. Increased swelling in your leg or knee; pain or swelling of the calf muscle in either lower leg. 3. Any redness or fluid drainage from the incision. 4. Shortness of breath or chest pain. 5. A Temperature of 101 degrees F or greater. C. Please call [facility] at if you have any concerns or questions about your operation or recovery. The doctor or his nurse will return your call promptly. D. You must take antibiotics before dental work, bladder, bowel or other surgery. Your doctor will provide you with a permanent care to carry describing this precaution. FOLLOW UP VISIT: If appointment is not already scheduled: Please call [facility] to make a follow-up appointment for 1 weeks after your surgery at . Pending Studies at Discharge: No Stand-Alone Forms: My [facility] Medications and DC Order Prescriptions: New acetaminophen [Tylenol Extra Strength] 500 mg Tablet 1,000 mg PO Q8 Qty: 90 0RF aspirin 81 mg Tablet,Delayed Release (Dr/Ec) 81 mg PO BID Qty: 60 0RF hydromorphone [Dilaudid] 2 mg Tablet 2 mg PO Q6H PRN (Reason: pain) Qty: 15 0RF Rx Instructions: Initial therapy. David Dinh MD supervising. Surgery date 02/16/2024. sulfamethoxazole-trimethoprim [Bactrim DS] 800-160 mg Tablet 1 tab PO Q12 Qty: 14 0RF Continued omeprazole 40 mg Capsule,Delayed Release(Dr/Ec) 40 mg PO BID montelukast [Singulair] 10 mg Tablet 10 mg PO PM albuterol sulfate 90 mcg/actuation Hfa Aerosol Inhaler 2 puff INHALATION Q6H PRN (Reason: Wheezing) cyclosporine [Restasis] 0.05 % Dropperette 1 drp OPHTHALMIC (EYE) Q12H budesonide-formoterol [Symbicort] 160-4.5 mcg/actuation Hfa Aerosol Inhaler 2 puff INHALATION Q12H simvastatin 20 mg Tablet 20 mg PO HS levothyroxine 100 mcg Tablet 100 mcg PO QAM prednisone 10 mg Tablet 10 mg PO DAILY PRN (Reason: bronchitis or wheezing) ipratropium-albuterol 0.5 mg-3 mg(2.5 mg base)/3 mL Solution For Nebulization 3 ml INHALATION Q6H PRN (Reason: sob) clindamycin HCl 300 mg capsule 600 mg PO UD PRN (Reason: dental procedures) cetirizine [Zyrtec] 10 mg Tablet 10 mg PO QAM citalopram [Celexa] 10 mg Tablet 10 mg PO QAM meloxicam 7.5 mg tablet 7.5 mg PO BID triamcinolone acetonide 55 mcg/actuation Aerosol 55 mcg INTRANASAL BID L.acid-L.rham-B.breve-S.therm 3 billion cell Tablet,Chewable 1 tab PO QAM Discontinued oxycodone 5 mg tablet 5 - 10 mg PO Q6H PRN (Reason: pain) Qty: 30 0RF Rx Instructions: ongoing therapy, supervising dr abiodun dinh. max 6 tabs in 24 hours. date of surgery 12/13/23 aspirin 81 mg Capsule 81 mg PO DAILY Discharge Orders: Discharge Order (Routine); Ordered 02/19/24 Ordered By: Mitzy Zepeda Admission Data Admit Date/Time: 02/17/24 09:49 Attending Provider: David Dinh Admit Provider: David Dinh Primary Care Provider: Scotty Mantilla Other Providers: Nila Nicholson Other Interventions: Discharge Summary Assessment (RN) Last Done: 02/19/24 09:39 Supervising Physician Co-Signing Physician Notes I personally saw and examined the patient. I verified all adams points and agree with Nilay Benitez PA-C with the following exceptions and/or additions: 68 year old female s/p left TKA. No complications listed on operation note. EBL 10ml. Complaining of pain in knee and calf. Requesting diphenhydramine that she takes chronically for sleep aid. O/E HS RRR, no murmurs, Chest CTAB, Abdo SNT A/P VTE / bowel / pain management per primary orthopedic team Added diphenhydramine as "sleep aid" as she takes this chronically although warned against chronic use of this medication. Otherwise as above
== END 2024-02-19 11:30 | disposition home or self-care (01) | DRG 501 ==
LOC: ASU 09:19 → 3N 09:19